=== PATIENT | male | born 1935 | race Caucasian/White ===

== ENCOUNTER 2020-06-26 22:14 | Observation (INO) | payer MEDICARE, SELFPAY ==
[2020-06-26 22:28] VITALS: BP 114/52; PULSE 60; RESP 18; TEMP 36.6; O2SAT 99
--- NOTE | 2020-06-26 22:57 | ED.GENADULT ---
HPI - General Adult General Chief complaint: GI Bleed Stated complaint: rectal bleeding,warfarin Time Seen by Provider: 06/26/20 22:41 Source: patient History of Present Illness HPI narrative: Patient is a 84 y/o male complaining of rectal bleed starting prior to arrival. He states that he was having an BM and he noticed large amount of blood. He denies any abdominal pain, nausea or vomiting. He states that he has chronic SOB. He denies any chest pain. Related Data Home Medications Medication Instructions Recorded Confirmed aspirin 81 mg PO DAILY 06/26/20 atorvastatin 10 mg PO DAILY 06/26/20 carvedilol 6.25 mg PO Q12H 06/26/20 cholecalciferol (vitamin D3) 25 mcg PO DAILY 06/26/20 [Vitamin D3] isosorbide mononitrate 30 mg PO DAILY 06/26/20 mecobalamin (vitamin B12) 1,000 mcg PO DAILY 06/26/20 warfarin 4 mg PO DAILY 06/26/20 Allergies Allergy/AdvReac Type Severity Reaction Status Date / Time Penicillins AdvReac Hives Verified 06/26/20 22:58 Review of Systems Constitutional: Constitutional: Denies chills, Denies fever(s), Denies headache(s) and Denies weakness Eyes: Eyes: Denies blurry vision ENT: Denies headache(s) and Denies neck pain Cardiovascular: Cardiovascular: Denies chest pain and Denies dyspnea Respiratory: Respiratory: Denies cough and Denies dyspnea Gastrointestinal: Gastrointestinal: Denies abdominal pain, Reports hematochezia, Denies diarrhea, Denies nausea and Denies vomiting Genitourinary: Genitourinary: Denies hematuria and Denies dysuria Musculoskeletal: Musculoskeletal: Denies back pain and Denies neck pain Neurologic: Denies headache(s) and Denies weakness Exam Const: General: no acute distress and well developed Orientation/consciousness: oriented to person, oriented to place, oriented to time and patient oriented x3 HENMT: Head: normocephalic Ears: external ears normal General nose exam: Normal external nose present Eyes: General: appearance normal, both eyes and all related structures Conjunctivae: conjunctivae normal Neck: Neck: normal visual inspection and full ROM Chest: Chest palpation & inspection: normal inspection of the chest and no tenderness Resp: Effort & Inspection: normal respiratory effort Auscultation: clear to auscultation bilaterally Cardio: Rate: regular rate Rhythm: abnormal rhythm irregularly irregular GI: GI Palp: No abdominal tenderness and Yes Soft to palpation Skin: General skin exam: normal color and turgor normal Neuro: General: oriented to person, oriented to place, oriented to time and patient oriented x3 Cognition (Neuro): normal cognition Extrem: General: normal to inspection, full ROM and no pedal edema Psych: Appearance: grossly normal Mental Status: mental status grossly normal Affect: normal affect Course Consultations Consultation #1: Discussed with Dr. Samaniego, who agrees to admit. She also recommends GI consult. Date: 06/27/20 Time: 00:15 Consultation #2: Discussed with Dr. Laura Norwood, who agrees to consult. Date: 06/27/20 Time: 00:22 Vital Signs Vital signs: Vital Signs Temperature 36.6 C 06/26/20 22:28 Pulse Rate 60 06/26/20 22:28 Respiratory Rate 18 06/26/20 22:28 Blood Pressure 114/52 L 06/26/20 22:28 Pulse Oximetry 99 06/26/20 22:28 Temperature 36.6 C 06/26/20 22:28 Pulse Rate 87 06/27/20 00:43 Respiratory Rate 19 06/27/20 00:43 Blood Pressure 117/65 06/27/20 00:43 Pulse Oximetry 98 06/27/20 00:43 Medical Decision Making Vital Signs Vital Signs: Vital Signs Temperature 36.6 C 06/26/20 22:28 Pulse Rate 60 06/26/20 22:28 Respiratory Rate 18 06/26/20 22:28 Blood Pressure 114/52 L 06/26/20 22:28 Pulse Oximetry 99 06/26/20 22:28 Temperature 36.6 C 06/26/20 22:28 Pulse Rate 87 06/27/20 00:43 Respiratory Rate 19 06/27/20 00:43 Blood Pressure 117/65 06/27/20 00:43 Pulse Oximetry 98 06/27/20 00:43 Lab Data Result diagrams
[2020-06-26 23:07] VITALS: BP 123/84; PULSE 93; RESP 13; O2SAT 98
[2020-06-26 23:17] LABS: Basophils Percent Auto 0.2 % (0.2-1.2); Eosinophils Absolute Auto 0.1 K/mm3 (0-0.3); Eosinophils Percent Auto 0.8 % (0-4.4); Hematocrit 31.1 % (42.0-52.0); Hemoglobin 9.9 g/dL (14.0-18.0); Immature Granulocyte Absolute 0.02 K/mm3 (0.00-0.031); Immature Granulocyte Percent A 0.2 % (0-0.5); Lymphocytes Absolute Auto 10.61 K/mm3 (0.9-3.2); Lymphocytes Percent Auto 80.9 % (18.3-44.2); Mean Corpuscular HGB Conc 31.8 g/dl (32-36); Mean Corpuscular Hemoglobin 30.8 pg (26-34); Mean Corpuscular Volume 96.9 fl (80-100); Mean Platelet Volume 9.7 fl (7.4-10.4); Monocytes Absolute Auto 0.6 K/mm3 (0.1-0.6); Monocytes Percent Auto 4.9 % (2.6-8.5); Neutrophils Absolute Auto 1.7 K/mm3 (1.3-6.7); Platelet Count Result 121 k/mm3 (150-375); Red Blood Count 3.21 M/mm3 (4.6-6.20); White Blood Count 13.1 K/mm3 (4.5-10.0)
[2020-06-26 23:29] LABS: Alanine Aminotransferase 15 U/L (4-50); Albumin Level 3.8 g/dL (3.5-5.1); Alkaline Phosphatase 75 U/L (38-126); Anion Gap 9 mmol/L (8-16); Anisocytosis 1+ (NORMAL); Aspartate Amino Transferase 27 U/L (17-59); Bilirubin,Total 0.4 mg/dL (0.2-1.3); Blood Urea Nitrogen 52 mg/dL (9-20); Calcium 9.4 mg/dL (8.4-10.2); Carbon Dioxide 24 mmol/L (22-30); Chloride 105 mmol/L (98-107); Estimated CRCL calculation 21 ml/min; Estimated Glomerular Filt Rate 29; Glucose 164 mg/dL (75-110); Ovalocytes 1+ (NORMAL); Platelet Estimate Adequate (Adequate); Potassium 4.9 mmol/L (3.4-5.0); Sodium 138 mmol/L (137-145)
[2020-06-26 23:29] LABS: INR 3.2; Prothrombin Time 31.8 Seconds (11.1-14.7)
[2020-06-26 23:30] LABS: Partial Thromboplastin Time 48.4 SECONDS (22.3-36.8)
[2020-06-26 23:30] LABS: Smudge Cells FEW
--- NOTE | 2020-06-26 23:31 | ECG_ITS ---
Measurements Intervals [place] Rate: 85 P: AL: 0 QRS: 31 QRSD: 91 T: 69 QT: 354 QTc: 423 Interpretive Statements SINUS RHYTHM WITH MARKED FIRST DEGREE AV BLOCK ATRIAL PREMATURE COMPLEXES LOW QRS VOLTAGE IN PRECORDIAL LEADS NONSPECIFIC ST & T-WAVE ABNORMALITY- LAT/HIGH LAT LEADS BASELINE ARTIFACT- I, II, AVR, V5 ABNORMAL ECG Electronically Signed On 06-27-2020 6:43:22 CDT by Dante Soriano D.O.
[2020-06-27] VITALS (23 sets, daily range): BP systolic 100–146; BP diastolic 53–79; PULSE 74–94; RESP 12–20; TEMP 35.9–37.2; O2SAT 97–100; BMI 25.6
--- NOTE | 2020-06-27 01:49 | ADMGEN ---
This patient, Trey Sargent, was admitted to 2 Medical Room 250-01. Patient/family oriented to hospital policies and general routines including ID bracelet, bed and alarms, visiting hours, pain management, procedures, bathroom and other care routines, personal items, smoking policy, room service/diet, and visiting hours. Valuables list has been completed. Information on how to activate the Rapid Response Team has been discussed. Patient/Family are encouraged to report perceived risks to care and to ask questions if they do not understand what they are told or what they should do.
[2020-06-27 02:32] LABS: Hematocrit 28.9 % (42.0-52.0); Hemoglobin 9.3 g/dL (14.0-18.0)
[2020-06-27 06:27] LABS: Hematocrit 28.7 % (42.0-52.0); Hemoglobin 9.2 g/dL (14.0-18.0)
[2020-06-27 07:51] LABS: Hematocrit 29.1 % (42.0-52.0); Hemoglobin 9.2 g/dL (14.0-18.0); Mean Corpuscular HGB Conc 31.6 g/dl (32-36); Mean Corpuscular Hemoglobin 30.9 pg (26-34); Mean Corpuscular Volume 97.7 fl (80-100); Mean Platelet Volume 9.6 fl (7.4-10.4); Platelet Count Result 106 k/mm3 (150-375); Red Blood Count 2.98 M/mm3 (4.6-6.20); Red Cell Distribution Width 17.3 % (11.5-14.5); White Blood Count 12.1 K/mm3 (4.5-10.0)
[2020-06-27 08:08] LABS: Anion Gap 6 mmol/L (8-16); Blood Urea Nitrogen 50 mg/dL (9-20); Calcium 8.7 mg/dL (8.4-10.2); Carbon Dioxide 23 mmol/L (22-30); Chloride 108 mmol/L (98-107); Estimated CRCL calculation 24 ml/min; Estimated Glomerular Filt Rate 34; Glucose 114 mg/dL (75-110); Magnesium 2.1 mg/dL (1.6-2.3); Potassium 4.4 mmol/L (3.4-5.0); Sodium 137 mmol/L (137-145)
[2020-06-27 08:09] LABS: INR 3.1; Prothrombin Time 31.1 Seconds (11.1-14.7)
[2020-06-27] MEDS: ISOSORBIDE MONONITRATE 30 MG TAB.ER.24H PO (08:23)
[2020-06-27] MEDS: carvediloL 6.25 MG TABLET PO ×2 (08:23→22:19)
--- NOTE | 2020-06-27 10:22 | PM.IMHP ---
H&P: HPI History of Present Illness Date/Time: 06/27/20 10:22 Chief complaint: rectal bleeding Narrative: Trey Sargent is a 84 year old male with history of CAD s/p [place] 2 years ago, a. fib (listed in medical history but patient states he has never been told this; has pacemaker and is on chcf a/c with warfarin), and diet controlled diabetes who presented to the ER on 06/27 with complaints of rectal bleeding. Patient states he has had dark stools as black as that tv screen , pointing to the tv in the room, for about 2 months time. He notes that yesterday evening when he was taking his blood pressure before he went to bed, he had a sudden urge to defecate. On the way to the bathroom, he could not hold it any longer and noted bright red blood in his stool mixed with dark stool, prompting him to proceed to the ER. He denies any associated nausea/vomiting or abdominal pain. No history of GI bleed in the past. He has had some dizziness as of recently, and also feeling generally weak. He has chronic SOB and notes that this has been going on for years and has had asbestos exposure but has never been told he has any lung disease such as COPD/asthma. Today, he had another BM that was mixed bright red blood and dark/black stool. He denies any other symptoms at this time or associated symptoms. He takes all his medications as prescribed, although does note he occasionally takes one additional aspirin a day if he is not feeling good . Denies f/c/s, current headaches, changes in v/h, cp/palpitations, cough, dysuria, hematuria, cloudy urine, calf pain/swelling, other evidence of blood loss. While in the ED, he was noted to have Hgb of 9.9 with normal MCV, and leukocytosis. VSS stable and afebrile. Case was discussed with Dr. Loco in the ED and accepted the patient as a consult. He has had 2 colonoscopies in the past, last one being 6-7 years ago. States in first scope the GI specialist removed 3 polyps and second scope removed 6 polyps. He notes that he fell back in July and had a pacemaker placed by Dr. Pierce, EP physician at [facility]. He was never told he had atrial fibrillation and notes they could not find any arrhythmia at that time. He also notes that he was taken off his oral hyperglycemics after his PCP, Dr. Rock, noted his kidney function was worsened and subsequently lost weight and now is diet controlled DM. He says he has never been told he has had chronic kidney disease. Review of Systems Review of Systems: All systems reviewed & are unremarkable except as noted in HPI and below PMFSH Past Medical History Medical History Acute [place] Asbestos exposure Atrial fibrillation CAD (coronary artery disease) Chronic shortness of breath Current use of oysterman anticoagulation Diet-controlled diabetes mellitus Renal failure Skin cancer Surgical History Surgical History History of local excision of skin lesion History of permanent cardiac pacemaker placement History of thoracentesis Family History Family History Father Pneumonia Social History Social History Social History: Patient lives at home with his , Thee, and his son. He wishes his to be his surrogate MDM. He wishes to be a full code. He sees Dr. Rock as his PCP and Dr. 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 Smoking status: Former smoker Tobacco type: pipe, cigars and smokeless tobacco Smokeless tobacco user: chewing tobacco Second hand tobacco smoke exposure: No Smoking end date: 10/06/73 Alcohol intake: never Substance use: never Substance use type: does not use Spiritual care concerns: No Meds Home Medications and Allergies Home Medications Medication Instructions Recorded Confirmed Type aspirin 81 mg PO DAILY 06/26/20 06/27/20
[2020-06-27 11:23] LABS: Hematocrit 29.9 % (42.0-52.0); Hemoglobin 9.4 g/dL (14.0-18.0)
[2020-06-27 11:32] LABS: Glucose Point of Care 137 (65-105)
[2020-06-27] MEDS: SODIUM CHLORIDE 0.9% IV 1,000 ML 75 ML IV CONT (12:19)
[2020-06-27 13:01] LABS: Hemoglobin A1C 5.7 % (<5.7)
--- NOTE | 2020-06-27 15:52 | WPDGICN ---
Assessment and Plan Assessment and plan (1) GI bleed: Code(s): K92.2 - Gastrointestinal hemorrhage, unspecified Status: Acute Assessment and Plan: in setting of coumadin with inr 3 differential could be diverticular bleed, avm's, perianal but also he mentioned dark stools patient would like to find out source of bleeding, I discussed with hospitalist who will order FFP to reverse inr and then we can proceed with both egd and colonoscopy. he has been dizzy lately and hb ~ 9 (2) Rectal bleeding: Code(s): K62.5 - Hemorrhage of anus and rectum Status: Acute Assessment and Plan: continue to monitor trend hb (3) Warfarin-induced coagulopathy: Code(s): D68.32 - Hemorrhagic disorder due to extrinsic circulating anticoagulants; T45.515A - Adverse effect of anticoagulants, initial encounter Status: Acute Assessment and Plan: FFP now and check inr (4) Renal failure: Code(s): N19 - Unspecified kidney failure Status: Acute Assessment and Plan: unknown baseline (5) Normocytic anemia: Code(s): D64.9 - Anemia, unspecified Status: Acute Assessment and Plan: monitor hb (6) CAD (coronary artery disease): Code(s): I25.10 - Atherosclerotic heart disease of [place] coronary artery without angina pectoris Status: Acute GI Consult Note Consult date/time: 06/27/20 15:52 Reason for consult: rectal bleeding HPI: Trey Sargent is a 84 year old male with history of CAD s/p [place] 2 years ago, Afib s/p pacemaker last year at [facility] using coumadin for almost 2 years, diet controlled diabetes who came to the ER with new onset of rectal bleeding. He also has been having darker stools than normal for almost 2 months, has been feeling dizzy upon standing since he got his pacemaker. Yesterday had sudden urge to defecate and he had accident as he was not able to hold it and noted bright red blood in his stool mixed with dark stool,then had another episode. INR 3, hb 9.4, creat 2. His last colonoscopy at [facility] about 6 years ago with polyps, does not remember having egd. Review of Systems Constitutional: Constitutional: Denies headache(s) and Denies weakness Eyes: Eyes: Denies blurry vision ENT: Reports Normal hearing present, Denies headache(s) and Denies neck pain Cardiovascular: Cardiovascular: Denies chest pain and Denies dyspnea Respiratory: Respiratory: Denies dyspnea Gastrointestinal: Gastrointestinal: Reports hematochezia Genitourinary: Genitourinary: Denies dysuria Musculoskeletal: Musculoskeletal: Denies neck pain Integumentary/Breasts: Skin/Breast: Denies dry skin Neurologic: Reports Normal hearing present and Reports dizziness Psychiatric: Psychiatric: Denies anxiety Endocrine: Endocrine: Denies change in body appearance Hematologic/Lymphatic: Comments: using coumadin Allergic/Immunologic: Allergic/Immunologic: Denies urticaria PMFSH Past Medical History Medical History Acute [place] Asbestos exposure Atrial fibrillation CAD (coronary artery disease) Chronic shortness of breath 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 He wishes his to be his surrogate MDM. He wishes to be a full code. He sees Dr. Rock as his PCP and Dr. Isaac as his Veterinary Laboratory Technician. Smoking status: Former smoker Tobacco type: pipe, cigars and smokeless tobacco Smokeless tobacco use
[2020-06-27] MEDS: SODIUM CHLORIDE 0.9% IV 250 ML 30 ML IV CONT ×2 (16:36→22:21)
[2020-06-27 16:42] LABS: Glucose Point of Care 161 (65-105)
[2020-06-27] MEDS: PEG (High)/E-LYTE SOLN 4,000 ML BTL 4000 ML PO (17:16)
[2020-06-27] MEDS: BISACODYL 5 MG TABLET EC 20 MG PO (17:19)
--- NOTE | 2020-06-27 17:25 | PC.NURSE ---
Fresh frozen plasma started at 1715. Vital signs taken prior. See vital signs. Unit number [id number]. Verified with Dayan Haro RN.
[2020-06-28] VITALS (20 sets, daily range): BP systolic 102–144; BP diastolic 48–82; PULSE 78–120; RESP 14–20; TEMP 36.2–37.2; O2SAT 99–100
[2020-06-28 00:38] LABS: Glucose Point of Care 94 (65-105)
[2020-06-28 01:18] LABS: Hematocrit 25.4 % (42.0-52.0)
[2020-06-28 01:23] LABS: INR 2.2
--- NOTE | 2020-06-28 03:02 | PC.NURSE ---
Pt having more difficulty drinking bowel prep, still more than half remaining. Informed pt that I could contact the doctor and place an NG tube to help pt consume bowel prep faster without the difficulty of drinking it, the pt refused and stated he wants to keep trying to drink it at this time.
--- NOTE | 2020-06-28 03:05 | PC.NURSE ---
First unit of plasma completed at 1930, vital signs recorded.
--- NOTE | 2020-06-28 03:06 | PC.NURSE ---
Second unit of frozen plasma started at 2235, vital signs recorded, Sadaf Mendoza assisted with check and co-signed. Second unit of plasma completed at 2355, vital signs recorded.
--- NOTE | 2020-06-28 03:16 | PC.NURSE ---
Second unit of frozen plasma started at 2215, vital signs recorded, Sadaf Mendoza assisted with check and co-signed. Second unit of plasma completed at 2355, vital signs recorded.
[2020-06-28] MEDS: MAGNESIUM CITRATE 300 ML BTL 150 ML PO (04:45)
[2020-06-28 04:51] LABS: Hematocrit 29.4 % (42.0-52.0); Hemoglobin 9.5 g/dL (14.0-18.0); Mean Corpuscular HGB Conc 32.3 g/dl (32-36); Mean Corpuscular Hemoglobin 30.6 pg (26-34); Mean Corpuscular Volume 94.8 fl (80-100); Mean Platelet Volume 9.2 fl (7.4-10.4); Platelet Count Result 114 k/mm3 (150-375); Red Cell Distribution Width 16.9 % (11.5-14.5); White Blood Count 14.6 K/mm3 (4.5-10.0)
[2020-06-28 05:06] LABS: Anion Gap 8 mmol/L (8-16); Blood Urea Nitrogen 40 mg/dL (9-20); Carbon Dioxide 24 mmol/L (22-30); Chloride 106 mmol/L (98-107); Estimated CRCL calculation 24 ml/min; Estimated Glomerular Filt Rate 34; Glucose 133 mg/dL (75-110); Magnesium 2.1 mg/dL (1.6-2.3); Potassium 4.6 mmol/L (3.4-5.0); Sodium 138 mmol/L (137-145)
[2020-06-28 05:10] LABS: Prothrombin Time 22.6 Seconds (11.1-14.7)
[2020-06-28 07:50] LABS: Glucose Point of Care 123 (65-105)
[2020-06-28 07:51] LABS: Glucose Point of Care 136 (65-105)
[2020-06-28] MEDS: SODIUM CHLORIDE 0.9% IV 250 ML 30 ML IV CONT (08:20)
--- NOTE | 2020-06-28 09:00 | PC.NURSE ---
To GI Lab per STEPHANI kwong intact. Report given to HAZEL Ramsey.
--- NOTE | 2020-06-28 09:16 | WPDANESEPPF ---
Anes - Initial Pre Proc Eval Procedure: Operation Date: 06/28/20 10:00 Proposed Procedures p Esophagogastroduodenoscopy & Colonoscopy - Nazario Son MD Date/Time: 06/28/20 09:16 Surgeon: Don Rabago PA-C Pre Op Diagnosis: rectal bleeding Patient Data Age: 84 Gender: M Height: 5 ft 7 in Weight: 74.2 kg Last Vital Signs Temp 97.7 F 06/28/20 08:50 Pulse 101 H 06/28/20 08:50 Resp 19 06/28/20 08:50 BP 102/70 06/28/20 08:50 Pulse Ox 100 06/28/20 08:50 Allergies Allergy/AdvReac Type Severity Reaction Status Date / Time Penicillins Allergy Hives Verified 06/27/20 10:50 Home Medications Medication Instructions Recorded Confirmed Type aspirin 81 mg PO DAILY 06/26/20 06/27/20 History atorvastatin 10 mg PO DAILY 06/26/20 06/27/20 History carvedilol 6.25 mg PO Q12H 06/26/20 06/27/20 History cholecalciferol (vitamin D3) 25 mcg PO DAILY 06/26/20 06/27/20 History [Vitamin D3] isosorbide mononitrate 30 mg PO DAILY 06/26/20 06/27/20 History mecobalamin (vitamin B12) 1,000 mcg PO DAILY 06/26/20 06/27/20 History warfarin 4 mg PO DAILY 06/26/20 06/27/20 History Laboratory Tests 06/26/20 06/26/20 06/27/20 22:28 22:28 10:50 WBC RBC Hgb 9.4 g/dL L g/dL (14.0-18.0) Hct 29.9 % L % (42.0-52.0) MCV MCH MCHC RDW Plt Count MPV PT INR Sodium Potassium Chloride Carbon Dioxide Anion Gap BUN Creatinine Estim Creat Clear Calc Estimated GFR Glucose POC Capillary Glucose Hemoglobin A1c Calcium Magnesium Blood Type B Positive B Positive 06/27/20 06/27/20 06/27/20 11:30 12:42 16:35 WBC RBC Hgb Hct MCV MCH MCHC RDW Plt Count MPV PT INR Sodium Potassium Chloride Carbon Dioxide Anion Gap BUN Creatinine Estim Creat Clear Calc Estimated GFR Glucose POC Capillary Glucose 137 mg/dl H mg/dl 161 mg/dl H mg/dl (65-105) (65-105) Hemoglobin A1c 5.7 % % (<5.7) Calcium Magnesium Blood Type 06/28/20 06/28/20 06/28/20 00:04 01:06 01:06 WBC RBC Hgb 8.0 g/dL L g/dL (14.0-18.0) Hct 25.4 % L % (42.0-52.0) MCV MCH MCHC RDW Plt Count MPV PT 24.0 Seconds H D Seconds (11.1-14.7) INR 2.2 Sodium Potassium Chloride Carbon Dioxide Anion Gap BUN Creatinine Estim Creat Clear Calc Estimated GFR Glucose POC Capillary Glucose 94 mg/dl mg/dl (65-105) Hemoglobin A1c Calcium Magnesium Blood Type 06/28/20 06/28/20 06/28/20 04:44 04:44 04:44 WBC 14.6 K/mm3 H K/mm3 (4.5-10.0) RBC 3.10 M/mm3 L M/mm3 (4.6-6.20) Hgb 9.5 g/dL L g/dL (14.0-18.0) Hct 29.4 % L % (42.0-52.0) MCV 94.8 fl fl (80-100) MCH 30.6 pg pg (26-34) MCHC 32.3 g/dl g/dl (32-36) RDW 16.9 % H % (11.5-14.5) Plt Count 114 k/mm3 L k/mm3 (150-375) MPV 9.2 fl fl (7.4-10.4) PT 22.6 Seconds H Seconds (11.1-14.7) INR 2.0 Sodium 138 mmol/L mmol/L (137-145) Potassium 4.6 mmol/L mmol/L (3.4-5.0) Chloride
[2020-06-28] MEDS: LACTATED RINGERS 1,000 ML 150 ML IV CONT (09:50)
--- NOTE | 2020-06-28 10:04 | SUR.OPER ---
EGD ENDED 999 COLONOSCOPY STARTED 1003
--- NOTE | 2020-06-28 10:05 | SUR.OPER ---
EGD ENDED 1000, COLONOSCOPY STARTED 100
--- NOTE | 2020-06-28 11:05 | PC.NURSE ---
Returned from GI lab per elenita. Report received from HAZEL Davidson.
[2020-06-28] MEDS: carvediloL 6.25 MG TABLET PO ×2 (11:23→20:12)
[2020-06-28] MEDS: ISOSORBIDE MONONITRATE 30 MG TAB.ER.24H PO (11:23)
[2020-06-28 11:35] LABS: Glucose Point of Care 106 (65-105)
--- NOTE | 2020-06-28 11:46 | P.PNIM_ITS ---
Progress Note: A&P Assessment and Plan (1) GI bleed: Code(s): K92.2 - Gastrointestinal hemorrhage, unspecified Status: Acute Assessment and Plan: Dark/black stools reported x 2 months with new BRBPR on day of arrival. Anemia noted with it relatively stable since admission. GI has been consulted from ED; appreciate recommendations. Colonoscopy revealed multiple AVMs with APC performed. EGD today revealed erosive gastritis. GI recommends daily PPI and hold warfarin for an additional 5 days given APC treatments. [place] to be possibly multifactorial with above findings. No signs of bleeding at time of scopes. Spoke with Luz at Dr. Isaac office([employer]) about above findings; they will follow up with patient about recent findings and holding warfarin. She also confirms patient takes warfarin for A. fib and has been in therapeutic range with INRs in past months in low 2's. * Hold warfarin and aspirin for now * Continue daily PPI; will discharge patient on this * diet resumed per GI * Monitor H&H tomorrow * Await further rec from GI (2) Normocytic anemia: Code(s): D64.9 - Anemia, unspecified Status: Acute Assessment and Plan: Hgb 9.5; stable. Likely acute GI blood loss on possible chronic anemia. Unclear if there is baseline chronic anemia, but notes taking a daily Vit B12. * Records requested from [place] * Monitor H&H tomorrow * transfuse PRN * Await further rec from GI (3) Atrial fibrillation: Qualifiers: Atrial fibrillation type: unspecified chronic Qualified Code(s): I48.20 - Chronic atrial fibrillation, unspecified Code(s): I48.91 - Unspecified atrial fibrillation Status: Acute Assessment and Plan: As above, patient denies this diagnosis, although confirmed by Dr. Isaac office. Has a pacemaker. Mildly supratherapeutic on arrival; given 3 u FFP per GI rec for procedures today. * Continue carvedilol * Warfarin held for now; will resume on 9/29 after holding for 5 days per GI rec * Monitor (4) CAD (coronary artery disease): Code(s): I25.10 - Atherosclerotic heart disease of [place] coronary artery without angina pectoris Status: Acute Assessment and Plan: [place] 2 years ago. No acute issues * Continue home medications, but will continue to hold aspirin for now * Monitor (5) Diet-controlled diabetes mellitus: Code(s): E11.9 - Type 2 diabetes mellitus without complications Status: Acute Assessment and Plan: States he take oral medication at one time but was told to stop as his kidney function worsened, but denies chronic kidney disease. A1c 5.7. * hypoglycemia protocol, and HH diet per GI (6) Chronic shortness of breath: Code(s): R06.02 - Shortness of breath Status: Acute Assessment and Plan: States this has been going on for years. Patient denies any lung disease but mentions asbestos exposure in the past. 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 fib. Mildly supratherapeutic on arrival as stated above. INR has been low 2s the past couple of
--- NOTE | 2020-06-28 11:46 | PM.IMPN ---
Progress Note: A&P Assessment and Plan (1) GI bleed: Code(s): K92.2 - Gastrointestinal hemorrhage, unspecified Status: Acute Assessment and Plan: Dark/black stools reported x 2 months with new BRBPR on day of arrival. Anemia noted with it relatively stable since admission. GI has been consulted from ED; appreciate recommendations. Colonoscopy revealed multiple AVMs with APC performed. EGD today revealed erosive gastritis. GI recommends daily PPI and hold warfarin for an additional 5 days given APC treatments. [place] to be possibly multifactorial with above findings. No signs of bleeding at time of scopes. Spoke with Luz at Dr. Isaac office([employer]) about above findings; they will follow up with patient about recent findings and holding warfarin. She also confirms patient takes warfarin for A. fib and has been in therapeutic range with INRs in past months in low 2's. Hold warfarin and aspirin for now Continue daily PPI; will discharge patient on this diet resumed per GI Monitor H&H tomorrow Await further rec from GI (2) Normocytic anemia: Code(s): D64.9 - Anemia, unspecified Status: Acute Assessment and Plan: Hgb 9.5; stable. Likely acute GI blood loss on possible chronic anemia. Unclear if there is baseline chronic anemia, but notes taking a daily Vit B12. Records requested from [facility] Monitor H&H tomorrow transfuse PRN Await further rec from GI (3) Atrial fibrillation: Qualifiers: Atrial fibrillation type: unspecified chronic Qualified Code(s): I48.20 - Chronic atrial fibrillation, unspecified Code(s): I48.91 - Unspecified atrial fibrillation Status: Acute Assessment and Plan: As above, patient denies this diagnosis, although confirmed by Dr. Isaac office. Has a pacemaker. Mildly supratherapeutic on arrival; given 3 u FFP per GI rec for procedures today. Continue carvedilol Warfarin held for now; will resume on 07/04 after holding for 5 days per GI rec Monitor (4) CAD (coronary artery disease): Code(s): I25.10 - Atherosclerotic heart disease of [place] coronary artery without angina pectoris Status: Acute Assessment and Plan: [place] 2 years ago. No acute issues Continue home medications, but will continue to hold aspirin for now Monitor (5) Diet-controlled diabetes mellitus: Code(s): E11.9 - Type 2 diabetes mellitus without complications Status: Acute Assessment and Plan: States he take oral medication at one time but was told to stop as his kidney function worsened, but denies chronic kidney disease. A1c 5.7. hypoglycemia protocol, and HH diet per GI (6) Chronic shortness of breath: Code(s): R06.02 - Shortness of breath Status: Acute Assessment and Plan: States this has been going on for years. Patient denies any lung disease but mentions asbestos exposure in the past. He is not on any inhalers and does not appear to have bronchospasm Monitor for now Consider PRN albuterol if symptoms worsen Consider Echo with CAD history Records requested from [facility] (7) Current use of senior care anticoagulation: Code(s): Z79.01 - nursing home (current) use of anticoagulants Status: Acute Assessment and Plan: Takes for a. fib. Mildly supratherapeutic on arrival as stated above. 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 Stable. Unclear baseline but notes that he w
[2020-06-28] MEDS: PANTOPRAZOLE SODIUM IV 40 MG VIAL IV PUSH (14:31)
[2020-06-28] MEDS: ATORVASTATIN 10 MG TABLET PO (15:49)
[2020-06-29 02:00] VITALS: BP 109/66; PULSE 90; RESP 12; TEMP 37.2; O2SAT 99
[2020-06-29 05:44] LABS: Hematocrit 25.1 % (42.0-52.0); Mean Corpuscular HGB Conc 31.9 g/dl (32-36); Mean Corpuscular Volume 97.3 fl (80-100); Platelet Count Result 94 k/mm3 (150-375); Red Blood Count 2.58 M/mm3 (4.6-6.20); Red Cell Distribution Width 17.1 % (11.5-14.5); White Blood Count 9.8 K/mm3 (4.5-10.0)
[2020-06-29 05:52] LABS: INR 1.8; Prothrombin Time 20.6 Seconds (11.1-14.7)
[2020-06-29 05:58] LABS: Anion Gap 5 mmol/L (8-16); Blood Urea Nitrogen 36 mg/dL (9-20); Calcium 8.6 mg/dL (8.4-10.2); Carbon Dioxide 24 mmol/L (22-30); Chloride 107 mmol/L (98-107); Estimated CRCL calculation 25 ml/min; Estimated Glomerular Filt Rate 36; Glucose 121 mg/dL (75-110); Magnesium 2.1 mg/dL (1.6-2.3); Potassium 4.1 mmol/L (3.4-5.0); Sodium 136 mmol/L (137-145)
[2020-06-29 06:00] VITALS: BP 131/71; PULSE 94; RESP 16; TEMP 36.9; O2SAT 100
--- NOTE | 2020-06-29 07:29 | WPDANESPN ---
Anes - Prog Note Post-Op Date/Time: 06/29/20 07:29 Cardiovascular status: normal Respiratory status: normal Airway patency: baseline Mental status: baseline Post-Op hydration status: normal Vital Signs: Last Vital Signs Temp 36.9 C 06/29/20 06:00 Pulse 94 06/29/20 06:00 Resp 16 06/29/20 06:00 BP 131/71 06/29/20 06:00 Pulse Ox 100 06/29/20 06:00 Pain Score (VAS): 2 I/O: Intake & Output 06/28/20 06/28/20 06/29/20 15:59 23:59 07:59 Intake Total 1401 690 150 Balance 1401 690 150 Laboratory Tests 06/29/20 05:27 06/29/20 05:27 06/26/20 06/28/20 06/28/20 22:28 06:25 07:47 WBC RBC Hgb Hct MCV MCH MCHC RDW Plt Count MPV PT INR Sodium Potassium Chloride Carbon Dioxide Anion Gap BUN Creatinine Estim Creat Clear Calc Estimated GFR Glucose POC Capillary Glucose 136 H 123 H Calcium Magnesium Blood Type B Positive 06/28/20 06/29/20 06/29/20 11:30 05:27 05:27 WBC 9.8 RBC 2.58 L Hgb 8.0 L Hct 25.1 L MCV 97.3 MCH 31.0 MCHC 31.9 L RDW 17.1 H Plt Count 94 L MPV 10.0 PT 20.6 H INR 1.8 Sodium Potassium Chloride Carbon Dioxide Anion Gap BUN Creatinine Estim Creat Clear Calc Estimated GFR Glucose POC Capillary Glucose 106 Calcium Magnesium Blood Type 06/29/20 05:27 WBC RBC Hgb Hct MCV MCH MCHC RDW Plt Count MPV PT INR Sodium 136 L Potassium 4.1 Chloride 107 Carbon Dioxide 24 Anion Gap 5 L BUN 36 H Creatinine 1.80 H Estim Creat Clear Calc 25 Estimated GFR 36 L Glucose 121 H POC Capillary Glucose Calcium 8.6 Magnesium 2.1 Blood Type Patient Feedback: Patient satisfied with anesthetic care.
--- NOTE | 2020-06-29 08:20 | WPDGIPROGNO ---
Progress Note: A&P Assessment and Plan (1) AVM (arteriovenous malformation) of colon: Code(s): K55.20 - Angiodysplasia of colon without hemorrhage Status: Acute (2) Rectal bleeding: Code(s): K62.5 - Hemorrhage of anus and rectum Status: Acute Assessment and Plan: resolved. Probably multifactorial (non-bleeding avm colon but treated with APC, also had erosive gastritis, had diverticulosis but no bleeding). ok to resume coumadin in about 5 days ok to go home and follow up with his doctor (3) Erosive gastritis: Code(s): K29.60 - Other gastritis without bleeding Status: Acute Assessment and Plan: continue with ppi (4) Current use of intermediate designer anticoagulation: Code(s): Z79.01 - assisted (current) use of anticoagulants Status: Acute Assessment and Plan: resume in about 5 days (5) Atrial fibrillation: Qualifiers: Atrial fibrillation type: unspecified chronic Qualified Code(s): I48.20 - Chronic atrial fibrillation, unspecified Code(s): I48.91 - Unspecified atrial fibrillation Status: Acute Subjective Date/time seen: 06/29/20 08:20 Interval history: egd showed erosive gastritis, also 2 AMV's in colon treated with APC (no bleeding) he is having breakfast, no report of bleeding and would like to go home. Review of Systems Review of Systems: All systems reviewed & are unremarkable except as noted in HPI and below Exam Const: General: comfortable and no acute distress HENMT: General nose exam: Normal nares present Eyes: General: appearance normal, both eyes and all related structures Neck: Neck: no JVD Resp: Auscultation: clear to auscultation bilaterally Cardio: Rate: regular rate Rhythm: regular rhythm GI: Inspection: non-distended GI Palp: Yes Soft to palpation Auscultation: normal bowel sounds Skin: General skin exam: normal color Neuro: General: gait normal Speech: normal speech Extrem: General: normal to inspection Psych: Mental Status: mental status grossly normal Objective Data Vital Signs Vital Signs: Vital Signs - 24 hr 06/28/20 08:25 06/28/20 08:35 06/28/20 08:50 Temperature 97.1 F L 97.1 F L 97.7 F Pulse Rate 87 86 101 H Respiratory Rate 20 20 19 Blood Pressure 120/70 120/70 102/70 Pulse Oximetry 100 99 100 06/28/20 09:32 06/28/20 09:50 06/28/20 10:26 Temperature 97.2 F L Pulse Rate 117 H 95 79 Respiratory Rate 20 18 15 Blood Pressure 126/81 144/82 H 109/61 Pulse Oximetry 100 100 100 06/28/20 10:36 06/28/20 10:46 06/28/20 10:50 Temperature 97.6 F Pulse Rate 84 86 110 H Respiratory Rate 20 20 14 Blood Pressure 106/48 L 119/60 118/75 Pulse Oximetry 99 99 100 06/28/20 11:15 06/28/20 11:23 06/28/20 14:00 Temperature 97.1 F L 97.5 F L Pulse Rate 110 H 110 H 92 Respiratory Rate 14 16 Blood Pressure 108/72 114/60 Pulse Oximetry 100 100 06/28/20 18:00 06/28/20 20:12 06/28/20 22:00 Temperature 98.6 F 98.9 F Pulse Rate 92 86 98 Respiratory Rate 18 16 Blood Pressure 116/76 116/72 Pulse Oximetry 100 99 06/29/20 02:00 06/29/20 06:00 Temperature 99.0 F 98.4 F Pulse Rate 90 94 Respiratory Rate 12 16 Blood Pressure 109/66 131/71 Pulse Oximetry 99 100 Intake/Output Intake/Output: Intake & Output 06/26/20 06/27/20 06/28/20 06/29/20 23:59 23:59 23:59 23:59 Intake Total 690 4121 150 Output Total 300 Balance 390 4121 150 Meds/Results Medications: Active Medications Generic Name Dose Route Start Last Admin Trade Name Freq PRN Reason Stop Dose Admin Atorvastatin Calcium 10 mg 06/28/20 11:20 06/28/20 15:49 Lipitor PO 10 mg DAILY PRATIK Administration Carvedilol 6.25 mg 06/27/20 09:00 06/28/20 20:12 Coreg PO 6.25 mg Q12HR PRATIK Administration Cyanocobalamin 1,000 mcg 06/29/20 09:00 Vitamin B-12 Tab PO DAILY PRATIK Dextrose 12.5 gm 06/27/20 10:49 Dextrose 50% Syringe IV PUSH PRN PRN Hypoglyce
[2020-06-29 08:24] VITALS: PULSE 97
[2020-06-29] MEDS: carvediloL 6.25 MG TABLET PO (08:24)
[2020-06-29] MEDS: PANTOPRAZOLE 40 MG TABLET PO (08:27)
[2020-06-29] MEDS: ATORVASTATIN 10 MG TABLET PO (08:27)
[2020-06-29] MEDS: ISOSORBIDE MONONITRATE 30 MG TAB.ER.24H PO (08:27)
[2020-06-29] MEDS: CYANOCOBALAMIN 1,000 MCG TABLET 1000 MCG PO (08:27)
[2020-06-29] MEDS: CHOLECALCIFEROL 1,000 UNITS TABLET 1000 UNITS PO (08:28)
--- NOTE | 2020-06-29 08:52 | PM.DS ---
DS: Admitting Diagnosis Admitting Diagnosis Admitting Diagnosis: rectal bleeding DS: Discharge Diagnosis Discharge Diagnosis (1) GI bleed: Code(s): K92.2 - Gastrointestinal hemorrhage, unspecified Status: Acute Assessment and Plan: Dark/black stools reported x 2 months with new BRBPR on day of arrival. Anemia noted with it relatively stable since admission. GI has been consulted from ED; appreciate recommendations. Colonoscopy revealed multiple AVMs with APC performed. EGD today revealed erosive gastritis. GI recommends daily PPI and hold warfarin for an additional 5 days given APC treatments. [place] to be possibly multifactorial with above findings. No signs of bleeding at time of scopes. Spoke with Luz at Dr. Isaac office ([employer] [employer] [facility]) about above findings; they will follow up with patient about recent findings and holding warfarin. She also confirms patient takes warfarin for A. fib and has been in therapeutic range with INRs in past months in low 2's. Hold warfarin and aspirin; resume on 07/04 and in two days, respectively Continue daily PPI; will discharge patient on this Repeat lab work next week F/u with PCP and GI, as well as, Cardiology as outpatient. Okay for discharge from GI standpoint (2) Normocytic anemia: Code(s): D64.9 - Anemia, unspecified Status: Acute Assessment and Plan: Hgb 8.0 today; decreased although no reports of recurrent bleeding; otherwise has been stable during stay. Likely acute GI blood loss on possible chronic anemia. Unclear if there is baseline chronic anemia, but notes taking a daily Vit B12. Records requested from [facility] Repeat H&H stable this morning; repeat in 1 week d/c today (3) Atrial fibrillation: Qualifiers: Atrial fibrillation type: unspecified chronic Qualified Code(s): I48.20 - Chronic atrial fibrillation, unspecified Code(s): I48.91 - Unspecified atrial fibrillation Status: Acute Assessment and Plan: As above, patient denies this diagnosis, although confirmed by Dr. Isaac' office. Has a pacemaker. Mildly supratherapeutic on arrival; given 3 u FFP per GI rec for procedures today. INR 1.8 today Continue carvedilol Warfarin held for now; will resume on 07/04 after holding for 5 days per GI rec. Dr. Isaac office made aware of plan Further management per [facility] (4) CAD (coronary artery disease): Code(s): I25.10 - Atherosclerotic heart disease of [place] coronary artery without angina pectoris Status: Acute Assessment and Plan: [place] 2 years ago. No acute issues Continue home medications, but will continue to hold aspirin for now Monitor (5) Diet-controlled diabetes mellitus: Code(s): E11.9 - Type 2 diabetes mellitus without complications Status: Acute Assessment and Plan: States he take oral medication at one time but was told to stop as his kidney function worsened, but denies chronic kidney disease. A1c 5.7. hypoglycemia protocol, and HH diet per GI (6) Chronic shortness of breath: Code(s): R06.02 - Shortness of breath Status: Acute Assessment and Plan: States this has been going on for years. Patient denies any lung disease but mentions asbestos exposure in the past. 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 fib. Mildly supratherapeutic on arrival as stated above. INR has been low 2s the past couple of months Resume warfarin on
[2020-06-29 10:00] VITALS: BP 113/69; PULSE 93; RESP 16; TEMP 36.8; O2SAT 98
[2020-06-29 10:50] LABS: Hematocrit 24.8 % (42.0-52.0)
== END 2020-06-29 12:58 | disposition home or self-care (01) ==
LOC: ANHED 06-27 00:46 → ANH2MED 06-27 01:48
PROVIDERS: Emergency Medicine; Internal Medicine Gastroenterology; Physician Assistant; Admitting Provider Internal Medicine; Emergency Provider Emergency Medicine; Visit Provider Family Medicine
PROC: 0DJ08ZZ Inspection of Upper Intestinal Tract, Via Natural or Artificial Opening Endoscopic (ICD-10-PCS; CPT 43235; principal; 2020-06-28 10:00)
DX: K92.2 Gastrointestinal hemorrhage, unspecified (principal); D64.9 Anemia, unspecified; D68.32 Hemorrhagic disorder due to extrinsic circulating anticoagulants; T45.515A Adverse effect of anticoagulants, initial encounter; N19 Unspecified kidney failure; B96.81 Helicobacter pylori [H. pylori] as the cause of diseases classified elsewhere; D12.2 Benign neoplasm of ascending colon; K55.20 Angiodysplasia of colon without hemorrhage; Q27.33 Arteriovenous malformation of digestive system vessel; K64.8 Other hemorrhoids; I48.20 Chronic atrial fibrillation, unspecified; I25.10 Atherosclerotic heart disease of native coronary artery without angina pectoris; I25.2 Old myocardial infarction; Z95.0 Presence of cardiac pacemaker; R06.02 Shortness of breath; D72.829 Elevated white blood cell count, unspecified; E11.9 Type 2 diabetes mellitus without complications; Z23 Encounter for immunization; Z79.82 Long term (current) use of aspirin; Z79.01 Long term (current) use of anticoagulants; Z87.891 Personal history of nicotine dependence
CPT/HCPCS: 43239; 45381; 45388; 45380; 36415; 36430; 80048; 80053; 83036; 83735; 85014; 85018; 85025; 85027; 85610; 85730; 86850; 86900; 86901; 88305; 88342; 90471; 90686; 93005; 96361; 96374; 99285; A9270; C9113; G0008; G0378; J2704; J7030; J7050; J7120; P9017

== ENCOUNTER 2020-07-06 10:56 | Outpatient (CLI) | payer MEDICARE, SELFPAY ==
[2020-07-06 11:37] LABS: Hematocrit 29.4 % (42.0-52.0); Hemoglobin 9.4 g/dL (14.0-18.0)
== END 2020-07-06 10:57 | disposition home or self-care (01) ==
LOC: ANHLAB 11:03
PROVIDERS: Visit Provider Physician Assistant
DX: D64.9 Anemia, unspecified (principal); K92.2 Gastrointestinal hemorrhage, unspecified
CPT/HCPCS: 36415; 85014; 85018

== ENCOUNTER 2020-11-21 13:57 | Outpatient (CLI) | payer MEDICARE, SELFPAY ==
--- NOTE | ~2020-11-21 | CT_ITS ---
EXAMINATION: CT chest abdomen pelvis w con DATE: 11/21/2020 18:48 INDICATION: Chronic lymphocytic leukemia TECHNIQUE: Transaxial computed tomographic images of the chest, abdomen, and pelvis were obtained aft er the administration of 100 cc of Omnipaque 350 intravenous contrast. The dose-length product (DLP) was 753.02 mGy-cm. Automated exposure control and iterative reconstruction technique were employed. COMPARISON: None FINDINGS: CHEST CT: The IV infiltrated during contrast administration resulting in no visible contrast. There is a small right pleural effusion. Dependent atelectasis is noted in the lower lobes. There is no pneumothorax. The heart size is normal. Calcified coronary artery atherosclerosis is noted. Calcified pulmonary nod ules and calcified mediastinal lymph nodes are consistent with old granulomatous disease. Mildly enla rged, noncalcified aorticopulmonary window lymph nodes measure up to 11 mm in short axis. A single le ad pacemaker of the left chest wall ends with its lead in the right ventricle. Cardiomegaly is noted. There are bridging osteophytes at multiple levels in the spine, consistent with diffuse idiopathic s keletal hyperostosis (DISH). ABDOMEN/PELVIS CT: Punctate calcifications in otherwise normal appearing liver and spleen likely represent healed granul omatous disease. The pancreas, gallbladder, and adrenal glands are normal. There is a 9 mm nonobstruc ting stone of the left kidney upper pole. The right kidney is unremarkable. There is calcified athero sclerosis of the aorta and many of the other arteries. Retroperitoneal lymph nodes measure up to 1.7 cm. There is also bilateral external iliac chain lymphadenopathy. A small volume of pelvic ascites is noted. Colonic diverticulosis is present without evidence of diverticulitis. There is no free intrap eritoneal gas or evidence of bowel obstruction. The appendix is normal. There is severe lumbar spondy losis. IMPRESSION: 1. Mediastinal, retroperitoneal, and pelvic lymphadenopathy, consistent with history of chronic lymph ocytic leukemia. 2. Small right pleural effusion. 3. Nonobstructing left nephrolithiasis. Reviewed, dictated and finalized at location [facility]. LTY I ON CALL MEDICAL ASSISTANT IMPRESSION: 1. Mediastinal, retroperitoneal, and pelvic lymphadenopathy, consistent with hi story of chronic lymphocytic leukemia. 2. Small right pleural effusion. 3. Nonobstructing left nephrolithiasis.
[2020-11-21 16:12] LABS: Estimated Glomerular Filt Rate 38
== END 2020-11-21 14:40 ==
PROVIDERS: PCP Internal Medicine; Visit Provider Internal Medicine Hematology & Oncology
DX: C91.10 Chronic lymphocytic leukemia of B-cell type not having achieved remission (principal); J90 Pleural effusion, not elsewhere classified; N20.0 Calculus of kidney
CPT/HCPCS: 71260; 74177; Q9967

== ENCOUNTER 2020-11-23 08:06 | Outpatient (CLI) | payer MEDICARE, SELFPAY ==
--- NOTE | ~2020-11-23 | CT_ITS ---
EXAMINATION: CT chest abdomen pelvis w con DATE: 11/23/2020 08:49 INDICATION: Chronic lymphocytic leukemia TECHNIQUE: Computed tomography (CT) of the chest, abdomen, and pelvis was performed with 100 cc Omnip aque 350 intravenous contrast. Automated exposure control and iterative reconstruction technique were employed. Exam dose: 536.30 mGy-cm total exam DLP. COMPARISON: November 21, 2020 CT chest abdomen pelvis (IV infiltrated) FINDINGS: CHEST CT: Left-sided pacemaker device with lead and right ventricular apex. There is small right pleural effusi on. There is dependent right lower lobe atelectasis and mild focal peripheral lateral segment middle lobe atelectasis. There is mild bilateral apical scarring. There is a prominent bulla in the posterior mid mid left lung with adjacent scarring. Mild emphysemat ous changes of the lungs are suggested. There is old pulmonary granulomatous disease as well as calci fied hepatic and splenic granulomas. Normal size and homogeneous enhancement of the thyroid gland. There are calcified aortopulmonary window, precarinal, subcarinal and bilateral hilar lymph nodes con sistent with old pulmonary granulomatous disease. There are some nonspecific shotty nonenlarged super ior mediastinal, prevascular and right paratracheal lymph nodes. Up to 10.2 x 11 mm noncalcified aort opulmonary window nodes. Thoracic aortic and great vessel and coronary artery calcifications. No thoracic aortic aneurysm or d issection. Normal heart size. No pericardial effusion. ABDOMEN/PELVIS CT: There is surface nodularity of the liver suggesting cirrhosis. No hepatic space occupying mass lesion is evident. Splenic size is within normal range. The gallbladder is present and appears unremarkable . No bile duct or pancreatic duct dilatation. No pancreatic mass lesion or calcification. Normal morphology of the adrenal glands. There is bilateral renal atrophy. 7 x 8.6 x 9.7 mm upper pole left renal nonobstructing calculus with attenuation of approximately 1370 Hounsfield units. 6.4 mm mid left renal cyst. 6 mm lower pole left renal cyst. There is atherosclerotic calcification of the abdominal aorta and origins of the celiac and renal art eries. No abdominal aortic calcification. 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 There is lymphadenopathy in the region of the tc hepatis. There are multiple shotty lymph nodes at the splenic hilus. There is aortocaval and periaortic lymphadenopathy, periaortic lymph nodes measuring up to 17.3 x 17. 3 mm. There is mild bilateral common and to a greater extent external iliac lymphadenopathy. Prostate enlargement and mild calcification. The urinary bladder is unremarkable. Normal appendix. There is diverticulosis of left and right colon; no CT evidence of diverticulitis. No bowel obstructi on, bowel wall thickening, pneumatosis or intraperitoneal free air. Degenerative changes of the cervical, thoracic and lumbar spine. No suspicious osteolytic or osteobl astic lesions. 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 Reviewed, dictated and finalized at location [facility]. Electronically signed by Blair Morelos
== END 2020-11-23 08:07 | disposition home or self-care (01) ==
PROVIDERS: PCP Internal Medicine; Visit Provider Internal Medicine Hematology & Oncology
DX: C91.10 Chronic lymphocytic leukemia of B-cell type not having achieved remission (principal); J90 Pleural effusion, not elsewhere classified; N28.1 Cyst of kidney, acquired; K57.30 Diverticulosis of large intestine without perforation or abscess without bleeding; N40.1 Benign prostatic hyperplasia with lower urinary tract symptoms; N20.0 Calculus of kidney
CPT/HCPCS: 71260; 74177; Q9967

== ENCOUNTER → 2020-12-01 00:25 | Outpatient (CLI) | payer MEDICARE, SELFPAY ==
[2020-12-01 17:47] LABS: SARS-CoV-2 RNA PCR Negative
== END ==
PROVIDERS: Visit Provider Surgery
DX: Z01.812 Encounter for preprocedural laboratory examination (principal); Z20.822 Contact with and (suspected) exposure to COVID-19
CPT/HCPCS: C9803; U0003; U0005

== ENCOUNTER → 2020-12-05 00:38 | Outpatient (CLI) | payer MEDICARE, SELFPAY ==
[2020-12-05 19:08] LABS: SARS-CoV-2 RNA PCR Negative
== END ==
PROVIDERS: Visit Provider Surgery
DX: Z01.812 Encounter for preprocedural laboratory examination (principal); Z20.822 Contact with and (suspected) exposure to COVID-19
CPT/HCPCS: C9803; U0003; U0005

== ENCOUNTER 2020-12-08 01:09 | Day surgery (SDC) | payer MEDICARE, SELFPAY ==
[2020-11-30 15:10] VITALS: BMI 23.8
--- NOTE | 2020-12-04 09:34 | PC.NURSE ---
SPOKE WITH PT'S SILVIO. NO CHANGE IN HEALTH HX SINCE LAST INTERVIEW ON 11/30/20 . STATES LAST TOOK WARFARIN ON 12/02/[address] DIETZ
--- NOTE | 2020-12-07 13:35 | WPDANESEPPF ---
Anes - Initial Pre Proc Eval Procedure: Operation Date: 12/08/20 11:00 Proposed Procedures p Insertion Anival Cath - Omar Pierce MD Date/Time: 12/07/20 13:35 Surgeon: Omar Pierce MD Pre Op Diagnosis: Chronic Lymphocytic Leukemia Patient Data Age: 85 Gender: M Height: 1.7 m Weight: 69 kg Allergies Allergy/AdvReac Type Severity Reaction Status Date / Time Penicillins Allergy Hives Verified 12/04/20 09:44 Home Medications Medication Instructions Recorded Confirmed Type aspirin 81 mg PO DAILY 06/26/20 12/04/20 History atorvastatin 10 mg PO DAILY 06/26/20 12/04/20 History carvedilol 6.25 mg PO Q12H 06/26/20 12/04/20 History cholecalciferol (vitamin D3) 25 mcg PO DAILY 06/26/20 12/04/20 History [Vitamin D3] isosorbide mononitrate 30 mg PO QAM 06/26/20 12/04/20 History mecobalamin (vitamin B12) 1,000 mcg PO DAILY 06/26/20 12/04/20 History warfarin 4 mg PO QTUTHSA 06/26/20 12/04/20 History warfarin 2 mg PO QMWFSU 06/28/20 12/04/20 History Patient hx anesthesia problems: none Family hx anesthesia problems: none PMFSH Past Medical History Medical History Acute [place] Asbestos exposure Atrial fibrillation AVM (arteriovenous malformation) of colon CAD (coronary artery disease) Chronic shortness of breath CLL (chronic lymphocytic leukemia) Current use of long term care administrator anticoagulation Diet-controlled diabetes mellitus Erosive gastritis HTN (hypertension) Hypercholesterolemia Rectal bleeding Renal failure Skin cancer Surgical History Surgical History AICD (automatic cardioverter/defibrillator) present History of local excision of skin lesion History of permanent cardiac pacemaker placement History of thoracentesis Family History Family History Father Pneumonia Social History Social History Social History: Patient lives at home with his , Thee, and his son. He wishes his to be his surrogate MDM. He wishes to be a full code. He sees Dr. Rock as his PCP and Dr. 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 Smoking status: Former smoker Tobacco type: pipe, cigars and smokeless tobacco Smokeless tobacco user: chewing tobacco Second hand tobacco smoke exposure: No Smoking end date: 10/06/73 Additional smoking assessment comments: SMOKED PIPE AND CIGARS PRIOR 1974 Alcohol intake: never Alcohol use details: NONE IN 50 YEARS Substance use: never Substance use type: does not use Living arrangements: with family Additional living arrangements comments: Spiritual care concerns: No Anes - Eval Final PreProcedure Day of Procedure 12/07/20 13:35 Patient weight: obese Heart: regular rate and rhythm Lungs: clear to auscultation and normal air movement Airway: Mallampati scale class II Neurological: alert and oriented Last oral intake: >/= 8 hours ASA classification: IV Emergent: no Anesthetic plan: proceed Anesthesia type and monitoring: general GIVS Informed Consent: The patient's anesthetic plan and its attendant risks and benefits were discussed with the patient/family/POA. Questions were solicited and answers provided to the satisfaction of the patient/family/POA.
[2020-12-08] VITALS (7 sets, daily range): BP systolic 105–128; BP diastolic 65–76; PULSE 52–88; RESP 20; TEMP 36.3; O2SAT 99
--- NOTE | ~2020-12-08 | XR_ITS ---
EXAMINATION: XR chest port-a-cath/central DATE: 12/08/2020 12:30 INDICATION: Port catheter insertion TECHNIQUE: frontal view of the chest was obtained. COMPARISON: Chest radiograph dated chest CT dated 11/23/2020 FINDINGS: Right internal jugular central venous port catheter with distal tip at the caudal superior vena cava. Opacities at the right mid and lower lung zone with blunting at the costophrenic angle consistent wi th small right pleural effusion with associated atelectasis and/or pneumonia in the right lower lung zone. Calcified nodule at the left costophrenic angle and calcified bilateral hilar and mediastinal l ymph nodes consistent with old granulomatous disease. No pneumothorax. The cardiomediastinal silhouet te is normal. Single lead pacemaker/AICD seen with the tip projecting near the apex of the right vent ricle. IMPRESSION: 1. Right internal jugular central venous port catheter tip at the caudal superior vena cava. 2. No significant change in small right pleural effusion with atelectasis and/or pneumonia in the rig ht lower lung zone. Reviewed, dictated and finalized at location B. WARE QUALITY ASSURANCE ANALYST IMPRESSION: 1. Right internal jugular central venous port catheter tip at the caudal superi or vena cava. 2. No significant change in small right pleural effusion with atelectasis and/o r pneumonia in the right lower lung zone.
--- NOTE | ~2020-12-08 | XR_ITS ---
EXAMINATION: XR fl guide central line place DATE: 12/08/2020 11:52 INDICATION: Port catheter insertion TECHNIQUE: Single fluoroscopic frontal image of the antral chest was obtained during procedure perfor med by Dr. Pierce. Radiologist was not present for the imaging or procedure. The amount of fluorosco py time used during this procedure was 1.1 minutes. COMPARISON: CT dated 11/23/2020 FINDINGS: Interval placement of a right internal jugular central venous port catheter with distal tip at the ca udal superior vena cava. Single lead cardiac pacemaker/AICD extends into the right ventricle with dis shreyas tip beyond the margin of the [id number]. Visualized portions of the lungs are clear. No pneumo thorax. Heart and mediastinal silhouette is unremarkable. IMPRESSION: 1. Right internal jugular central venous port catheter tip at the caudal superior vena cava. See proc edure note for further detail. Reviewed, dictated and finalized at location B. ENT LIAISON OFFICER IMPRESSION: 1. Right internal jugular central venous port catheter tip at the caudal superi or vena cava. See procedure note for further detail.
--- NOTE | 2020-12-08 07:44 | PM.HPGS ---
History of Present Illness History of Present Illness Consent: Risks, benefits, and alternatives of placement of a Port-A-Cath to using chemotherapy have been discussed and questions answered. Patient agrees to proceed with procedure. Chief complaint: Chronic Lymphocytic Leukemia Narrative: Trey Sargent is a 85 year old male his a pleasant gentleman who was recently diagnosed with CLL. Dr. Mary adkins is planning to proceed with chemotherapy. patient has been having night sweats fevers and extreme fatigue. After consulting with Dr. Mary adkins they are planning to proceed with further treatment. Patient has had a CT scan showing lymphadenopathy in both the mediastinum and the retroperitoneum. There is no splenomegaly. Signs of possible liver cirrhosis or present. Patient wished to proceed with placement of a port for treatment of his problem. On recent labs patient was also noted to be anemic. Dr. Mary adkins feels this is either on the basis of the CLL or possibly chronic kidney disease. Patient has been placed on Procrit biweekly. Review of Systems Constitutional: Constitutional: Reports difficulty sleeping, Reports fatigue, Reports malaise and Reports night sweats Eyes: Eyes: Denies change in vision and Denies loss of vision ENT: Reports Normal hearing present, Denies change in voice, Denies dizziness, Denies hoarseness and Denies sore throat Cardiovascular: Cardiovascular: Denies chest pain, Denies leg edema and Denies dyspnea Respiratory: Respiratory: Denies cough, Denies dyspnea and Denies wheezing Gastrointestinal: Gastrointestinal: Denies hematochezia, Denies change in bowel habits and Denies heartburn Genitourinary: Genitourinary: Denies urinary frequency and Denies urinary incontinence Neurologic: Reports Normal hearing present, Denies confusion, Denies dizziness, Denies loss of vision, Denies memory loss and Denies seizure-like activity Psychiatric: Psychiatric: Denies confusion, Denies depression and Denies memory loss Endocrine: Endocrine: Denies cold intolerance and Reports fatigue Hematologic/Lymphatic: Hematologic/Lymphatic: Denies easy bleeding and Denies easy bruising Allergic/Immunologic: Allergic/Immunologic: Denies wheezing PMFSH Past Medical History Medical History Acute [place] Asbestos exposure Atrial fibrillation AVM (arteriovenous malformation) of colon CAD (coronary artery disease) Chronic shortness of breath CLL (chronic lymphocytic leukemia) 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 He wishes his to be his surrogate MDM. He wishes to be a full code. He sees Dr. Rock as his PCP and Dr. 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 Smoking status: Former smoker Tobacco type: pipe, cigars and smokeless tobacco Smokeless tobacco user: chewing tobacco Second hand tobacco smoke exposure: No Smoking end date: 10/06/73 Additional smoking assessment comments: SMOKED PIPE AND CIGARS PRIOR 1974 Alcohol intake: never Alcohol use details: NONE IN 50 YEARS Substance use: never Substance use type: does not use Living arrangements: with family Additional living arrangements comments: Spiritual care concerns: No Meds Home Medications and Allergies Home Medications Medication Instructio
[2020-12-08] MEDS: KETOROLAC 15 MG/ML VIAL (*BKC) IV PUSH (09:45)
[2020-12-08] MEDS: LACTATED RINGERS 1,000 ML 30 ML IV CONT (10:00)
[2020-12-08 10:08] LABS: Hematocrit 31.6 % (42.0-52.0); Hemoglobin 9.6 g/dL (14.0-18.0); Mean Corpuscular HGB Conc 30.4 g/dl (32-36); Mean Corpuscular Hemoglobin 31.5 pg (26-34); Mean Corpuscular Volume 103.6 fl (80-100); Mean Platelet Volume 9.3 fl (7.4-10.4); Platelet Count Result 146 k/mm3 (150-375); Red Blood Count 3.05 M/mm3 (4.6-6.20); White Blood Count 20.2 K/mm3 (4.5-10.0)
[2020-12-08 10:20] LABS: INR 1.1; Prothrombin Time 14.7 Seconds (11.1-14.7)
--- NOTE | 2020-12-08 11:01 | WPDHPUPDATE1 ---
History and Physical Update Update Date/Time: 12/08/20 11:01 History and Physical has been reviewed, including an updated exam of the patient. There are NO changes in the patient's condition. Risks, benefits, and alternatives of US guided placement of a Anival-cath have been discussed and questions answered. Patient agrees to proceed with procedure.
[2020-12-08] MEDS: CLINDAMYCIN 900 MG/D5W 50 ML 900 MG/50 ML PIGGYBACK 50 MG IVPB (11:07)
[2020-12-08] MEDS: BUPIVACAINE/EPINEPHRINE 0.5% 30 ML VIAL INFILTRATE (11:49)
[2020-12-08] MEDS: HEPARIN SODIUM 5,000 UNITS/ML VIAL 5000 UNITS IRRIGATION (11:52)
--- NOTE | 2020-12-08 12:09 | PM.PROC ---
Procedure Note - Detailed Date of procedure: 12/08/20 Pre-op diagnosis: Chronic Lymphocytic Leukemia Procedure performed: US guided placement of Port-A-Cath Description of procedure: Patient was seen and marked in the pre-op area prior to coming to the OR. Patient was brought to the operating room. He was placed supine on the operating table and general IV sedation was induced. The nurse is/it project manager provided oxygen and IV sedation. Patient's head was carefully turned to the left side while in the supine position and the patient's entire neck and anterior chest on both sides was prepped and draped in the usual sterile fashion. Following this the appropriate time-out was completed confirming procedure and patient. We confirmed that all the needed equipment was present in the room. Following this the ultrasound probe was draped into the field and using the probe we carefully identified the carotid artery and jugular vein on the right neck. I marked the skin directly over the Rt. internal jugular vein. Following this, using the continuous ultrasound guidance, a Cook needle was placed through the skin into this vein. I then was able to draw back good dark blood. Once this was completed a guidewire using a J-tip was advanced through the needle and then the needle and the guidewire cover were withdrawn. C-arm fluoroscopy was used to confirm that the guidewire was nicely in the venous system. Once this was confirmed with the C - arm I preceded on by making the pocket for the port on the patient's anterior right chest approximately 3 centimeters below the clavicle overlying the chest wall. Local anesthetic was infiltrated into the skin where there was a transverse incision marked out. Incision was made and we made a pocket inferior to the incision with just a little dissection superior. The low-profile port was tried in the pocket and seemed to fit well. Following this the catheter which had been placed on a tunneling device was tunneled from the port site on the anterior right chest up to the right neck where a small incision had been made with an #11 blade knife. Then the catheter was pulled through so that we would have 15 centimeters to put into the central venous system once the dilation took place. Following this we placed the dilator and sheath over the guidewire in the jugular vein and carefully dilated the tract into the central venous system. The guidewire and dilator were then removed, carefully covering the end of the sheath to prevent air embolus. The end of the catheter which had been cut off straight across and the tip checked was then inserted into the sheath and into the neck. I then carefully pulled the 2 arms of the tear-away sheath away as the senior office support assistant sosa held the catheter in position with a DeBakey forceps. Following this we checked the position of the catheter with C-arm fluoroscopy confirming that the tip seemed to be in the distal superior vena cava near the junction with the right atrium. I felt that it was in good position and so the rest of the catheter was pulled down toward the feet into the port site. We then measured to the appropriate position to cut the catheter to attach it to the port stem. Then the connector sealing device for the catheter port was placed onto the catheter and then the catheter cut to the appropriate length and inserted onto the stem of the port. Then the connector was advanced onto the stem over the catheter sealing it to the port. A single 3- 0 Prolene suture was also used during this to suture the connector to the port and to the underlying musculature. Following this at one other site the port was sutured to the underlying musculature with the 3-0 Proline. Both prior to connecting the catheter to the port and then using a straight Burnett needle following this connection, the port was aspirated of good dark blood and flushed with heparinized saline to keep the catheter from having any air in it and to confirm that
== END 2020-12-08 15:25 | disposition home or self-care (01) ==
PROVIDERS: PCP Internal Medicine; Visit Provider Surgery
PROC: (CPT 36561; principal; 2020-12-08 11:00)
DX: C91.10 Chronic lymphocytic leukemia of B-cell type not having achieved remission (principal); I48.91 Unspecified atrial fibrillation; I25.10 Atherosclerotic heart disease of native coronary artery without angina pectoris; I10 Essential (primary) hypertension; I25.2 Old myocardial infarction; E11.9 Type 2 diabetes mellitus without complications; E78.00 Pure hypercholesterolemia, unspecified; Z79.01 Long term (current) use of anticoagulants; Z79.82 Long term (current) use of aspirin; Z95.810 Presence of automatic (implantable) cardiac defibrillator; Z87.891 Personal history of nicotine dependence
CPT/HCPCS: 36561; 36415; 76937; 77001; 85027; 85610; C1788; J1644; J1885; J2704; J3010; J7030; J7120

== ENCOUNTER 2021-01-19 23:28 | Inpatient (IN) | payer MEDICARE, SELFPAY ==
--- NOTE | ~2021-01-19 | CT_ITS ---
EXAMINATION: CTA chest PE abdomen pel DATE: 01/20/2021 00:55 INDICATION: Shortness of breath TECHNIQUE: Computed tomography (CT) pulmonary angiogram of the chest was performed with 100 mL Omnipa que-350 intravenous contrast. Additional 3D reconstructions utilizing coronal maximum intensity proje ction (MIP) were performed. CT of the abdomen and pelvis was performed with intravenous contrast util izing the same contrast bolus following a short delay. Automated exposure control and iterative recon struction technique were employed. The dose-length product was 876.01 mGy-cm. COMPARISON: 11/23/2020 FINDINGS: Chest: Excellent contrast opacification of the pulmonary arteries. There is mild streak artifact from dense contrast in the superior vena cava and right atrium. Mild to moderate basilar predominant respiratory motion artifact mildly decreases sensitivity in some of the smaller subsegmental pulmonary arteries. No pulmonary embolism. Small right pleural effusion with compressive atelectasis in the posterior ri ght lower lobe. Scattered lower lung subsegmental groundglass opacities with intervening smooth septa l line thickening in the lingula, right middle and bilateral lower lobes consistent with mild pulmona ry edema versus less likely pneumonia. There are few scattered calcified pulmonary nodules along with calcified bilateral hilar and mediastinal lymph nodes consistent with old granulomatous disease. Car diomegaly. Cardiac pacemaker/defibrillator lead tip near the apex of the right ventricle. Atheroscler otic coronary artery calcifications. Thoracic aorta is normal in caliber with small ductus diverticul um. No interval change in a few mildly prominent mediastinal lymph nodes. No new or enlarging thoraci c lymphadenopathy. There are bridging osteophytes at multiple levels in the spine, consistent with di ffuse idiopathic skeletal hyperostosis (DISH). Abdomen/pelvis: Scattered hepatic and splenic calcifications consistent with old granulomatous disease. Subtle surfac e nodularity liver raising concern for cirrhosis. Decompressed gallbladder is normal. Pancreas, bilat eral adrenal glands are normal. Mild bilateral renal cortical atrophy with several bilateral subcenti meter hypodense renal cysts. Approximately 8 mm nonobstructing stone in an upper pole calyx of the le ft kidney. No hydronephrosis. Mild prostatomegaly which impresses upon the base of the normal-appeari ng bladder. There is mild scattered colonic diverticulosis without adjacent inflammatory change to coreas ggest diverticulitis. Small bowel and appendix are normal. No free intraperitoneal gas or fluid. No p athologically enlarged abdominal or pelvic lymphadenopathy. Small fat-containing left inguinal hernia . No free intraperitoneal gas or fluid. Interval decrease in size of several previously mildly enlarg ed para-aortic lymph nodes. No other pathologically enlarged or enlarging abdominal or pelvic lymphad enopathy. There is calcified atherosclerosis of the aorta and many of the other arteries. 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 Moderate thoracic spondylosis. IMPRESSION: 1. No pulmonary embolus. 2. Likely congestive heart failure with cardiomegaly, mild pulmonary edema at the lung bases and smal l right pleural effusion with secondary dependent atelectasis in the right lower lobe. 3. Nonobstructing 8 mm left renal stone. 4. Liver surface nodularity suspicious for cirrhosis. 5. Mild diverticulosis. 6. Small fat-containing left inguinal hernia. 7. Mild prostatomegaly. 8. Unchanged mild mediastinal and improving mild retroperitoneal lymphadenopathy may be either reacti ve or related to known history of chronic lymphocytic leukemia. 9. Unchanged mild aneurysmal d
--- NOTE | ~2021-01-19 | CT_ITS ---
EXAMINATION: CT chest abdomen pelvis wo con DATE: 01/20/2021 02:18 INDICATION: Shortness of breath and vomiting TECHNIQUE: Computed tomography (CT) of the chest, abdomen, and pelvis was performed without intraveno us contrast. Automated exposure control and iterative reconstruction technique were employed. The dos e-length product was 571.59 mGy-cm. COMPARISON: Contrast-enhanced CT dated 01/20/2021 FINDINGS: CHEST CT: Right internal jugular central venous port catheter with distal tip at the superior cavoatrial juncti on. There is also a left pectoral single lead cardiac pacemaker/AICD with lead tip at the apex of the right ventricle. Cardiomegaly. Atherosclerotic coronary artery calcification is. No pericardial effu kelby. No interval change in groundglass opacities with smooth septal line thickening in the bilateral lower lung zones consistent with mild pulmonary edema. Small right pleural effusion with peripheral round atelectasis with volume loss and architectural distortion in the posterior right lower lobe and posterolateral right middle lobe. There are few scattered small calcified pulmonary nodules along wi th calcified mediastinal and bilateral hilar lymph nodes consistent with old granulomatous disease. N o interval change in a few mildly prominent mediastinal lymph nodes. Thoracic aorta is normal in khadra russell with small ductus diverticulum. There are bridging osteophytes at multiple levels in the spine, c onsistent with diffuse idiopathic skeletal hyperostosis (DISH). ABDOMEN/PELVIS CT: Scattered hepatic and splenic calcific lesion consistent with old granulomatous disease. Several hepa tic surface nodularity suspicious for cirrhosis. Pancreas and bilateral adrenal glands are normal. Th ere is excreted contrast in the bilateral renal collecting systems and in the latter from the earlier contrast-enhanced CT. This partially obscures an 8 mm nonobstructing stone in the upper pole the lef t kidney. No enhancing a few scattered colonic diverticula without adjacent inflammatory change to coreas ggest diverticulitis. Small bowel and appendix are normal. Mild prostatomegaly. Small fat-containing left inguinal hernia. Persistent mild retroperitoneal lymphadenopathy improved from earlier CT dated 11/23/20. No free intraperitoneal gas or fluid. Moderate lumbar spondylosis. IMPRESSION: 1. Congestive heart failure with cardiomegaly, mild bibasilar pulmonary edema and small right pleural effusion. 2. Peripheral consolidation with volume loss and architectural distortion consistent with round atele ctasis in the right lower and middle lobes. 3. Unchanged mild mediastinal and improvement since 11/23/2020 and mild retroperitoneal lymphadenopath y which could be either reactive or related to improvement in known chronic lymphocytic leukemia. 4. Possible cirrhosis. 5. Mild diverticulosis. 6. Mild prostatomegaly. 7. Small fat-containing left inguinal hernia. Reviewed, dictated and finalized at location A. IMPRESSION: 1. Congestive heart failure with cardiomegaly, mild bibasilar pulmonary edema a nd small right pleural effusion. 2. Peripheral consolidation with volume loss and architectural distortion consi stent with round atelectasis in the right lower and middle lobes. 3. Unchanged mild mediastinal and improvement since 11/23/2020 and mild retroper itoneal lymphadenopathy which could be either reactive or related to improvemen t in known chronic lymphocytic leukemia. 4. Possible cirrhosis. 5. Mild diverticulosis. 6. Mild prostatomegaly. 7. Small fat-containing left inguinal hernia.
--- NOTE | ~2021-01-19 | XR_ITS ---
EXAMINATION: XR chest 1V DATE: 01/20/2021 00:45 INDICATION: Shortness of breath TECHNIQUE: frontal view of the chest was obtained. COMPARISON: Chest radiograph dated 12/08/[address] dated 01/20/2021 FINDINGS: Gradient of hazy airspace opacity in the right mid to lower lung zone with blunting at the costophren ic angle consistent with small right pleural effusion. Tiny left pleural effusion with blunting at th e cardiophrenic and costophrenic angles. Scattered mild patchy and linear opacities in the bilateral mid and lower lung zones consistent with atelectasis and likely mild pulmonary edema. No pneumothorax . A few bilateral small calcified pulmonary nodules and calcified mediastinal lymph nodes consistent with old granulomatous disease. Mild cardiomegaly. Single lead pacemaker/AICD seen with lead tip proj ecting over the region of the apex of the right ventricle. Right internal jugular central venous port catheter with distal tip in the midsuperior vena cava.. IMPRESSION: 1. Opacities in the bilateral mid and lower lung zones likely combination of congestive heart failure related mild pulmonary edema, atelectasis and small bilateral pleural effusions, right greater than left. Pneumonia not excludable. 2. Cardiomegaly. Reviewed, dictated and finalized at location A. IMPRESSION: 1. Opacities in the bilateral mid and lower lung zones likely combination of co ngestive heart failure related mild pulmonary edema, atelectasis and small bila teral pleural effusions, right greater than left. Pneumonia not excludable. 2. Cardiomegaly.
[2021-01-19 23:33] VITALS: BP 156/100; PULSE 135; RESP 26; TEMP 36.7; O2SAT 94
[2021-01-19 23:38] VITALS: O2SAT 97
--- NOTE | 2021-01-19 23:42 | ECG_ITS ---
Measurements Intervals [place] Rate: 123 P: FL: 0 QRS: 43 QRSD: 101 T: 11 QT: 292 QTc: 418 Interpretive Statements ECTOPIC ATRIAL TACHYCARDIA BORDERLINE R WAVE PROGRESSION, ANTERIOR LEADS BORDERLINE ST-T WAVE ABNORMALITY- INF/LAT LEADS BASELINE ARTIFACT- I, II, III, AVR, AVF, V4-V6 ABNORMAL ECG Electronically Signed On 01-20-2021 8:41:26 CDT by Dante Soriano D.O.
[2021-01-19 23:43] VITALS: PULSE 114; RESP 25
[2021-01-20] VITALS (50 sets, daily range): BP systolic 99–146; BP diastolic 55–92; PULSE 60–124; RESP 13–25; TEMP 35.7–36.7; O2SAT 92–100; BMI 24.6
[2021-01-20] MEDS: ALBUTEROL SULFATE NEB 2.5 MG/0.5 ML INH 5 MG INHALATION (00:02)
[2021-01-20] MEDS: IPRATROPIUM BR 0.02% INH SOLN 0.5 MG/2.5 ML VIAL INHALATION (00:02)
--- NOTE | 2021-01-20 00:05 | PC.NURSE ---
Attempting IV access. This nurse attempted twice, and another RN attempting IV.
[2021-01-20 00:12] LABS: Alveolar/Arterial O2 Gradient 87.7 mmHg; Base Excess ABG -6.3 mEq/l (+/-2.0); Fractional Inspired Oxygen 28 %; HCO3 ABG 17.9 mEq/l (22.0-26.0); Oxygen Content ABG 13.6 %vol (16.0-22.0); Oxyhemoglobin 92.6 % THb (90.0-100.0); PCO2 ABG 31.2 mmHg (35.0-45.0); PO2 ABG 75.1 mmHg (80.0-100.0); PO2 FiO2 Ratio Arterial Blood 2.68 %; Total Hemoglobin 10.4 g/dL (12.0-18.0); pH ABG 7.377 (7.350-7.450)
[2021-01-20 00:13] LABS: Device NASAL CANNULA; Modified Allen's Test Pass; Site Drawn LEFT RADIAL
[2021-01-20] MEDS: PROCHLORPERAZINE EDISYLATE 10 MG/2 ML VIAL IV PUSH (00:13)
[2021-01-20 00:26] LABS: Basophils Percent Auto 0.4 % (0.2-1.2); Hematocrit 30.4 % (42.0-52.0); Hemoglobin 10.1 g/dL (14.0-18.0); Immature Granulocyte Absolute 0.09 K/mm3 (0.00-0.031); Immature Granulocyte Percent A 1.7 % (0-0.5); Lymphocytes Absolute Auto 1.34 K/mm3 (0.9-3.2); Lymphocytes Percent Auto 25.2 % (18.3-44.2); Mean Corpuscular HGB Conc 33.2 g/dl (32-36); Mean Corpuscular Volume 102.4 fl (80-100); Mean Platelet Volume 9.5 fl (7.4-10.4); Monocytes Absolute Auto 0.3 K/mm3 (0.1-0.6); Monocytes Percent Auto 6.2 % (2.6-8.5); Neutrophils Absolute Auto 3.5 K/mm3 (1.3-6.7); Neutrophils Percent Auto 66.5 % (45.5-73.1); Platelet Count Result 146 k/mm3 (150-375); Red Blood Count 2.97 M/mm3 (4.6-6.20); Red Cell Distribution Width 18.2 % (11.5-14.5); White Blood Count 5.3 K/mm3 (4.5-10.0)
[2021-01-20 00:38] LABS: INR 3.3; Prothrombin Time 34.2 Seconds (11.1-14.7)
[2021-01-20 00:49] LABS: Alanine Aminotransferase 36 U/L (4-50); Albumin Level 3.7 g/dL (3.5-5.1); Alkaline Phosphatase 153 U/L (38-126); Anion Gap 9 mmol/L (8-16); Aspartate Amino Transferase 60 U/L (17-59); Bilirubin,Total 0.6 mg/dL (0.2-1.3); Blood Urea Nitrogen 41 mg/dL (9-20); Calcium 8.3 mg/dL (8.4-10.2); Carbon Dioxide 19 mmol/L (22-30); Chloride 106 mmol/L (98-107); Estimated Glomerular Filt Rate 32; Glucose 315 mg/dL (75-110); Magnesium 2.1 mg/dL (1.6-2.3); Sodium 134 mmol/L (137-145)
[2021-01-20 00:52] LABS: Atypical Lymphocytes Present; Platelet Estimate Adequate (Adequate)
[2021-01-20 00:53] LABS: Large Platelets Present; Ovalocytes 1+ (NORMAL)
[2021-01-20 01:03] LABS: NT Pro B Type Natriuretic Pept 9530 PG/ML (5-100); Troponin I 0.407 ng/mL (0.000-0.034)
[2021-01-20] MEDS: ONDANSETRON INJ 4 MG/2 ML VIAL 8 MG IV PUSH (01:16)
[2021-01-20] MEDS: MORPHINE SULFATE (*CRX) 4 MG/ML INJ 2 MG IV PUSH (01:30)
[2021-01-20] MEDS: NITROGLYCERIN SL 0.4 MG TABLET SUBLINGUAL (01:31)
[2021-01-20] MEDS: ASPIRIN 81 MG CHEWABLE TABLET 324 MG PO (02:20)
[2021-01-20 02:54] LABS: Lactic Acid Reflex 2.7 mmol/L (0.7-2.1)
--- NOTE | 2021-01-20 02:55 | ED.GENADULT ---
HPI - General Adult General Chief complaint: Shortness of Breath/Dyspnea Stated complaint: SOB Time Seen by Provider: 01/19/21 23:37 History of Present Illness HPI narrative: Patient 85-year-old gentleman who presents the emergency room with chief complaint of shortness of breath. Patient has history of CLL has been undergoing chemotherapy with his last dose today. Patient states he was at home started coughing and then became extremely short of breath patient also reports he had some tightness in the left side of his chest. Patient states that not improved by anything nor is it worsened by anything. The patient denies fever denies recent Covid infection reports that he has not had a productive cough with this is been dry feels like he wants to cough something up. Related Data Home Medications Medication Instructions Recorded Confirmed aspirin 81 mg PO DAILY 06/26/20 01/19/21 atorvastatin 10 mg PO DAILY 06/26/20 01/19/21 cholecalciferol (vitamin D3) 25 mcg PO DAILY 06/26/20 01/19/21 [Vitamin D3] isosorbide mononitrate 30 mg PO QAM 06/26/20 01/19/21 mecobalamin (vitamin B12) 1,000 mcg PO DAILY 06/26/20 01/19/21 warfarin 2 mg PO DAILY 06/28/20 01/19/21 carvedilol 12.5 mg PO BID 12/20/20 01/19/21 allopurinol 100 mg PO DAILY 12/21/20 01/19/21 acyclovir 400 mg PO TID 01/19/21 01/19/21 sulfamethoxazole-trimethoprim 1 tablet PO Q12H 01/19/21 01/19/21 [Bactrim DS] Allergies Allergy/AdvReac Type Severity Reaction Status Date / Time Penicillins Allergy Hives Verified 01/19/21 23:41 Review of Systems Review of Systems: Narrative: A 10 system review of systems was completed on the patient and is negative except for what is stated in the HPI. Nursing and ancillary documentation was reviewed. [facility] Past Medical History Medical History Acute [place] Asbestos exposure Atrial fibrillation AVM (arteriovenous malformation) of colon CAD (coronary artery disease) Chronic shortness of breath CLL (chronic lymphocytic leukemia) (Unknown) Current use of intermission coordinator anticoagulation Diet-controlled diabetes mellitus Erosive gastritis HTN (hypertension) Hypercholesterolemia Rectal bleeding Renal failure Skin cancer Surgical History Surgical History AICD (automatic cardioverter/defibrillator) present History of local excision of skin lesion History of permanent cardiac pacemaker placement History of thoracentesis Family History Family History Father Pneumonia Social History Social History Social History: Patient lives at home with his , Thee, and his son. He wishes his to be his surrogate MDM. He wishes to be a full code. He sees Dr. Rock as his PCP and Dr. Isaac as his Export Agent. Smoking status: Former smoker Tobacco type: pipe and cigars Smokeless tobacco user: chewing tobacco Second hand tobacco smoke exposure: No Smoking end date: 10/06/73 Additional smoking assessment comments: SMOKED PIPE AND CIGARS PRIOR 1974 Alcohol intake: never Substance use: never Substance use type: does not use Additional living arrangements comments: Gender identity (if verbalized by the patient): Male Spiritual care concerns: No Exam Narrative: Exam Narrative: GENERAL: Well-appearing, well-nourished, and in no acute distress. HEAD: Normocephalic, atraumatic. EYES: PERRLA and EOMI. ENT: Nares clear, no rhinorrhea or epistaxis. Mucous membranes moist. NECK: Supple. CHEST: Clear to auscultation. No respiratory distress. HEART: Regular rate and rhythm. No murmur heard. Normal peripheral pulses. ABDOMEN: Soft, nontender, nondistended, normal active bowel sounds. EXTREMITIES: Normal range of motion. No edema. SKIN: Warm, dry, no rash. NEURO: No focal d
[2021-01-20] MEDS: SODIUM CHLORIDE 0.9% IV 1,000 ML 500 ML IV CONT (04:15)
--- NOTE | 2021-01-20 04:52 | ADMGEN ---
This patient, Trey Sargent, was admitted to IMU Room 204-01 at 0420. Patient/family oriented to hospital policies and general routines including ID bracelet, bed and alarms, visiting hours, pain management, procedures, bathroom and other care routines, personal items, smoking policy, room service/diet, and visiting hours. Information on how to activate the Rapid Response Team has been discussed. Patient/Family are encouraged to report perceived risks to care and to ask questions if they do not understand what they are told or what they should do.
[2021-01-20 05:42] LABS: Reflex Lactic Acid Yes or No Add Lactic
[2021-01-20] MEDS: SODIUM CHLORIDE 0.9% IV 1,000 ML 100 ML IV CONT (06:46)
[2021-01-20 07:04] LABS: Lactic Acid 1.7 mmol/L (0.7-2.1)
[2021-01-20 07:15] LABS: Add Urine Microscopic? YES; Appearance Urine Clear (Clear); Bilirubin Urine Negative (Negative); Blood Urine Negative (Negative); Color Urine Yellow (Yellow); Glucose Urine UA 3+ mg/dL (Negative); Ketones Urine Negative (Negative); Leukocyte Esterase Ur Negative LEU/UL (Negative); Mucus Urine Rare /lpf; Nitrate Urine Negative (Negative); Protein Urine 1+ mg/dL (Negative); RBC Urine 0-2 /hpf (0-2); Squamous Epithelial Cell Urine Rare /hpf (Few); Urobilinogen Urine Negative mg/dL (<2.0); WBC Urine 0-3 /hpf
[2021-01-20 07:31] LABS: Specific Grav Ur 1.041 (1.001-1.035)
--- NOTE | 2021-01-20 07:37 | ECG_ITS ---
Measurements Intervals [place] Rate: 100 P: 38 CO: 216 QRS: 39 QRSD: 94 T: 78 QT: 339 QTc: 439 Interpretive Statements SINUS OR ECTOPIC ATRIAL TACHYCARDIA WITH FIRST DEGREE AV BLOCK ATRIAL PREMATURE COMPLEX BORDERLINE ST-T WAVE ABNORMALITY- DIFFUSE LEADS BASELINE ARTIFACT- V1, V4 ABNORMAL ECG Electronically Signed On 01-20-2021 8:51:02 CDT by Dante Soriano D.O.
--- NOTE | 2021-01-20 08:54 | PM.CNCAR ---
Assessment and Plan Assessment and plan (1) Non-STEMI (non-ST elevated myocardial infarction): Code(s): I21.4 - Non-ST elevation (NSTEMI) myocardial infarction Status: Acute Assessment and Plan: Patient admitted with shortness of breath and chest discomfort, unremarkable EKG but significant rise in troponin up to 6.4 suggesting he suffered a non-STEMI last night. Cardiac catheterization 2018 did not show anything easily amenable to percutaneous intervention and he was not thought to be a good candidate for CABG so he has been treated medically. Has multiple comorbidities which complicate aggressive therapy including his CLL, chronic kidney disease, and apparently small caliber coronary arteries. Over the weekend we will continue with medical therapy (aspirin, anticoagulation, nitrates, beta-blockers, statin therapy). Would like to find out from Dr. Ovalle if his chemotherapy is likely to cause any thrombocytopenia and his overall prognosis prior to entertaining thoughts of cardiac catheterization/PCI. Of course, the patient continues to have ongoing chest pain we may be forced to pursue cardiac catheterization/PCI. Hold warfarin, probably change to heparin when INR less than 2.0 depending on pt's course. (2) Acute on chronic combined systolic and diastolic ACC/AHA stage C congestive heart failure: Code(s): I50.43 - Acute on chronic combined systolic (congestive) and diastolic (congestive) heart failure Status: Acute Assessment and Plan: Patient has acute on chronic CHF. Small right pleural effusion presumably due to CHF although pneumonia cannot be excluded. Was given some IV fluids in the ER because of lactic acidosis and acute kidney injury. EF was 40% by echo last week. IV fluids have been discontinued. Will give 20 mg of Lasix IV push today. (3) CLL (chronic lymphocytic leukemia): Onset Date: Unknown Code(s): C91.10 - Chronic lymphocytic leukemia of B-cell type not having achieved remission Status: Acute Assessment and Plan: Diagnosed with chronic lymphocytic leukemia earlier in 2020, on chemotherapy, followed by Dr. Rodolfo. (4) Chronic shortness of breath: Code(s): R06.02 - Shortness of breath Status: Acute Assessment and Plan: Chronic SOB and congestion, has some underlying lung disease. May have a superimposed pneumonia and/or COPD exacerbation as well. May benefit from bronchodilators; will order albuterol nebs. COVID screen pending. (5) Acute kidney injury: Code(s): N17.9 - Acute kidney failure, unspecified Status: Acute Assessment and Plan: 1.6-1.7, up to 2.0 today. Daily INRs. (6) Paroxysmal atrial fibrillation: Code(s): I48.0 - Paroxysmal atrial fibrillation Status: Acute Assessment and Plan: History of PAF, currently in NSR with APCs. 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 INR today was 3.3. Warfarin on hold, may switch to heparin when INR less than 2.0, depending on patient's course. Daily INRs. (8) HTN (hypertension): Code(s): I10 - Essential (primary) hypertension Status: Acute Assessment and Plan: History of hypertension, BP reasonable. (9) Hypercholesterolemia: Code(s): E78.00 - Pure hypercholesterolemia, unspecified Status: Acute Assessment and Plan: On statin therapy. (10) Counseling regarding advance care planning and goals of care: Code(s): Z71.89 - Other specifi
--- NOTE | 2021-01-20 09:24 | PC.NURSE ---
Patient converted to Atrial Fibrillation, patient has a history of afib and takes Coumadin. Spoke with Dr. Carter, she did not want ekg at this time. will continue to monitor closely.
--- NOTE | 2021-01-20 11:11 | PM.IMHP ---
H&P: HPI History of Present Illness Date/Time: 01/20/21 11:11 This is an 85-year-old male with past medical history significant for systolic and diastolic heart failure or arteriovenous malformation coronary artery disease chronic lymphocytic leukemia diabetes mellitus hypertension on paroxysmal atrial fibrillation renal failure patient has an AICD in situ. Patient presented to the emergency room due to shortness of breath patient states that he has been in his usual state of health prior to this he denies any chest pain at this time, no cough, no sputum production, no fevers no rigors no chills, no nausea no vomiting no diarrhea no constipation, no PND no orthopnea no leg swelling. Patient states that he wants to live till he is 89 years old. Preliminary workup is significant for elevated troponins, an ECG did not show any ST segment or T-wave abnormalities, BNP is elevated, a chest x-ray significant for infiltrates. Chief Complaint: Shortness of breath Review of Systems Review of Systems: Narrative: Patient presented to the emergency room due to shortness of breath however he cannot give me much history he can't tell me if it started all of a sudden over was progressive over the course of days or weeks or months apparently he had been in his usual state of health prior to these he does not have any other complaints. [facility] Past Medical History Medical History (Updated 01/20/21 @ 10:22 by Sherrie Carter MD) Acute [place] 2018 Acute on chronic combined systolic and diastolic ACC/AHA stage C congestive heart failure Asbestos exposure Atrial fibrillation AVM (arteriovenous malformation) of colon CAD (coronary artery disease) Cardiac catheterization 2018 showed multivessel CAD, treated medically. Chronic shortness of breath CLL (chronic lymphocytic leukemia) (Unknown) Current use of retirement anticoagulation Diet-controlled diabetes mellitus Erosive gastritis HTN (hypertension) Hypercholesterolemia Non-STEMI (non-ST elevated myocardial infarction) Paroxysmal atrial fibrillation Rectal bleeding Renal failure Skin cancer Surgical History Surgical History (Updated 01/20/21 @ 10:04 by Sherrie Carter MD) AICD (automatic cardioverter/defibrillator) present [employer] single lead ICD, implanted 2018? History of local excision of skin lesion History of thoracentesis Family History Family History (Updated 01/20/21 @ 10:05 by Sherrie Carter MD) Father Pneumonia Mother Acute myocardial infarction Son No problems noted. Social History Social History (Updated 01/20/21 @ 10:06 by Sherrie Carter MD) Social History: Patient lives at home with his , Thee, and his son. He also has a daughter. He wishes his to be his surrogate MDM. He wishes to be a full code. He sees Dr. Rock as his PCP and Dr. Isaac as his Renewals Specialist. Used to work at a [employer]. Smoking status: Former smoker Tobacco type: pipe and cigars Smokeless tobacco user: chewing tobacco Second hand tobacco smoke exposure: No Smoking end date: 10/06/73 Additional smoking assessment comments: SMOKED PIPE AND CIGARS PRIOR 1974 Alcohol intake: former Substance use: never Substance use type: does not use Additional living arrangements comments: Gender identity (if verbalized by the patient): Male Spiritual care concerns: No Meds Home Medications and Allergies Home Medications Medication Instructions Recorded Confirmed Type aspirin 81 mg PO DAILY 06/26/20 01/20/21 History atorvastatin 10 mg PO DAILY 06/26/20 01/20/21 History isosorbide mononitrate 60 mg PO QAM 06/26/20 01/20/21 History hydrocodone-acetaminophen 1 tablet PO Q6H PRN #10 tablet 12/08/20 01/20/21 Rx allopurinol 300 mg PO DAILY 12/21/20 01/20/21 History acyclovir 400 mg PO BID 01/19/21 01/20/21 History carvedilol 6.25 mg PO BID 01/20/21 01/20/21 History lidocaine-prilocaine 1 applic TOPICAL DAILY PRN 01/20/21 01/20/21 History
[2021-01-20 11:18] LABS: Anion Gap 6 mmol/L (8-16); Blood Urea Nitrogen 40 mg/dL (9-20); Calcium 7.6 mg/dL (8.4-10.2); Carbon Dioxide 18 mmol/L (22-30); Chloride 111 mmol/L (98-107); Estimated CRCL calculation 24 ml/min; Estimated Glomerular Filt Rate 34; Glucose 177 mg/dL (75-110); Potassium 4.4 mmol/L (3.4-5.0); Sodium 135 mmol/L (137-145)
[2021-01-20] MEDS: FUROSEMIDE INJ 40 MG/4 ML VIAL 20 MG IV PUSH (11:29)
[2021-01-20] MEDS: carvediloL 6.25 MG TABLET PO ×2 (11:30→20:10)
[2021-01-20] MEDS: ASPIRIN 81 MG CHEWABLE TABLET PO (11:30)
[2021-01-20] MEDS: ATORVASTATIN 10 MG TABLET PO (11:30)
[2021-01-20] MEDS: allopurinoL 300 MG TABLET PO (11:31)
[2021-01-20] MEDS: ISOSORBIDE MONONITRATE 60 MG TAB.ER.24H PO (11:52)
[2021-01-20] MEDS: ACYCLOVIR 400 MG TABLET PO ×2 (11:52→17:46)
[2021-01-20 12:01] LABS: Glucose Point of Care 149 (65-105)
[2021-01-20] MEDS: ALBUTEROL SULFATE NEB 2.5 MG/3 ML INH 1.25 MG INHALATION ×2 (13:36→20:26)
[2021-01-20] MEDS: CENTRAL LINE FLUSH 10 ML IV PUSH ×2 (14:16→22:06)
[2021-01-20 16:13] LABS: Glucose Point of Care 135 (65-105)
[2021-01-20 19:44] LABS: SARS-CoV-2 RNA PCR Negative
[2021-01-20 20:57] LABS: Glucose Point of Care 151 (65-105)
[2021-01-21] VITALS (26 sets, daily range): BP systolic 99–148; BP diastolic 50–81; PULSE 68–117; RESP 12–22; TEMP 36.4–36.6; O2SAT 93–100
[2021-01-21] MEDS: ALBUTEROL SULFATE NEB 2.5 MG/3 ML INH 1.25 MG INHALATION ×4 (01:47→20:53)
[2021-01-21 04:28] LABS: Eosinophils Percent Auto 0.9 % (0-4.4); Hematocrit 23.9 % (42.0-52.0); Immature Granulocyte Absolute 0.03 K/mm3 (0.00-0.031); Immature Granulocyte Percent A 1.4 % (0-0.5); Lymphocytes Absolute Auto 0.75 K/mm3 (0.9-3.2); Lymphocytes Percent Auto 33.8 % (18.3-44.2); Mean Corpuscular HGB Conc 33.5 g/dl (32-36); Mean Corpuscular Hemoglobin 33.6 pg (26-34); Mean Corpuscular Volume 100.4 fl (80-100); Mean Platelet Volume 9.3 fl (7.4-10.4); Monocytes Absolute Auto 0.1 K/mm3 (0.1-0.6); Monocytes Percent Auto 2.3 % (2.6-8.5); Neutrophils Absolute Auto 1.4 K/mm3 (1.3-6.7); Neutrophils Percent Auto 61.6 % (45.5-73.1); Platelet Count Result 104 k/mm3 (150-375); Red Blood Count 2.38 M/mm3 (4.6-6.20); Red Cell Distribution Width 18.6 % (11.5-14.5); White Blood Count 2.2 K/mm3 (4.5-10.0)
[2021-01-21 04:38] LABS: INR 4.5; Prothrombin Time 43.3 Seconds (11.1-14.7)
[2021-01-21 04:51] LABS: Anion Gap 3 mmol/L (8-16); Blood Urea Nitrogen 40 mg/dL (9-20); Calcium 7.5 mg/dL (8.4-10.2); Carbon Dioxide 25 mmol/L (22-30); Chloride 107 mmol/L (98-107); Estimated CRCL calculation 23 ml/min; Estimated Glomerular Filt Rate 32; Glucose 115 mg/dL (75-110); Sodium 135 mmol/L (137-145)
[2021-01-21] MEDS: CENTRAL LINE FLUSH 10 ML IV PUSH ×3 (05:05→21:30)
[2021-01-21 07:41] LABS: Glucose Point of Care 99 (65-105)
[2021-01-21] MEDS: carvediloL 6.25 MG TABLET PO (08:26)
[2021-01-21] MEDS: ASPIRIN 81 MG CHEWABLE TABLET PO (08:26)
[2021-01-21] MEDS: allopurinoL 300 MG TABLET PO (08:27)
[2021-01-21] MEDS: ISOSORBIDE MONONITRATE 60 MG TAB.ER.24H PO (08:27)
[2021-01-21] MEDS: ACYCLOVIR 400 MG TABLET PO ×2 (08:28→17:22)
[2021-01-21] MEDS: ATORVASTATIN 10 MG TABLET PO (08:28)
--- NOTE | 2021-01-21 13:19 | PC.NURSE ---
Dr. Carter notified of patient tachycardia today, will await additional instructions. Will continue to monitor closely.
[2021-01-21] MEDS: AMIODARONE 150 MG/D5W 100 ML 150 MG/100 ML BAG 600 MG IV CONT (13:55)
--- NOTE | 2021-01-21 15:06 | PM.IMPN ---
Progress Note: A&P Assessment and Plan (1) Rash and other nonspecific skin eruption: Code(s): R21 - Rash and other nonspecific skin eruption Status: Acute Assessment and Plan: DISCONTINUED VANCOMYCIN AND CEFEPIME BLOOD CULTURES NO GROWTH CTA NO PNEUMONIA CONTINUE TO MONITOR NONPRURITIC (2) Acute on chronic combined systolic and diastolic ACC/AHA stage C congestive heart failure: Code(s): I50.43 - Acute on chronic combined systolic (congestive) and diastolic (congestive) heart failure Status: Acute Assessment and Plan: GENTLE DIURESIS CONTINUE TO MONITOR (3) Acute dyspnea: Code(s): R06.00 - Dyspnea, unspecified Status: Acute Assessment and Plan: RESOLVED (4) Elevated troponin: Code(s): R77.8 - Other specified abnormalities of plasma proteins Status: Acute Assessment and Plan: PATIENT WITH SIGNIFICANT ELEVATION OF TROPONIN MEDICAL MANAGEMENT APPRECIATE CARDIOLOGY NOTE (5) Acute kidney injury: Code(s): N17.9 - Acute kidney failure, unspecified Status: Acute Assessment and Plan: PATIENT'S CREATININE IS AT PATIENT'S BASELINE WILL CONTINUE TO MONITOR BMP IN AM (6) Anemia due to chemotherapy: Code(s): D64.81 - Anemia due to antineoplastic chemotherapy; T45.1X5A - Adverse effect of antineoplastic and immunosuppressive drugs, initial encounter Status: Acute Assessment and Plan: PATIENT HAD CHEMOTHERAPY JUST RECENTLY WILL CONTINUE TO MONITOR (7) Port-A-Cath in place: Code(s): Z95.828 - Presence of other vascular implants and grafts Status: Acute Assessment and Plan: LOCAL CARE (8) CLL (chronic lymphocytic leukemia): Onset Date: Unknown Code(s): C91.10 - Chronic lymphocytic leukemia of B-cell type not having achieved remission Status: Acute Assessment and Plan: PATIENT UNDERGOING CHEMOTHERAPY (9) AVM (arteriovenous malformation) of colon: Code(s): K55.20 - Angiodysplasia of colon without hemorrhage Status: Acute Assessment and Plan: CONTINUE TO MONITOR (10) CAD (coronary artery disease): Code(s): I25.10 - Atherosclerotic heart disease of red devil coronary artery without angina pectoris Status: Acute Assessment and Plan: PATIENT WITH NSTEMI MEDICALLY MANAGING CARDIOLOGY ON BOARD (11) Atrial fibrillation: Qualifiers: Atrial fibrillation type: unspecified chronic Qualified Code(s): I48.20 - Chronic atrial fibrillation, unspecified Code(s): I48.91 - Unspecified atrial fibrillation Status: Acute Assessment and Plan: CONTINUE TO MONITOR PATIENT IS ANTICOAGULATED ON COUMADIN INR IS 4.5 TODAY WE HAVE BEEN HOLDING COUMADIN RECEIVED AMIODARONE BOLUS AFTER HAVING AN INCREASE HEART RATE INTO THE 130'S Subjective Date/time seen: 01/21/21 15:06 I FEEL FINE Review of Systems Review of Systems: Narrative: PATIENT DENIES ANY ISSUES CURRENTLY Constitutional: Comments: NO FEVERS NO RIGORS NO CHILLS Cardiovascular: Comments: NO CHEST PAIN Respiratory: Comments: NO SHORTNESS OF BREATH NO COUGH NO SPUTUM PRODUCTION Gastrointestinal: Comments: NO NAUSEA NO VOMITING NO DIARRHEA NO CONSTIPATION Musculoskeletal: Comments: NO JOINT PAIN OR MUSCLE PAIN Integumentary/Breasts: Comments: NO RASHES Neurologic: Comments: NO SENSORIMOTOR DEFICIT Exam Narrative: Exam Narrative: PATIENT IS LAYING IN BED Const: General: comfortable, no acute distress, well developed, alert and awake Nutritional Appearance: average body habitus Orientation/consciousness: patient oriented x3 HENMT: Head: normal to inspection, normocephalic and atraumatic Ears: hearing grossly normal bilaterally Face and sinus: normal facial exam Eyes: General: appearance normal, both eyes and all related structures Pupils: Equal, round and reactive pupils present EOM: EOMs intact bilaterally Neck:
--- NOTE | 2021-01-21 16:52 | PM.PNCARD ---
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 Cardiac catheterization 2018 did not show anything easily amenable to percutaneous intervention and he was not thought to be a good candidate for CABG so he has been treated medically. Has multiple comorbidities which complicate aggressive therapy including his CLL, chronic kidney disease, and apparently small caliber coronary arteries. We will continue with medical therapy (aspirin, anticoagulation, nitrates, beta-blockers, statin therapy). Would like to find out from Dr. Ovalle if his chemotherapy is likely to cause any thrombocytopenia and his overall prognosis prior to entertaining thoughts of cardiac catheterization/PCI. Of course, the patient continues to have ongoing chest pain we may be forced to pursue cardiac catheterization/PCI. Holding warfarin as INR high. (2) Acute on chronic combined systolic and diastolic ACC/AHA stage C congestive heart failure: Code(s): I50.43 - Acute on chronic combined systolic (congestive) and diastolic (congestive) heart failure Status: Acute Assessment and Plan: Patient has acute on chronic CHF. Small right pleural effusion presumably due to CHF although pneumonia cannot be excluded. Was given some IV fluids in the ER because of lactic acidosis and acute kidney injury. EF was 40% by echo last week. Significantly improved after one dose Lasix IV Friday. (3) Paroxysmal atrial fibrillation: Code(s): I48.0 - Paroxysmal atrial fibrillation Status: Acute Assessment and Plan: History of PAF,went into a fib RVR today. Improved after one dose IV amio. Will increase carvedilol to 12.5 mg BID. Low BP is limiting choice of treatment. Trying to avoid amiodarone because INR is so high and amio will likely aggravate that. 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 INR today was 4.5; mild epistaxis. Warfarin on hold. NOACs too expensive. Daily INRs. (5) Chronic shortness of breath: Code(s): R06.02 - Shortness of breath Status: Acute Assessment and Plan: Chronic SOB and congestion, has some underlying lung disease. May have a superimposed pneumonia and/or COPD exacerbation as well. Albuterol nebs help. COVID screen negative. (6) Acute kidney injury: Code(s): N17.9 - Acute kidney failure, unspecified Status: Acute Assessment and Plan: Baseline creat 1.6-1.7, up to 2.0 . Daily BMPs. (7) Constipation: Code(s): K59.00 - Constipation, unspecified Status: Acute Assessment and Plan: Laxatives. (8) CLL (chronic lymphocytic leukemia): Onset Date: Unknown Code(s): C91.10 - Chronic lymphocytic leukemia of B-cell type not having achieved remission Status: Acute Assessment and Plan: Diagnosed with chronic lymphocytic leukemia earlier in 2020, on chemotherapy, followed by Dr. Reynolds. Subjective Date/time seen: 01/21/21 16:52 Interval history: FU NSTEMI. Also: CAD, Paroxysmal ATrial fib, [employer] ICD and decreased LV function followed by Dr. Matty Isaac at [facility]. He also has a history of CLL earlier this year followed by Dr. Reynolds. He has a history of chronic kid
[2021-01-21] MEDS: BISACODYL 10 MG SUPPOSITORY RECTAL (17:17)
[2021-01-21] MEDS: DOCUSATE SODIUM 100 MG CAPSULE PO ×2 (17:21→21:30)
[2021-01-21] MEDS: carvediloL 12.5 MG TABLET PO (21:30)
[2021-01-22] VITALS (25 sets, daily range): BP systolic 105–134; BP diastolic 48–63; PULSE 73–103; RESP 18–20; TEMP 35.8–36.9; O2SAT 95–100
--- NOTE | 2021-01-22 | ECHO_ITS ---
Patient Info Name: Trey Sargent Age: 85 years : 1935 Gender: Male Ht: 67 in Wt: 154 lbs BSA: 1.82 m2 HR: 94 bpm BP: 118 / 63 mmHg Heart Rhythm: Atrial Fibrillation Technical Quality: Good Exam Date: 01/22/2021 10:22 AM Exam Location: [facility] Pulmonary Exam Room: 204 Patient Status: Inpatient Admit Date: 01/20/2021 Staff Ordering Physician: Nancy Salas MD Machine Room Operator: Marybeth Espinoza RDCS Attending Provider: Cherry Samaniego DO Referring Physician: Maritza JAMA; Exam Type: CA echo doppler color flow Study Info Indications - chf Complete two-dimensional, color flow and Doppler transthoracic echocardiogram is performed. Summary 1. Complete two-dimensional, color flow and Doppler transthoracic echocardiogram is performed. 2. Left ventricular chamber dimension is mildly enlarged. 3. Left ventricular systolic function is mildly reduced, estimated at 40-45%. 4. Linear artifact in right ventricle suggestive of catheter(s), pacemaker lead(s), or ICD lead(s). 5. Left atrial chamber dimension is moderately enlarged. 6. There is mild aortic valve regurgitation. 7. There is mild mitral valve regurgitation. 8. Aortic valve leaflets are thickened but exhibited good systolic excursion. Left Ventricle Left ventricular chamber dimension is mildly enlarged. Left ventricular systolic function is mildly reduced, estimated at 40-45%. The left ventricular diastolic function is indeterminate. Right Ventricle Right ventricular chamber dimension is normal. Linear artifact in right ventricle suggestive of catheter(s), pacemaker lead(s), or ICD lead(s). Left Atria Left atrial chamber dimension is moderately enlarged. Right Atria Right atrial chamber dimension is normal. Aortic Valve The aortic valve is trileaflet. There is mild aortic valve sclerosis. There is no aortic valve stenosis. There is mild aortic valve regurgitation. Aortic valve leaflets are thickened but exhibited good systolic excursion. Pulmonic Valve The pulmonic valve is not well visualized. Mitral Valve The mitral valve has normal leaflets. There is mild mitral valve regurgitation. Tricuspid Valve The tricuspid valve leaflets are normal. Pericardium/Pleural The pericardium appears normal. Aorta The aortic root size at the sinus of Valsalva is normal. Left Ventricular Outflow Tract Name Value Normal LVOT 2D LVOT Diameter 2.1 cm LVOT Doppler LVOT Peak Gradient 6 mmHg LVOT Mean Gradient 3 mmHg LVOT VTI 23 cm LVOT VTI/AV VTI Ratio 0.7 LVOT Stroke Volume 77 ml LVOT CO 17.7 l/min LVOT CI 9.7 l/min/m2 Pulmonic Valve Name Value Normal PV Doppler
[2021-01-22] MEDS: ALBUTEROL SULFATE NEB 2.5 MG/3 ML INH 1.25 MG INHALATION ×4 (02:15→20:53)
[2021-01-22] MEDS: CENTRAL LINE FLUSH 10 ML IV PUSH ×3 (05:46→20:49)
[2021-01-22] MEDS: carvediloL 12.5 MG TABLET PO ×2 (08:36→20:49)
[2021-01-22] MEDS: ACYCLOVIR 400 MG TABLET PO ×2 (08:36→16:30)
[2021-01-22] MEDS: ATORVASTATIN 10 MG TABLET PO (08:36)
[2021-01-22] MEDS: allopurinoL 300 MG TABLET PO (08:36)
[2021-01-22] MEDS: ASPIRIN 81 MG CHEWABLE TABLET PO (08:36)
[2021-01-22] MEDS: ISOSORBIDE MONONITRATE 30 MG TAB.ER.24H PO (08:37)
--- NOTE | 2021-01-22 08:45 | PM.PNCARD ---
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 Cardiac catheterization 2018 did not show anything easily amenable to percutaneous intervention and he was not thought to be a good candidate for CABG so he has been treated medically. Has multiple comorbidities which complicate aggressive therapy including his CLL, chronic kidney disease, and apparently small caliber coronary arteries. We will continue with medical therapy (aspirin, anticoagulation, nitrates, beta-blockers, statin therapy). Would like to find out from Dr. Ovalel if his chemotherapy is likely to cause any thrombocytopenia and his overall prognosis prior to entertaining thoughts of cardiac catheterization/PCI. Of course, the patient continues to have ongoing chest pain we may be forced to pursue cardiac catheterization/PCI. Holding warfarin as INR high. Med management to be continued. Obviously can up titrate his isosorbide or add Ranexa if need be. He is currently pain-free. Once stable, follow-up with Dr. Isaac at [place] (2) Acute on chronic combined systolic and diastolic ACC/AHA stage C congestive heart failure: Code(s): I50.43 - Acute on chronic combined systolic (congestive) and diastolic (congestive) heart failure Status: Acute Assessment and Plan: Patient has acute on chronic CHF. Small right pleural effusion presumably due to CHF although pneumonia cannot be excluded. Was given some IV fluids in the ER because of lactic acidosis and acute kidney injury. EF was 40% by echo last week. Significantly improved after one dose Lasix IV Friday. Will give him some maintenance furosemide 20 mg daily. Follow creatinine. (3) Paroxysmal atrial fibrillation: Code(s): I48.0 - Paroxysmal atrial fibrillation Status: Acute Assessment and Plan: History of PAF,went into a fib RVR today. Improved after one dose IV amio. Continue carvedilol. Low BP is limiting choice of treatment. Trying to avoid amiodarone because INR is so high and amio will likely aggravate that. 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 INR now. Warfarin was still active and so I will hold at this point (5) Chronic shortness of breath: Code(s): R06.02 - Shortness of breath Status: Acute Assessment and Plan: Chronic SOB and congestion, has some underlying lung disease. May have a superimposed pneumonia and/or COPD exacerbation as well. Albuterol nebs help. COVID screen negative. (6) Acute kidney injury: Code(s): N17.9 - Acute kidney failure, unspecified Status: Acute Assessment and Plan: Baseline creat 1.6-1.7, up to 2.0 . Daily BMPs. (7) Constipation: Code(s): K59.00 - Constipation, unspecified Status: Acute Assessment and Plan: Laxatives. (8) CLL (chronic lymphocytic leukemia): Onset Date: Unknown Code(s): C91.10 - Chronic lymphocytic leukemia of B-cell type not having achieved remission Status: Acute Assessment and Plan: Diagnosed with chronic lymphocytic leukemia earlier in 2020, on chemotherapy, followed by Dr. Reynolds. Subjective Date/time seen: 01/22/21 08:45 Interval history: FELICITAS GARSIA. Also: ALEC,
[2021-01-22] MEDS: FUROSEMIDE 20 MG TABLET PO (09:23)
[2021-01-22 10:02] LABS: Hematocrit 22.8 % (42.0-52.0); Hemoglobin 7.6 g/dL (14.0-18.0); Mean Corpuscular HGB Conc 33.3 g/dl (32-36); Mean Corpuscular Hemoglobin 33.5 pg (26-34); Mean Corpuscular Volume 100.4 fl (80-100); Mean Platelet Volume 9.4 fl (7.4-10.4); Platelet Count Result 109 k/mm3 (150-375); Red Blood Count 2.27 M/mm3 (4.6-6.20); Red Cell Distribution Width 18.6 % (11.5-14.5)
[2021-01-22 10:04] LABS: White Blood Count 1.5 K/mm3 (4.5-10.0)
[2021-01-22 10:10] LABS: INR 2.6; Prothrombin Time 28.2 Seconds (11.1-14.7)
[2021-01-22 10:15] LABS: Anion Gap 0 mmol/L (8-16); Blood Urea Nitrogen 39 mg/dL (9-20); Calcium 7.3 mg/dL (8.4-10.2); Carbon Dioxide 28 mmol/L (22-30); Chloride 104 mmol/L (98-107); Estimated CRCL calculation 22 ml/min; Estimated Glomerular Filt Rate 30; Glucose 155 mg/dL (75-110); Potassium 3.8 mmol/L (3.4-5.0); Sodium 132 mmol/L (137-145)
--- NOTE | 2021-01-22 13:41 | PM.IMPN ---
Progress Note: A&P Assessment and Plan (1) Rash and other nonspecific skin eruption: Code(s): R21 - Rash and other nonspecific skin eruption Status: Acute Assessment and Plan: Discontinued vancomycin and cefepime However the rash is slightly worse today Patient does not complain of pruritus Localized to the abdomen (2) Non-STEMI (non-ST elevated myocardial infarction): Code(s): I21.4 - Non-ST elevation (NSTEMI) myocardial infarction Status: Acute Assessment and Plan: Medically managed Chest pain Hemodynamically stable Appreciate cardiology note (3) Acute on chronic combined systolic and diastolic ACC/AHA stage C congestive heart failure: Code(s): I50.43 - Acute on chronic combined systolic (congestive) and diastolic (congestive) heart failure Status: Acute Assessment and Plan: Diuresing Fluid restriction Daily intakes and outputs (4) Acute dyspnea: Code(s): R06.00 - Dyspnea, unspecified Status: Acute Assessment and Plan: improved (5) Elevated troponin: Code(s): R77.8 - Other specified abnormalities of plasma proteins Status: Acute Assessment and Plan: NSTEMI Patient had a catheterization back in 2018 Apparently patient not a candidate for percutaneous coronary angioplasty (6) HTN (hypertension): Code(s): I10 - Essential (primary) hypertension Status: Acute Assessment and Plan: Well controlled (7) AICD (automatic cardioverter/defibrillator) present: Code(s): Z95.810 - Presence of automatic (implantable) cardiac defibrillator Status: Acute Assessment and Plan: Continue to monitor (8) AVM (arteriovenous malformation) of colon: Code(s): K55.20 - Angiodysplasia of colon without hemorrhage Status: Acute Assessment and Plan: Continue to monitor (9) Warfarin-induced coagulopathy: Code(s): D68.32 - Hemorrhagic disorder due to extrinsic circulating anticoagulants; T45.515A - Adverse effect of anticoagulants, initial encounter Status: Acute Assessment and Plan: Holding Coumadin due to elevated INR Restart once INR normalizes Subjective Date/time seen: 01/22/21 13:41 I feel fine Review of Systems Review of Systems: Narrative: At the time of my visit patient denied any complaints or any issues states that he slept really well Exam Narrative: Exam Narrative: Patient is laying in bed in no acute distress Const: General: comfortable, no acute distress, well developed, alert and awake Nutritional Appearance: average body habitus Orientation/consciousness: patient oriented x3 HENMT: Head: normal to inspection, normocephalic and atraumatic Ears: hearing grossly normal bilaterally Face and sinus: normal facial exam Eyes: General: appearance normal, both eyes and all related structures Pupils: Equal, round and reactive pupils present EOM: EOMs intact bilaterally Neck: Neck: full ROM, no lymphadenopathy and no JVD Thyroid: thyroid normal Lymphatic: no lymphadenopathy noted Resp: Effort & Inspection: normal respiratory effort and able to speak in complete sentences Auscultation: clear to auscultation bilaterally Cardio: Jugular venous distension: no JVD Rate: regular rate Rhythm: regular rhythm Heart sounds: S1 normal heart sound present and S2 normal heart sound present GI: GI Palp: Yes Soft to palpation and Yes No hepatosplenomegaly present : General: Yes deferred Skin: Rashes: rashes noted maculopapular rash anterior abdomen Wounds: no wounds Neuro: General: patient oriented x3 and CN's II-XI intact bilaterally Cranial nerves: Yes CN's II-XII intact bilaterally and Yes Equal, round and reactive pupils present Cognition (Neuro): normal cognition Speech: normal speech Gait exam (Neuro): Normal gait present Motor exam (neuro): 5/5 motor strength present throughout Extrem: General: normal to inspection, full ROM, no joint enlargemen
--- NOTE | 2021-01-22 17:22 | PDONCCN ---
HPI - Date of Consult Date/Time: 01/22/21 17:22 Requesting Physician: Cherry Samaniego DO Primary Care Provider: Julio Rock, - Consult Narrative Reason for consult: Chronic lymphocytic leukemia/small lymphocytic lymphoma Narrative: Trey Sargent is a 85 year old male with recent diagnosis of CLL/SLL started on chemotherapy with bendamustine Rituxan on December 20, 2020. CT scan at that time showed diffuse lymphadenopathy. Chemotherapy was started due to constitutional symptoms and prominent lymphadenopathy. Patient received cycle 2 on January 18, 2021. He also has a history of anemia of chronic kidney disease along with liver cirrhosis. Patient now came into the hospital with shortness of breath. He denies any chest pain. Denies any cough and fevers and chills. Patient also has a history of congestive heart failure and coronary artery disease. Labs showed elevated BNP and chest x-ray showed significant infiltrate. Troponin was found to be elevated suggesting non STEMI. Cardiology service was consulted. Other labs showed WBC count of 2.2 with hemoglobin of 8.0 and platelet of [id number]. He denies any bleeding. Review of Systems - Review of Systems All systems reviewed & are unremarkable except as noted in HPI and bel - Neurologic Denies abnormal speech, Denies behavioral changes, Denies confusion [facility] Medical History: Medical History (Last Updated 01/20/21 @ 10:04 by Sherrie Carter MD) Acute MS 2018 Acute on chronic combined systolic and diastolic ACC/AHA stage C congestive heart failure Asbestos exposure Atrial fibrillation AVM (arteriovenous malformation) of colon CAD (coronary artery disease) Cardiac catheterization 2018 showed multivessel CAD, treated medically. Chronic shortness of breath CLL (chronic lymphocytic leukemia) Onset Date: Unknown Current use of prison anticoagulation Diet-controlled diabetes mellitus Erosive gastritis HTN (hypertension) Hypercholesterolemia Non-STEMI (non-ST elevated myocardial infarction) Paroxysmal atrial fibrillation Rectal bleeding Renal failure Skin cancer Surgical History: Surgical History (Last Updated 01/20/21 @ 10:04 by Sherrie Carter MD) AICD (automatic cardioverter/defibrillator) present [employer] single lead ICD, implanted 2018? History of local excision of skin lesion History of thoracentesis Family History: Family History (Last Updated 01/20/21 @ 10:05 by Sherrie Carter MD) Father Pneumonia Mother Acute myocardial infarction Son No problems noted. - Social History Social History: Social History (Last Updated 01/20/21 @ 10:06 by Sherrie Carter MD) Gender Identity: Gender identity (if verbalized by the patient): Male Alcohol Use: Alcohol intake: former Substance Use: Substance use: never Substance use type: does not use Others: Spiritual care concerns: No Smoking Status: Smoking status: Former smoker Tobacco type: pipe Tobacco type: cigars Smokeless tobacco user: chewing tobacco Second hand tobacco smoke exposure: No Smoking end date: 10/06/73 Comments: Additional smoking assessment comments: SMOKED PIPE AND CIGARS PRIOR 1974 [facility] Medications Medication Instructions Recorded Confirmed Type aspirin 81 mg PO DAILY 06/26/20 01/20/21 History atorvastatin 10 mg PO DAILY 06/26/20 01/20/21 History isosorbide mononitrate 30 mg PO QAM 06/26/20 01/21/21 History hydrocodone-acetaminophen 1 tablet PO Q6H PRN #10 tablet 12/08/20 01/20/21 Rx allopurinol 300 mg PO DAILY 12/21/20 01/20/21 History acyclovir 400 mg PO BID 01/19/21 01/20/21 History carvedilol 6.25 mg PO BID 01/20/21 01/20/21 History lidocaine-prilocaine 1 applic TOPICAL DAILY PRN 01/20/21 01/20/21 History ondansetron HCl 8 mg PO Q8H PRN 01/20/21 01/20/21 History sulfamethoxazole-trimethoprim 1 tablet PO 3XW 01/20/21 01/20/21 History warfarin 3 mg PO DAILY
[2021-01-22] MEDS: EPOETIN ALFA-EPBX 20,000 UNITS/ML VIAL 20000 UNITS SUB-Q (18:39)
[2021-01-22] MEDS: DOCUSATE SODIUM 100 MG CAPSULE PO (20:49)
[2021-01-23] VITALS (22 sets, daily range): BP systolic 101–141; BP diastolic 41–62; PULSE 82–105; RESP 17–20; TEMP 36.6–36.9; O2SAT 96–100
[2021-01-23] MEDS: ALBUTEROL SULFATE NEB 2.5 MG/3 ML INH 1.25 MG INHALATION ×4 (02:42→20:55)
[2021-01-23] MEDS: CENTRAL LINE FLUSH 10 ML IV PUSH ×3 (05:33→21:10)
[2021-01-23] MEDS: ASPIRIN 81 MG CHEWABLE TABLET PO (08:26)
[2021-01-23] MEDS: ISOSORBIDE MONONITRATE 30 MG TAB.ER.24H PO (08:26)
[2021-01-23] MEDS: carvediloL 12.5 MG TABLET PO ×2 (08:27→21:10)
[2021-01-23] MEDS: ACYCLOVIR 400 MG TABLET PO ×2 (08:27→16:31)
[2021-01-23] MEDS: FUROSEMIDE 20 MG TABLET PO (08:27)
[2021-01-23] MEDS: allopurinoL 300 MG TABLET PO (08:27)
[2021-01-23] MEDS: ATORVASTATIN 10 MG TABLET PO (08:27)
[2021-01-23 08:46] LABS: Hematocrit 26.7 % (42.0-52.0); Hemoglobin 8.9 g/dL (14.0-18.0); Mean Corpuscular HGB Conc 33.3 g/dl (32-36); Mean Corpuscular Hemoglobin 33.7 pg (26-34); Mean Corpuscular Volume 101.1 fl (80-100); Mean Platelet Volume 8.9 fl (7.4-10.4); Platelet Count Result 113 k/mm3 (150-375); Red Blood Count 2.64 M/mm3 (4.6-6.20); Red Cell Distribution Width 18.4 % (11.5-14.5)
[2021-01-23 08:49] LABS: White Blood Count 1.9 K/mm3 (4.5-10.0)
[2021-01-23 08:59] LABS: Anion Gap 5 mmol/L (8-16); Blood Urea Nitrogen 43 mg/dL (9-20); Carbon Dioxide 27 mmol/L (22-30); Chloride 103 mmol/L (98-107); Estimated CRCL calculation 24 ml/min; Estimated Glomerular Filt Rate 34; Glucose 147 mg/dL (75-110); Potassium 3.9 mmol/L (3.4-5.0); Sodium 135 mmol/L (137-145)
[2021-01-23 09:05] LABS: INR 1.5; Prothrombin Time 18.9 Seconds (11.1-14.7)
--- NOTE | 2021-01-23 10:41 | PM.PNCARD ---
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 Cardiac catheterization 2018 did not show anything easily amenable to percutaneous intervention and he was not thought to be a good candidate for CABG so he has been treated medically. Has multiple comorbidities which complicate aggressive therapy including his CLL, chronic kidney disease, and apparently small caliber coronary arteries. We will continue with medical therapy (aspirin, anticoagulation, nitrates, beta-blockers, statin therapy). Would like to find out from Dr. Ovalle if his chemotherapy is likely to cause any thrombocytopenia and his overall prognosis prior to entertaining thoughts of cardiac catheterization/PCI. Of course, the patient continues to have ongoing chest pain we may be forced to pursue cardiac catheterization/PCI. Resuming warfarin 3 mg daily today Med management to be continued. Obviously can up titrate his isosorbide or add Ranexa if need be. He is currently pain-free. Once stable, follow-up with Dr. Isaac [facility] (2) Acute on chronic combined systolic and diastolic ACC/AHA stage C congestive heart failure: Code(s): I50.43 - Acute on chronic combined systolic (congestive) and diastolic (congestive) heart failure Status: Acute Assessment and Plan: Patient has acute on chronic CHF. Small right pleural effusion presumably due to CHF although pneumonia cannot be excluded. Was given some IV fluids in the ER because of lactic acidosis and acute kidney injury. EF was 40% by echo last week. Significantly improved after one dose Lasix IV Friday. Continue furosemide 20 mg daily. Follow creatinine. (3) Paroxysmal atrial fibrillation: Code(s): I48.0 - Paroxysmal atrial fibrillation Status: Acute Assessment and Plan: History of PAF,went into a fib RVR today. Improved after one dose IV amio. Continue carvedilol. Low BP is limiting choice of treatment. Trying to avoid amiodarone because INR is so high and amio will likely aggravate that. (4) Current use of watermaster anticoagulation: Code(s): Z79.01 - watermaster (current) use of anticoagulants Status: Acute Assessment and Plan: On warfarin for PAF. Resuming warfarin (5) Chronic shortness of breath: Code(s): R06.02 - Shortness of breath Status: Acute Assessment and Plan: Chronic SOB and congestion, has some underlying lung disease. May have a superimposed pneumonia and/or COPD exacerbation as well. Albuterol nebs help. COVID screen negative. (6) Acute kidney injury: Code(s): N17.9 - Acute kidney failure, unspecified Status: Acute Assessment and Plan: Baseline creat 1.6-1.7, up to 2.0 . Daily BMPs. (7) Constipation: Code(s): K59.00 - Constipation, unspecified Status: Acute Assessment and Plan: Laxatives. (8) CLL (chronic lymphocytic leukemia): Onset Date: Unknown Code(s): C91.10 - Chronic lymphocytic leukemia of B-cell type not having achieved remission Status: Acute Assessment and Plan: Diagnosed with chronic lymphocytic leukemia earlier in 2020, on chemotherapy, followed by Dr. Reynolds. Subjective Date/time seen: 01/23/21 10:41 Interval history: FU NSTEMI. Also: CAD, Paroxysmal ATrial fib, [employer] ICD and decreased LV func
--- NOTE | 2021-01-23 13:10 | WPDONCPN ---
Progress Note: A/P - Additional Plan CLL/SLL. Status post chemotherapy. Patient will resume chemotherapy cycle 3 as an outpatient. Pancytopenia. WBC count has improved. Hemoglobin also has improved. Patient received Procrit for anemia of chronic kidney disease. Antimicrobial prophylaxis. Continue acyclovir. Non STEMI. Cardiology input is noted. Patient will have a good prognosis from CLL/SLL. Patient is feeling better today. Atrial fibrillation. Patient is back on warfarin. Platelet count is stable. Patient can continue warfarin as long as platelet count is more than 75,000. - Time Spent With Patient Total time spent is greater than 50% in coordination of care (as documented) at patient's floor/unit and/or counseling patient: 15 - 25 minutes Subjective Interval history: Small lymphocytic lymphoma/CLL Non STEMI Review of Systems - Review of Systems Patient is feeling much better and more stronger today. He denies any bleeding and bruising. He is eating his lunch comfortably. Denies any further chest discomfort. - Neurologic Denies abnormal speech, Denies behavioral changes, Denies confusion Exam Vital signs: Temp Pulse Resp BP Pulse Ox 36.6 C 96 19 101/41 L 98 01/23/21 12:00 01/23/21 12:00 01/23/21 12:00 01/23/21 12:00 01/23/21 12:00 Narrative: Lungs are clear to auscultation bilaterally Cardiovascular regular rate rhythm no murmurs Abdomen soft nontender nondistended bowel sounds are positive Extremities no edema PN: Objective Data - Labs CBC & Chem 7: 01/23/21 08:26 01/23/21 08:26 Labs: Laboratory Results - last 24 hr 01/23/21 01/23/21 01/23/21 08:26 08:26 08:26 WBC 1.9 L RBC 2.64 L Hgb 8.9 L Hct 26.7 L MCV 101.1 H MCH 33.7 MCHC 33.3 RDW 18.4 H Plt Count 113 L MPV 8.9 PT 18.9 H D INR 1.5 Sodium 135 L Potassium 3.9 Chloride 103 Carbon Dioxide 27 Anion Gap 5 L BUN 43 H Creatinine 1.90 H Estim Creat Clear Calc 24 Estimated GFR 34 L Glucose 147 H Calcium 8.0 L
--- NOTE | 2021-01-23 14:12 | PM.IMPN ---
Progress Note: A&P Assessment and Plan (1) Rash and other nonspecific skin eruption: Code(s): R21 - Rash and other nonspecific skin eruption Status: Acute Assessment and Plan: Discontinued vancomycin and cefepime However the rash is slightly worse today maculopapular rash (2) Non-STEMI (non-ST elevated myocardial infarction): Code(s): I21.4 - Non-ST elevation (NSTEMI) myocardial infarction Status: Acute Assessment and Plan: Chest pain Continue current cardiac medications (3) Acute on chronic combined systolic and diastolic ACC/AHA stage C congestive heart failure: Code(s): I50.43 - Acute on chronic combined systolic (congestive) and diastolic (congestive) heart failure Status: Acute Assessment and Plan: Diuresing (4) Acute dyspnea: Code(s): R06.00 - Dyspnea, unspecified Status: Acute Assessment and Plan: improved (5) Elevated troponin: Code(s): R77.8 - Other specified abnormalities of plasma proteins Status: Acute Assessment and Plan: NSTEMI Patient had a catheterization back in 2018 Apparently patient not a candidate for percutaneous coronary angioplasty (6) HTN (hypertension): Code(s): I10 - Essential (primary) hypertension Status: Acute Assessment and Plan: Well controlled (7) AICD (automatic cardioverter/defibrillator) present: Code(s): Z95.810 - Presence of automatic (implantable) cardiac defibrillator Status: Acute Assessment and Plan: Continue to monitor, discussed with cardiology (8) AVM (arteriovenous malformation) of colon: Code(s): K55.20 - Angiodysplasia of colon without hemorrhage Status: Acute Assessment and Plan: Continue to monitor (9) Warfarin-induced coagulopathy: Code(s): D68.32 - Hemorrhagic disorder due to extrinsic circulating anticoagulants; T45.515A - Adverse effect of anticoagulants, initial encounter Status: Acute Assessment and Plan: Restart Coumadin Subjective Date/time seen: 01/23/21 14:12 Interval history: Documentation of this patient encounter should include: Reason for the encounter Relevant history Pt admitted NSTEMI, no CP, pt has a bad rash on his chest. Review of Systems Review of Systems: All systems reviewed & are unremarkable except as noted in HPI and below Exam Narrative: Exam Narrative: Patient is laying in bed in no acute distress Eyes: General: appearance normal, both eyes and all related structures Pupils: Equal, round and reactive pupils present Cardio: Rhythm: regular rhythm Heart sounds: S1 normal heart sound present and S2 normal heart sound present Neuro: General: patient oriented x3 and CN's II-XI intact bilaterally Cranial nerves: Yes CN's II-XII intact bilaterally and Yes Equal, round and reactive pupils present Cognition (Neuro): normal cognition Speech: normal speech Gait exam (Neuro): Normal gait present Motor exam (neuro): 5/5 motor strength present throughout Extrem: General: normal to inspection, full ROM, no joint enlargement and no pedal edema Objective Data Vital Signs Vital Signs: Vital Signs - 24 hr 01/22/21 14:20 01/22/21 14:30 01/22/21 16:00 Temperature 36.6 C Pulse Rate 94 96 73 Respiratory Rate 18 18 19 Blood Pressure 130/50 L Pulse Oximetry 100 01/22/21 18:00 01/22/21 20:00 01/22/21 20:49 Temperature 36.6 C Pulse Rate 102 H 94 102 H Respiratory Rate 18 Blood Pressure 134/59 L Pulse Oximetry 99 01/22/21 20:53 01/22/21 21:02 01/22/21 21:58 Temperature Pulse Rate 103 H 99 87 Respiratory Rate 18 18 Blood Pressure Pulse Oximetry 99 01/22/21 23:28 01/22/21 23:41 01/23/21 02:00 Temperature 36.6 C Pulse Rate 99 90 92 Respiratory Rate 20 20 Blood Pressure 118/63 Pulse Oximetry 97 97 01/23/21 02:42 01/23/21 02:50 01/23/21 04:00 Temperature 36.6 C Pulse Rate 98 98 94 Respiratory
[2021-01-23] MEDS: WARFARIN (*PBKC) 3 MG TABLET PO (17:02)
--- NOTE | 2021-01-23 17:11 | PC.NURSE ---
Transfer patient received from IMU. Report received from HAZEL Elils.
--- NOTE | 2021-01-23 17:32 | PC.NURSE ---
This patient, Trey Sargent, was transferred to [ [id number] ] on 01/23/21 at 1705. Personal belongings sent with patient. Report given to [ HAZEL Rod. ]. Appropriate documentation sent with patient.
[2021-01-23] MEDS: DOCUSATE SODIUM 100 MG CAPSULE PO (21:10)
[2021-01-23] MEDS: HYDROCORTISONE 1% 30 GM OINTMENT 1 APPLIC TOPICAL (21:10)
[2021-01-24] VITALS (10 sets, daily range): BP systolic 131; BP diastolic 61; PULSE 87–102; RESP 16–18; TEMP 36.6; O2SAT 98
[2021-01-24] MEDS: ALBUTEROL SULFATE NEB 2.5 MG/3 ML INH 1.25 MG INHALATION (02:10)
[2021-01-24] MEDS: CENTRAL LINE FLUSH 10 ML IV PUSH (05:15)
[2021-01-24 05:28] LABS: Hematocrit 22.9 % (42.0-52.0); Hemoglobin 7.7 g/dL (14.0-18.0); Mean Corpuscular HGB Conc 33.6 g/dl (32-36); Mean Corpuscular Hemoglobin 33.5 pg (26-34); Mean Corpuscular Volume 99.6 fl (80-100); Mean Platelet Volume 10.1 fl (7.4-10.4); Platelet Count Result 105 k/mm3 (150-375); Red Cell Distribution Width 18.4 % (11.5-14.5)
[2021-01-24 05:35] LABS: White Blood Count 1.4 K/mm3 (4.5-10.0)
[2021-01-24 05:48] LABS: Anion Gap 3 mmol/L (8-16); Blood Urea Nitrogen 43 mg/dL (9-20); Calcium 7.5 mg/dL (8.4-10.2); Carbon Dioxide 27 mmol/L (22-30); Chloride 103 mmol/L (98-107); Estimated CRCL calculation 25 ml/min; Estimated Glomerular Filt Rate 36; Glucose 120 mg/dL (75-110); Potassium 3.7 mmol/L (3.4-5.0); Sodium 133 mmol/L (137-145)
[2021-01-24] MEDS: ALBUTEROL SULFATE NEB 2.5 MG/0.5 ML INH 5 MG INHALATION (08:29)
[2021-01-24] MEDS: FUROSEMIDE 20 MG TABLET PO (09:19)
[2021-01-24] MEDS: carvediloL 12.5 MG TABLET PO (09:19)
[2021-01-24] MEDS: allopurinoL 300 MG TABLET PO (09:19)
[2021-01-24] MEDS: ACYCLOVIR 400 MG TABLET PO (09:19)
[2021-01-24] MEDS: ASPIRIN 81 MG CHEWABLE TABLET PO (09:19)
[2021-01-24] MEDS: ATORVASTATIN 10 MG TABLET PO (09:19)
[2021-01-24] MEDS: ISOSORBIDE MONONITRATE 30 MG TAB.ER.24H PO (09:19)
[2021-01-24] MEDS: HYDROCORTISONE 1% 30 GM OINTMENT 1 APPLIC TOPICAL (09:20)
--- NOTE | 2021-01-24 10:10 | PM.PNCARD ---
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 Cardiac catheterization 2018 did not show anything easily amenable to percutaneous intervention and he was not thought to be a good candidate for CABG so he has been treated medically. Has multiple comorbidities which complicate aggressive therapy including his CLL, chronic kidney disease, and apparently small caliber coronary arteries. We will continue with medical therapy (aspirin, anticoagulation, nitrates, beta-blockers, statin therapy). Would like to find out from Dr. Ovalle if his chemotherapy is likely to cause any thrombocytopenia and his overall prognosis prior to entertaining thoughts of cardiac catheterization/PCI. Of course, the patient continues to have ongoing chest pain we may be forced to pursue cardiac catheterization/PCI. Continue warfarin 3 mg daily. INR now Med management to be continued. Obviously can up titrate his isosorbide or add Ranexa if need be. He is currently pain-free. Once stable, follow-up with Dr. Isaac at [facility] planning (2) Acute on chronic combined systolic and diastolic ACC/AHA stage C congestive heart failure: Code(s): I50.43 - Acute on chronic combined systolic (congestive) and diastolic (congestive) heart failure Status: Acute Assessment and Plan: Patient has acute on chronic CHF. Small right pleural effusion presumably due to CHF although pneumonia cannot be excluded. Was given some IV fluids in the ER because of lactic acidosis and acute kidney injury. EF was 40% by echo last week. Significantly improved after one dose Lasix IV Friday. Continue furosemide 20 mg daily. Creatinine is approaching baseline. KCL 40 mg p.o. x1 (3) Paroxysmal atrial fibrillation: Code(s): I48.0 - Paroxysmal atrial fibrillation Status: Acute Assessment and Plan: History of PAF,went into a fib RVR today. Improved after one dose IV amio. Continue carvedilol. Low BP is limiting choice of treatment. Trying to avoid amiodarone because INR is so high and amio will likely aggravate that. (4) Current use of skilled nursing anticoagulation: Code(s): Z79.01 - [facility] (current) use of anticoagulants Status: Acute Assessment and Plan: On warfarin for PAF. Resuming warfarin (5) Chronic shortness of breath: Code(s): R06.02 - Shortness of breath Status: Acute Assessment and Plan: Chronic SOB and congestion, has some underlying lung disease. May have a superimposed pneumonia and/or COPD exacerbation as well. Albuterol nebs help. COVID screen negative. (6) Acute kidney injury: Code(s): N17.9 - Acute kidney failure, unspecified Status: Acute Assessment and Plan: Baseline creat 1.6-1.7, up to 2.0 . Daily BMPs. (7) Constipation: Code(s): K59.00 - Constipation, unspecified Status: Acute Assessment and Plan: Laxatives. (8) CLL (chronic lymphocytic leukemia): Onset Date: Unknown Code(s): C91.10 - Chronic lymphocytic leukemia of B-cell type not having achieved remission Status: Acute Assessment and Plan: Diagnosed with chronic lymphocytic leukemia earlier in 2020, on chemotherapy, followed by Dr. Reynolds. Subjective Date/time seen: 01/24/21 10:10 Interval history: FELICITAS CAMPUZANOTEMI. Also: CAD, Paroxysmal A
--- NOTE | 2021-01-24 10:47 | PM.DS ---
DS: Admitting Diagnosis Admitting Diagnosis Admitting Diagnosis: Shortness of breath DS: Discharge Diagnosis Discharge Diagnosis (1) Rash and other nonspecific skin eruption: Code(s): R21 - Rash and other nonspecific skin eruption Status: Acute Assessment and Plan: Discontinued vancomycin and cefepime Rash is better cleared up. (2) Non-STEMI (non-ST elevated myocardial infarction): Code(s): I21.4 - Non-ST elevation (NSTEMI) myocardial infarction Status: Acute Assessment and Plan: Chest pain better, see cardiology recommendations Continue current cardiac medications, Pt has comorbidity for PCI, CLL, chronic kidney disease, and apparently small caliber coronary arteries. (3) Acute on chronic combined systolic and diastolic ACC/AHA stage C congestive heart failure: Code(s): I50.43 - Acute on chronic combined systolic (congestive) and diastolic (congestive) heart failure Status: Acute Assessment and Plan: Diuresing well pt to transition to oral lasix (4) Acute dyspnea: Code(s): R06.00 - Dyspnea, unspecified Status: Acute Assessment and Plan: Improved now. (5) Elevated troponin: Code(s): R77.8 - Other specified abnormalities of plasma proteins Status: Acute Assessment and Plan: NSTEMI Patient had a catheterization back in 2018 Apparently patient not a candidate for percutaneous coronary angioplasty (6) HTN (hypertension): Code(s): I10 - Essential (primary) hypertension Status: Acute Assessment and Plan: Well controlled (7) AICD (automatic cardioverter/defibrillator) present: Code(s): Z95.810 - Presence of automatic (implantable) cardiac defibrillator Status: Acute Assessment and Plan: Continue to monitor, discussed with cardiology (8) AVM (arteriovenous malformation) of colon: Code(s): K55.20 - Angiodysplasia of colon without hemorrhage Status: Acute Assessment and Plan: Continue to monitor. (9) Warfarin-induced coagulopathy: Code(s): D68.32 - Hemorrhagic disorder due to extrinsic circulating anticoagulants; T45.515A - Adverse effect of anticoagulants, initial encounter Status: Acute Assessment and Plan: Restart Coumadin DS: Summary Hospital Course Hospital Course: Pt admitted NSTEMI, no CP, pt had a bad rash on his chest. Pt has history of CLL/SLL. Sp chemotherapy. Pancytopenia, and AF. Pt is not a good candidate for PCI. Pt more stable now no chest pain no rash. Pt is able to be discharged home with follow up with DR Reynolds and cardiology. Time Spent with Patient Time attestation: Total time spent providing and/or coordinating discharge services:40 minutes on day of discharge Exam Narrative: Exam Narrative: Patient is laying in bed in no acute distress Const: Orientation/consciousness: patient oriented x3 Eyes: General: appearance normal, both eyes and all related structures Pupils: Equal, round and reactive pupils present Cardio: Rhythm: regular rhythm Heart sounds: S1 normal heart sound present and S2 normal heart sound present Neuro: General: patient oriented x3 and CN's II-XI intact bilaterally Cranial nerves: Yes CN's II-XII intact bilaterally and Yes Equal, round and reactive pupils present Cognition (Neuro): normal cognition Speech: normal speech Gait exam (Neuro): Normal gait present Motor exam (neuro): 5/5 motor strength present throughout Extrem: General: normal to inspection, full ROM, no joint enlargement and no pedal edema DS: Data Data Completed and Pending Labs on day of discharge: Labs from last 24 hours 01/24/21 01/24/21 05:12 05:12 WBC 1.4 L* RBC 2.30 L Hgb 7.7 L Hct 22.9 L MCV 99.6 MCH 33.5 MCHC 33.6 RDW 18.4 H Plt Count 105 L MPV 10.1 Sodium 133 L Potassium 3.7 Chloride 103 Carbon Dioxide 27 Anion Gap 3 L BUN 43 H Creatinine 1.80 H Estim Creat Clear
[2021-01-24] MEDS: POTASSIUM CHLORIDE 20 MEQ TABLET 40 MEQ PO (11:24)
[2021-01-24 12:08] LABS: INR 1.3; Prothrombin Time 17.2 Seconds (11.1-14.7)
[2021-01-24] MEDS: HEPARIN SOD FLUSH 500 UNITS/5 ML SYRINGE IV PUSH (13:13)
== END 2021-01-24 13:59 | disposition home or self-care (01) | DRG 280 ==
LOC: ANHED 01-20 03:00 → ANHIMU 01-20 04:47 → ANH3MED 01-24 10:40 → ANHIMU 01-26 13:59
PROVIDERS: Internal Medicine; Internal Medicine Cardiovascular Disease; Admitting Provider Internal Medicine; Emergency Provider Emergency Medicine; PCP Internal Medicine; Visit Provider Family Medicine
DX: I21.4 Non-ST elevation (NSTEMI) myocardial infarction (principal); I50.43 Acute on chronic combined systolic (congestive) and diastolic (congestive) heart failure; D61.810 Antineoplastic chemotherapy induced pancytopenia; N17.9 Acute kidney failure, unspecified; C91.10 Chronic lymphocytic leukemia of B-cell type not having achieved remission; I13.0 Hypertensive heart and chronic kidney disease with heart failure and stage 1 through stage 4 chronic kidney disease, or unspecified chronic kidney disease; D68.32 Hemorrhagic disorder due to extrinsic circulating anticoagulants; T45.515A Adverse effect of anticoagulants, initial encounter; D63.1 Anemia in chronic kidney disease; E11.22 Type 2 diabetes mellitus with diabetic chronic kidney disease; N18.9 Chronic kidney disease, unspecified; Z20.822 Contact with and (suspected) exposure to COVID-19; I48.0 Paroxysmal atrial fibrillation; D64.81 Anemia due to antineoplastic chemotherapy; T45.1X5A Adverse effect of antineoplastic and immunosuppressive drugs, initial encounter; K55.20 Angiodysplasia of colon without hemorrhage; R06.02 Shortness of breath; E78.00 Pure hypercholesterolemia, unspecified; K59.00 Constipation, unspecified; K74.60 Unspecified cirrhosis of liver; R21 Rash and other nonspecific skin eruption; Z95.828 Presence of other vascular implants and grafts; I25.2 Old myocardial infarction; Z71.89 Other specified counseling; Z77.090 Contact with and (suspected) exposure to asbestos; Z79.01 Long term (current) use of anticoagulants; Z79.82 Long term (current) use of aspirin; Z79.899 Other long term (current) drug therapy; Z85.828 Personal history of other malignant neoplasm of skin; Z87.891 Personal history of nicotine dependence; Z88.0 Allergy status to penicillin; Z95.810 Presence of automatic (implantable) cardiac defibrillator
CPT/HCPCS: 36415; 36600; 71045; 71250; 71275; 74176; 74177; 80048; 80053; 81001; 82805; 82948; 83605; 83735; 83880; 84484; 85025; 85027; 85610; 85730; 87040; 93005; 93306; 94640; 96365; 96375; 97110; 97116; 97161; 97165; 97535; 99285; A9270; C9803; J0282; J0692; J0780; J1642; J1940; J2270; J2405; J3370; J7030; Q5106; Q9967; U0003; U0005

== ENCOUNTER 2021-05-02 13:27 | Outpatient (RCR) | payer MEDICARE, SELFPAY ==
[2021-05-02 14:29] LABS: Prothrombin Time 22.3 Seconds (11.1-14.7)
== END 2021-07-17 12:27 | disposition home or self-care (01) ==
LOC: ANHLAB 13:27
PROVIDERS: PCP Internal Medicine; Visit Provider Internal Medicine Cardiovascular Disease
DX: I48.0 Paroxysmal atrial fibrillation (principal)
CPT/HCPCS: 36415; 85610

== ENCOUNTER 2022-06-05 08:02 | Inpatient (IN) | payer MEDICARE, SELFPAY ==
[2022-06-05] VITALS (8 sets, daily range): BP systolic 147–161; BP diastolic 42–100; PULSE 95–104; RESP 16–24; TEMP 35.5–36.6; O2SAT 89–97; BMI 23.3
--- NOTE | ~2022-06-05 | XR_ITS ---
EXAMINATION: XR chest 2V DATE: 06/05/2022 09:33 INDICATION: Dyspnea. TECHNIQUE: Frontal and lateral views of the chest were obtained. COMPARISON: Chest single view 01/20/2021, chest CT 01/20/2021 FINDINGS: There are chronic airspace opacities in right mid and lower lung zones. There is a stable s mall right pleural effusion. There are worsened airspace opacities in left mid and lower lung zones. A calcified left lung nodule is consistent with old granulomatous disease. No pneumothorax. Cardiomeg milla is noted. There is a left chest pacer/defibrillator with lead in right ventricle. There is a righ t internal jugular port with tip in superior vena cava. IMPRESSION: 1. Worsened airspace opacities in left mid and lower lung zones, likely pneumonia. 2. Stable small right pleural effusion. 3. Stable airspace opacities in right mid and lower lung zones, likely atelectasis without or with coreas perimposed pneumonia. 4. Cardiomegaly. Reviewed, dictated and finalized at location A. IMPRESSION: 1. Worsened airspace opacities in left mid and lower lung zones, likely pneumon ia. 2. Stable small right pleural effusion. 3. Stable airspace opacities in right mid and lower lung zones, likely atelecta sis without or with superimposed pneumonia. 4. Cardiomegaly.
--- NOTE | ~2022-06-05 | XR_ITS ---
EXAMINATION: XR chest 1V portable Exam Date/Time: 06/08/2022 14:20 CDT HISTORY: HYPOXIA Comparison: 06/07/2022. RESULT: Lines, tubes, and devices: Right implanted port, terminating in the SVC. Left chest AICD, intact nena d. Lungs and pleura: Slightly increased diffuse reticular pattern overlying otherwise unchanged opaciti es. Right costophrenic angle blunting. Cardiomediastinal silhouette: Stable. Other: No acute osseous or upper abdominal finding. IMPRESSION: Likely increasing interstitial edema overlying otherwise stable pulmonary opacities. Stable small rig ht pleural effusion. Reviewed, dictated and finalized at location K. IMPRESSION: Likely increasing interstitial edema overlying otherwise stable pulmonary opaci ties. Stable small right pleural effusion.
--- NOTE | ~2022-06-05 | US_ITS ---
EXAMINATION: US right upper quadrant DATE: 06/11/2022 11:30 INDICATION: Elevated liver function tests TECHNIQUE: Multiple grayscale and Doppler ultrasound images of the abdomen were obtained. COMPARISON: 01/20/2021 FINDINGS: The pancreatic head and body are normal in appearance. The pancreatic tail is not visualized. Liver has normal as coarsened echotexture with mild liver surface nodularity which is better appreciated on the prior CT consistent with provided history of cirrhosis. No liver lesion identified. No intrahepa tic biliary duct dilation suspected. Portal venous flow was seen in the hepatopetal, normal direction and has normal Doppler waveform. The gallbladder is normal in appearance. There is no cholelithiasi s. The common bile duct measures 3 mm, which is normal.. Sonographic Johnson sign was reported as nega tive by the commodity analyst. The visualized portion of the proximal aorta and inferior vena cava are norm al. Incidentally noted small right pleural effusion. IMPRESSION: 1. Coarsened hepatic echotexture with liver surface nodularity better appreciated on prior CT consist ent with cirrhosis. 2. Small right pleural effusion. Reviewed, dictated and finalized at location A. IMPRESSION: 1. Coarsened hepatic echotexture with liver surface nodularity better appreciat ed on prior CT consistent with cirrhosis. 2. Small right pleural effusion.
--- NOTE | ~2022-06-05 | XR_ITS ---
EXAMINATION: XR chest 1V portable DATE: 06/07/2022 06:00 INDICATION: Pneumonia. TECHNIQUE: A single frontal view of the chest was obtained. COMPARISON: Chest 2 views 06/05/2022 FINDINGS: There are airspace opacities in right mid and lower lung zones and all left lung zones. A c alcified left lung nodule and calcified mediastinal lymph nodes are consistent with old granulomatous disease. There is a small right pleural effusion. No pneumothorax. Cardiomegaly is noted. There is a left chest pacer/defibrillator with lead in right ventricle. There is a right internal jugular port with tip in superior vena cava. IMPRESSION: 1. Stable airspace opacities in left lung, consistent with pneumonia. 2. Stable airspace opacities in right mid and lower lung zones, consistent with atelectasis versus pn eumonia. 3. Stable small right pleural effusion. 4. Cardiomegaly. Reviewed, dictated and finalized at location A. IMPRESSION: 1. Stable airspace opacities in left lung, consistent with pneumonia. 2. Stable airspace opacities in right mid and lower lung zones, consistent with atelectasis versus pneumonia. 3. Stable small right pleural effusion. 4. Cardiomegaly.
--- NOTE | 2022-06-05 08:15 | ED.URI ---
HPI - URI/Sore Throat General Chief Complaint: Upper Respiratory Infection Stated Complaint: fever congestion chills Time Seen by Provider: 06/05/22 08:15 Source: patient and family Mode of arrival: ambulatory Limitations: no limitations History of Present Illness HPI Narrative: Patient is an 86-year-old male with a history of hypertension, hyperlipidemia, coronary artery disease, chronic anticoagulation with warfarin, AICD placement, CLL on active chemotherapy, presenting to the emergency department for evaluation of cough, fever, chills. Pt states he otherwise feels well. at bedside states that patient has had productive cough, subjective fevers as well as generalized weakness. She states that he is seeming to have significant difficulty with activities of daily living and has not been able to walk or eat much. She states his appetite was good yesterday. Patient is currently receiving weekly rituximab infusions. He is scheduled to have 1 tomorrow. Patient's oncologist is Dr. Reynolds. Patient denies history of COVID. He has received 2 [employer] vaccines for COVID. He denies recent sick contact. Related Data Home Medications Medication Instructions Recorded Confirmed aspirin 81 mg chewable tablet 81 mg PO DAILY 06/26/20 05/30/22 atorvastatin 10 mg tablet 10 mg PO DAILY 06/26/20 05/30/22 isosorbide mononitrate 30 mg 30 mg PO QAM 06/26/20 05/30/22 tablet,extended release 24 hr allopurinol 100 mg tablet 300 mg PO DAILY 12/21/20 05/30/22 carvedilol 6.25 mg tablet 6.25 mg PO BID 01/20/21 05/30/22 lidocaine-prilocaine 2.5 %-2.5 % 1 applic topical DAILY PRN pain 01/20/21 05/30/22 topical cream ondansetron HCl 8 mg tablet 8 mg PO Q8H PRN Nausea 01/20/21 05/30/22 warfarin 3 mg tablet 4 mg PO DAILY 01/20/21 06/05/22 ferrous sulfate 324 mg (65 mg 324 mg PO DAILY 12/12/21 05/30/22 iron) tablet,delayed release Allergies Allergy/AdvReac Type Severity Reaction Status Date / Time Penicillins Allergy Hives Verified 06/05/22 08:23 Review of Systems Review of Systems: CONSTITUTIONAL: Reports fever and chills EYES: Denies visual changes, redness, or discharge. ENT: Reports congestion CARDIOVASCULAR: Denies chest pain, palpitations, or edema. RESPIRATORY: Reports cough, dyspnea GASTROINTESTINAL: Denies abdominal pain, nausea, vomiting, or diarrhea. GENITOURINARY: Denies dysuria or hematuria. SKIN: Denies rash or itching. MUSCULOSKELETAL: Denies back pain, joint pain, or myalgia. NEUROLOGIC: Denies headache, numbness, reports generalized weakness PMFSH Past Medical History Medical History Acute [place] 2018 Acute on chronic combined systolic and diastolic ACC/AHA stage C congestive heart failure Asbestos exposure Atrial fibrillation AVM (arteriovenous malformation) of colon CAD (coronary artery disease) Cardiac catheterization 2018 showed multivessel CAD, treated medically. Chronic shortness of breath CLL (chronic lymphocytic leukemia) (Unknown) Current use of senior care anticoagulation Diet-controlled diabetes mellitus Erosive gastritis HTN (hypertension) Hypercholesterolemia Non-STEMI (non-ST elevated myocardial infarction) Paroxysmal atrial fibrillation Rectal bleeding Renal failure Skin cancer Surgical History Surgical History AICD (automatic cardioverter/defibrillator) present [employer] single lead ICD, implanted 2018? History of local excision of skin lesion History of thoracentesis Family History Family History (Updated 01/20/21 @ 10:05 by Sherrie Carter MD) Father Pneumonia Mother Acute myocardial infarction Son No problems noted. Social History Social History Social History: Patient lives at home with his , Thee, and his son. He also has a daughter. He wishes his to be his surrogate MDM. He wishes to
[2022-06-05 08:49] LABS: INR 3.4; Prothrombin Time 33.3 Seconds (11.1-14.7)
[2022-06-05 08:50] LABS: Partial Thromboplastin Time 63.1 SECONDS (22.3-36.8)
[2022-06-05 08:54] LABS: Estimated CRCL calculation 34 ml/min; Estimated Glomerular Filt Rate 52
[2022-06-05 09:14] LABS: SARS-CoV-2 RNA PCR Negative
[2022-06-05 09:23] LABS: Basophils Percent Auto 0.3 % (0.2-1.2); Eosinophils Percent Auto 0.1 % (0-4.4); Hematocrit 30.8 % (42.0-52.0); Hemoglobin 9.7 g/dL (14.0-18.0); Immature Granulocyte Absolute 0.41 K/mm3 (0.00-0.031); Lymphocytes Absolute Auto 4.44 K/mm3 (0.9-3.2); Mean Corpuscular HGB Conc 31.5 g/dl (32-36); Mean Corpuscular Hemoglobin 30.3 pg (26-34); Mean Corpuscular Volume 96.3 fl (80-100); Mean Platelet Volume 10.7 fl (7.4-10.4); Monocytes Absolute Auto 0.6 K/mm3 (0.1-0.6); Monocytes Percent Auto 8.5 % (2.6-8.5); Neutrophils Absolute Auto 1.4 K/mm3 (1.3-6.7); Neutrophils Percent Auto 20.1 % (45.5-73.1); Platelet Count Result 159 k/mm3 (150-375); Red Cell Distribution Width 17.8 % (11.5-14.5); White Blood Count 6.8 K/mm3 (4.5-10.0)
[2022-06-05 09:32] LABS: Lactic Acid Reflex 1.1 mmol/L (0.7-2.0)
[2022-06-05 09:48] LABS: Alanine Aminotransferase 36 U/L (6-50); Alkaline Phosphatase 241 U/L (38-126); Anion Gap 11 mmol/L (8-16); Aspartate Amino Transferase 52 U/L (17-59); Bilirubin,Total 1.3 mg/dL (0.2-1.3); Blood Urea Nitrogen 32 mg/dL (9-20); Calcium 8.2 mg/dL (8.4-10.2); Carbon Dioxide 24 mmol/L (22-30); Chloride 91 mmol/L (98-107); Estimated CRCL calculation 34 ml/min; Estimated Glomerular Filt Rate 52; Glucose 157 mg/dL (65-110); Potassium 4.1 mmol/L (3.4-5.0); Sodium 126 mmol/L (137-145)
[2022-06-05 09:52] LABS: Troponin I 0.017 ng/mL (0.000-0.034)
[2022-06-05 11:15] LABS: NT Pro B Type Natriuretic Pept 11500 pg/mL (5-100)
[2022-06-05 11:25] LABS: Appearance Urine Clear (Clear); Bilirubin Urine Negative (Negative); Blood Urine 1+ (Negative); Color Urine Yellow (Yellow); Glucose Urine UA Negative (Negative); Ketones Urine Negative (Negative); Leukocyte Esterase Ur Negative LEU/UL (Negative); Nitrate Urine Positive (Negative); Protein Urine 1+ mg/dL (Negative); Urobilinogen Urine 0.2 mg/dL (<2.0); pH Urine 5.5 (5.0-9.0)
[2022-06-05 11:31] LABS: Bacteria Urine Trace /hpf; Mucus Urine Rare /lpf; RBC Urine 0-2 /hpf (0-2); WBC Urine 0-3 /hpf
[2022-06-05 11:33] LABS: Add Urine Microscopic? YES
--- NOTE | 2022-06-05 11:51 | PC.NURSE ---
Pt tranferred to 327, RN at bedside and pt transferred to bed with assistance of RNS.
--- NOTE | 2022-06-05 14:05 | PM.IMHP ---
H&P: HPI History of Present Illness Date/Time: 06/05/22 14:05 Chief Complaint: Fever, congestion, cough, weakness Narrative: This is a very pleasant 86-year-old male with chronic lymphocytic leukemia, coronary artery disease, paroxysmal atrial fibrillation on chronic anticoagulation heart failure with reduced ejection fraction status post [employer] ICD implantation, hypertension, and hyperlipidemia who presented to the emergency department for evaluation of congestion, cough, fever, and weakness. About a month ago he was started on rituximab for his CLL and he is due tomorrow for his weekly infusion. Since starting treatment he has not had a great appetite and he reports a 20 lb weight loss in the last several months. He does try to stay hydrated and his has him drinking between 65 and 70 oz of water a day. The last 3 for 4 days he has not felt well with chills, weakness, chest congestion, and cough productive of yellowish and occasionally pink phlegm. His made him come in today. On arrival he was afebrile and his vital signs have been stable. Pertinent labs today include white blood cell count of 9.8, a stable hemoglobin of 9.7, INR 3.4, sodium 126, chloride 91, BUN 32, creatinine 1.30, proBNP 87342, and a CRP of 23. Chest x-ray showed a stable right pleural effusion and findings of pneumonia and he is being admitted in this setting. While in the ER he was given 2 L normal saline and he was started on antibiotics. At the time my evaluation he reports feeling ?a ton better? with the IV fluids. He is nauseated this time however and is not really hungry. He denies concerns for aspiration but does report occasional coughing and need to clear his throat with liquids. Review of Systems Review of Systems: Twelve systems were reviewed. No fever but he has had chills. No headache or neck ache. No sinus congestion or sore throat. He denies chest and pleuritic pain. No vomiting or diarrhea. He tends to suffer from constipation. Stools are always a bit dark secondary to iron. Except as documented, all other systems were reviewed and are negative. FORMERLY [facility], [facility] Past Medical History Medical History (Updated 06/05/22 @ 14:18 by Sulma Tolbert PA-C) Arteriovenous malformation of colon Asbestos exposure Atrial fibrillation Cardiac arrest (2018) Chronic anemia Chronic lymphocytic leukemia Patient of Dr. Aashish Reynolds. Receives weekly rituximab infusions. Combined systolic and diastolic congestive heart failure Echocardiogram in January 2021 showed an EF of 40% with mild LV enlargement, mildly dilated aortic root, mild AR/MR, and grade 1 diastolic dysfunction. Coronary artery disease Cardiac catheterization 2017 showed multivessel CAD, treated medically. Current use of long-term anticoagulation Diet-controlled diabetes mellitus Erosive gastritis Hypercholesterolemia Hypertension Myocardial infarction (2018) Nonsustained ventricular tachycardia Single-chamber [employer] ICD. Paroxysmal atrial fibrillation Skin cancer Surgical History Surgical History (Updated 06/05/22 @ 14:09 by Sulma Tolbert PA-C) History of implantable cardioverter-defibrillator (ICD) insertion [employer] single-chamber. History of local excision of skin lesion History of thoracentesis Family History Family History Father Pneumonia Mother Acute myocardial infarction Son No problems noted. Social History Social History (Updated 06/05/22 @ 14:13 by Sulma Tolbert PA-C) Social History: The patient lives in [place] with his . They have 2 children, a daughter and a son. He is retired from working at a [employer]. Occasional pipe, cigar, or chewing tobacco prior to 1973. He has not had alcohol in greater than 50 years. No illicit substance use. Surrogate medical decision maker: Thee Sargent () or Sharri Cruz (daughter). Code status: Full code. Spiritual care
[2022-06-05 15:33] LABS: Magnesium 1.8 mg/dL (1.6-2.3); Phosphorus 3.4 mg/dL (2.5-4.5); Sodium 120 mmol/L (137-145)
--- NOTE | 2022-06-05 15:42 | PC.NURSE ---
Provider notified of sodium lab results.
[2022-06-05 16:14] LABS: Procalcitonin 0.7 ng/mL
[2022-06-05 16:33] LABS: Thyroid Stimulating Hormone Reflex 0.486 uIU/mL (0.465-4.68)
[2022-06-05 17:36] LABS: Creatinine Urine 85.8 mg/dL
[2022-06-05 17:37] LABS: Sodium Urine Random 9 meq/L
[2022-06-05 18:55] LABS: Sodium 125 mmol/L (137-145)
[2022-06-05] MEDS: CENTRAL LINE FLUSH 10 ML IV PUSH (20:31)
[2022-06-05] MEDS: guaiFENesin 12 HR 600 MG TABCR PO (20:32)
[2022-06-05 22:16] LABS: Sodium 124 mmol/L (137-145)
[2022-06-05] MEDS: carvediloL 6.25 MG TABLET PO (22:40)
[2022-06-06 02:02] LABS: Sodium 122 mmol/L (137-145)
[2022-06-06 04:04] LABS: Sodium 121 mmol/L (137-145)
--- NOTE | 2022-06-06 04:42 | PM.EVENT ---
Event Note Event Note Event Note: Patient's sodium continues to drop, FeNa calculated at .11%, prerenal suspected, will give 1L bolus and reassess.
[2022-06-06 05:39] VITALS: BP 153/90; PULSE 104; RESP 20; TEMP 35.7; O2SAT 100
[2022-06-06] MEDS: SODIUM CHLORIDE 0.9% IV 1,000 ML 999 ML IV CONT (06:25)
[2022-06-06] MEDS: CENTRAL LINE FLUSH 10 ML IV PUSH ×2 (06:36→20:56)
[2022-06-06 06:49] LABS: Basophils Percent Auto 0.1 % (0.2-1.2); Eosinophils Percent Auto 0.1 % (0-4.4); Hemoglobin 9.5 g/dL (14.0-18.0); Immature Granulocyte Absolute 0.47 K/mm3 (0.00-0.031); Immature Granulocyte Percent A 6.8 % (0-0.5); Lymphocytes Absolute Auto 4.52 K/mm3 (0.9-3.2); Lymphocytes Percent Auto 65.2 % (18.3-44.2); Mean Corpuscular HGB Conc 32.8 g/dl (32-36); Mean Corpuscular Hemoglobin 31.1 pg (26-34); Mean Corpuscular Volume 95.1 fl (80-100); Mean Platelet Volume 10.6 fl (7.4-10.4); Monocytes Absolute Auto 0.3 K/mm3 (0.1-0.6); Monocytes Percent Auto 3.8 % (2.6-8.5); Neutrophils Absolute Auto 1.7 K/mm3 (1.3-6.7); Platelet Count Result 155 k/mm3 (150-375); Red Blood Count 3.05 M/mm3 (4.6-6.20); Red Cell Distribution Width 17.8 % (11.5-14.5); White Blood Count 6.9 K/mm3 (4.5-10.0)
[2022-06-06 06:56] LABS: Anion Gap 10 mmol/L (8-16); Blood Urea Nitrogen 32 mg/dL (9-20); Calcium 7.6 mg/dL (8.4-10.2); Carbon Dioxide 22 mmol/L (22-30); Chloride 94 mmol/L (98-107); Estimated CRCL calculation 37 ml/min; Estimated Glomerular Filt Rate 57; Glucose 128 mg/dL (65-110); Sodium 126 mmol/L (137-145)
[2022-06-06 07:25] LABS: Platelet Estimate Adequate (Adequate); Poikilocytosis 1+ (NORMAL); Smudge Cells PRESENT
[2022-06-06 07:26] LABS: INR 4.7
[2022-06-06 08:00] VITALS: PULSE 104; RESP 20; O2SAT 100
[2022-06-06] MEDS: ISOSORBIDE MONONITRATE 30 MG TAB.ER.24H PO (08:14)
[2022-06-06] MEDS: FERROUS SULFATE 324 MG TABLET PO (08:14)
[2022-06-06] MEDS: ATORVASTATIN 10 MG TABLET PO (08:14)
[2022-06-06] MEDS: ASPIRIN 81 MG CHEWABLE TABLET PO (08:14)
[2022-06-06] MEDS: guaiFENesin 12 HR 600 MG TABCR PO ×2 (08:15→20:53)
[2022-06-06] MEDS: carvediloL 6.25 MG TABLET PO ×2 (08:15→20:53)
[2022-06-06 09:49] LABS: Sodium 122 mmol/L (137-145)
--- NOTE | 2022-06-06 09:56 | PCSTNOTE ---
Attempted to see patient for bedside swallow evaluation (BSE). Upon entering room found patient upright in bed holding emesis bag filled with bloody (appearing) vomitus. Nursing notified. BSE not completed at this time. Will attempt later when patient is able to participate. Thank you for the referral of this patient.
[2022-06-06 12:30] LABS: Sodium 126 mmol/L (137-145)
--- NOTE | 2022-06-06 13:08 | PM.IMPN ---
Progress Note: A&P Assessment and Plan (1) Pneumonia: Code(s): J18.9 - Pneumonia, unspecified organism Status: Acute Assessment and Plan: He has been started on ceftriaxone and azithromycin for presumed community-acquired pneumonia. Brayan added. Speech therapist to see for a bedside swallow evaluation. BCx NGTD. Sputum culture ordered. Urinary antigens pending. Continue Mucinex. Encourage Cornet use. Wean O2 as toelrated. Start PT/OT. (2) Hyponatremia: Code(s): E87.1 - Hypo-osmolality and hyponatremia Status: Acute Assessment and Plan: Sodium last week was low mid 130s and was 126 on presentation. He received 2 L of normal saline and sodium dropped to 120 on repeat. Labs were drawn through his Port-A-Cath so possibly lab error. IV fluids stopped. Na back up to 126. Continue to monitor. (3) Combined systolic and diastolic congestive heart failure: Code(s): I50.40 - Unspecified combined systolic (congestive) and diastolic (congestive) heart failure Status: Acute Assessment and Plan: He has some edema of the extremities which he states to me that this is [place] [address]. IV fluids stopped. We are holding on diureses at this time but consider if he condition does not improve as expected. Repeat CXR in the morning. (4) Chronic lymphocytic leukemia: Code(s): C91.10 - Chronic lymphocytic leukemia of B-cell type not having achieved remission Status: Acute Assessment and Plan: Patient is on rituximab infusion for CLL. This is on hold due to ongoing infection. 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 Daily INR (6) Paroxysmal atrial fibrillation: Code(s): I48.0 - Paroxysmal atrial fibrillation Status: Acute Assessment and Plan: Clinically appears to be in normal sinus rhythm. Continue Coreg. INR supratherapeutic so Coumadin remains on hold. (7) Chronic anemia: Code(s): D64.9 - Anemia, unspecified Status: Acute Assessment and Plan: Hemoglobin/hematocrit stable in the 9-10 range on review of previous labs. Related to above. (8) Hypertension: Code(s): I10 - Essential (primary) hypertension Status: Acute Assessment and Plan: Blood pressures were reviewed and they are reasonable. Continue antihypertensives and monitor. Plan DVT prophylaxis: INR therapeutic Code status: Full Diet: Regular Subjective Date/time seen: 06/06/22 13:08 Interval history: 86yo male with HTN, CHF, pAFib on anticoagualtion and CLL on Rituxan here for congestion, cough and fever. Patient complains productive cough yellowish sputum occasional hemoptysis. He does have trace pedal edema and states this is been going to so the past day or so. Did have fever and chills prior to admission nothing since admission. He states he feels a lot better since admission. Exam Narrative: AF 96.3 153/90 104 20 100% 2L Gen - NARD lying semi-recumbent in bed Chest - inspiratory crackles bibasilar R>L. nml RR CV - RRR S1/S2 Abd - Soft, NT/ND, Positive BS Ext - trace pedal edema Psych - Nml mood and affect Skin - Warm and dry Objective Data Vital Signs Vital Signs: Vital Signs - 24 hr 06/05/22 14:00 06/05/22 22:00 06/05/22 20:00 Temperature 96.9 F L 95.9 F L Pulse Rate 95 100 100 Respiratory Rate 16 18 18 Blood Pressure 147/42 H 154/79 H Pulse Oximetry 97 96 96 Oxygen Delivery Nasal Cannula Oxygen Flow Rate 2 06/06/22 05:39 Temperature 96.3 F L Pulse Rate 104 H Respiratory Rate 20 Blood Pressure 153/90 H Pulse Oximetry 100 Oxygen Delivery Oxygen Flow Rate Intake/Output Intake/Output: Intake & Output 06/03/22 06/04/22 06/05/22 06/06/22 23:59
[2022-06-06 14:00] VITALS: BP 119/77; PULSE 95; RESP 18; TEMP 36; O2SAT 100
[2022-06-06 16:06] LABS: Sodium 125 mmol/L (137-145)
[2022-06-06 20:53] VITALS: PULSE 106
[2022-06-06 21:55] VITALS: BP 130/77; PULSE 103; RESP 20; TEMP 35.9; O2SAT 96
[2022-06-06 23:39] LABS: Anion Gap 7 mmol/L (8-16); Blood Urea Nitrogen 32 mg/dL (9-20); Calcium 7.1 mg/dL (8.4-10.2); Carbon Dioxide 21 mmol/L (22-30); Chloride 95 mmol/L (98-107); Estimated CRCL calculation 37 ml/min; Estimated Glomerular Filt Rate 57; Glucose 200 mg/dL (65-110); Potassium 3.8 mmol/L (3.4-5.0); Sodium 123 mmol/L (137-145)
[2022-06-07] VITALS (9 sets, daily range): BP systolic 115–130; BP diastolic 66–82; PULSE 72–94; RESP 17–22; TEMP 35.9–37.2; O2SAT 93–100
[2022-06-07] MEDS: CENTRAL LINE FLUSH 10 ML IV PUSH ×3 (05:05→21:30)
[2022-06-07 05:15] LABS: Hematocrit 27.6 % (42.0-52.0); Hemoglobin 8.9 g/dL (14.0-18.0); Mean Corpuscular HGB Conc 32.2 g/dl (32-36); Mean Corpuscular Hemoglobin 30.4 pg (26-34); Mean Corpuscular Volume 94.2 fl (80-100); Mean Platelet Volume 9.7 fl (7.4-10.4); Platelet Count Result 144 k/mm3 (150-375); Red Blood Count 2.93 M/mm3 (4.6-6.20); Red Cell Distribution Width 17.9 % (11.5-14.5); White Blood Count 6.5 K/mm3 (4.5-10.0)
[2022-06-07 05:27] LABS: Alanine Aminotransferase 52 U/L (6-50); Albumin Level 2.5 g/dL (3.5-5.1); Alkaline Phosphatase 186 U/L (38-126); Anion Gap 3 mmol/L (8-16); Aspartate Amino Transferase 83 U/L (17-59); Bilirubin,Total 0.6 mg/dL (0.2-1.3); Blood Urea Nitrogen 29 mg/dL (9-20); Carbon Dioxide 24 mmol/L (22-30); Chloride 96 mmol/L (98-107); Estimated CRCL calculation 37 ml/min; Estimated Glomerular Filt Rate 57; Glucose 132 mg/dL (65-110); Phosphorus 3.3 mg/dL (2.5-4.5); Potassium 4.1 mmol/L (3.4-5.0); Sodium 123 mmol/L (137-145)
[2022-06-07 06:00] LABS: Band Neutrophils Percent 6 % (0-6); Lymphocytes Absolute Manual 4.16 K/mm3 (1.1-4.5); Monocytes Absolute Manual 0.13 K/mm3 (0.1-0.90); Monocytes Percent Manual 2 % (3-9); Neutrophils Absolute Manual 2.21 K/mm3 (1.3-6.7); Neutrophils Percent Manual 28 % (46-73); Total Cells Counted 100
[2022-06-07 06:01] LABS: Hypochromasia 1+ (NORMAL); Large Platelets Present; Platelet Estimate Adequate (Adequate)
[2022-06-07 06:02] LABS: Anisocytosis 1+ (NORMAL); Atypical Lymphocytes Present; Poikilocytosis 1+ (NORMAL)
[2022-06-07] MEDS: ISOSORBIDE MONONITRATE 30 MG TAB.ER.24H PO (08:20)
[2022-06-07] MEDS: guaiFENesin 12 HR 600 MG TABCR PO ×2 (08:20→20:13)
[2022-06-07] MEDS: FERROUS SULFATE 324 MG TABLET PO (08:20)
[2022-06-07] MEDS: ATORVASTATIN 10 MG TABLET PO (08:20)
[2022-06-07] MEDS: ASPIRIN 81 MG CHEWABLE TABLET PO (08:20)
[2022-06-07] MEDS: FUROSEMIDE INJ 40 MG/4 ML VIAL 20 MG IV PUSH (08:20)
[2022-06-07] MEDS: carvediloL 6.25 MG TABLET PO ×2 (08:21→20:13)
[2022-06-07] MEDS: polyethylene glycoL 3350 17 GM POWD.PACK PO (08:55)
[2022-06-07 10:08] LABS: Sodium 128 mmol/L (137-145)
[2022-06-07 10:16] LABS: INR 5.6
[2022-06-07 13:50] LABS: Osmolality, Urine 516 mOsm/kg (50-1200)
--- NOTE | 2022-06-07 14:07 | PM.IMPN ---
Progress Note: A&P Assessment and Plan (1) Pneumonia: Code(s): J18.9 - Pneumonia, unspecified organism Status: Acute Assessment and Plan: He was started on ceftriaxone and azithromycin for presumed community-acquired pneumonia. Brayan added. Speech therapist saw for a bedside swallow evaluation and patient did well. BCx NGTD. Sputum culture ordered. Urinary antigens pending. Continue Mucinex. Encourage Cornet use. Good UOP with Lasix. Able to wean off O2. Contnue PT/OT. (2) Hyponatremia: Code(s): E87.1 - Hypo-osmolality and hyponatremia Status: Acute Assessment and Plan: Sodium last week was low mid 130s and was 126 on presentation. He received 2 L of normal saline and sodium dropped to 120 on repeat. Labs were drawn through his Port-A-Cath so possibly lab error. IV fluids stopped. Na at 123. Continue to monitor with serial Na. May improve with Lasix. (3) Combined systolic and diastolic congestive heart failure: Code(s): I50.40 - Unspecified combined systolic (congestive) and diastolic (congestive) heart failure Status: Acute Assessment and Plan: He has some edema of the extremities which he states to me that this is [place] [address]. IV fluids stopped. We held on diureses. Repeat CXR showing no change. Lasix once given with good UOP. Follow. (4) Chronic lymphocytic leukemia: Code(s): C91.10 - Chronic lymphocytic leukemia of B-cell type not having achieved remission Status: Acute Assessment and Plan: Patient is on rituximab infusion for CLL. This is on hold due to ongoing infection. 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 Some minor bleeding but nothing significnat. Daily INR (6) Paroxysmal atrial fibrillation: Code(s): I48.0 - Paroxysmal atrial fibrillation Status: Acute Assessment and Plan: Clinically appears to be in normal sinus rhythm. Continue Coreg. INR supratherapeutic so Coumadin remains on hold. (7) Chronic anemia: Code(s): D64.9 - Anemia, unspecified Status: Acute Assessment and Plan: Hemoglobin/hematocrit stable in the 9-10 range on review of previous labs. Related to above. (8) Hypertension: Code(s): I10 - Essential (primary) hypertension Status: Acute Assessment and Plan: Blood pressures were reviewed and they are reasonable. Continue antihypertensives and monitor. Plan DVT prophylaxis: INR therapeutic Code status: Full Diet: Regular Subjective Date/time seen: 06/07/22 14:07 Interval history: 86yo male with HTN, CHF, pAFib on anticoagualtion and CLL on Rituxan here for congestion, cough and fever. Shortness of breath is better. No chest pain or abdominal pain. Cough is much improved. He is off oxygen now. No nausea or vomiting. Eating well. Good urine output with the Lasix. Had epistaxis overnight. Complains of a little bit of bright red blood when wiping. Speech therapy did a bedside swallow and there were no issues. Exam Narrative: AF 96.7 130/82 91 18 95% ra Gen - NARD sitting up in a chair feeding himself lunch Chest -inspiratory and expiratory coarse rhonchi. CV - RRR S1/S2 Abd - Soft, NT/ND, Positive BS Ext - trace pedal edema Psych - Nml mood and affect Skin - Warm and dry Objective Data Vital Signs Vital Signs: Vital Signs - 24 hr 06/06/22 20:53 06/06/22 21:55 06/07/22 05:45 Temperature 96.6 F L 96.7 F L Pulse Rate 106 H 103 H 85 Respiratory Rate 20 18 Blood Pressure 130/77 130/82 Pulse Oximetry 96 100 Oxygen Delivery Oxygen Flow Rate 06/07/22 08:21 06/07/22 08:20 06/07/22 08:21 Temperature Pulse Rate 91 Respiratory Rate Blood Pressure Pulse Oximetry
--- NOTE | 2022-06-07 14:11 | PCSTNOTE ---
Patient fed self lunch consisting of regular texture food and thin liquids. Ate over 50% with no signs or symptoms of aspiration. Recommend continue current diet. Thank you for the referral of this patient.
[2022-06-07 18:00] LABS: Sodium 125 mmol/L (137-145)
--- NOTE | 2022-06-07 18:18 | PDONCCN ---
HPI - Date of Consult Date/Time: 06/07/22 18:18 Requesting Physician: Benny Ovalle MD Primary Care Provider: Miguel Baltazar, - Consult Narrative Reason for consult: Chronic lymphocytic leukemia Narrative: Trey Sargent is a 86 year old male with history of chronic lymphocytic leukemia status post chemotherapy in February of 2021. He restarted weekly treatment with Rituxan on May 02 for worsening of anemia. His last treatment was on May 30. He came into the hospital with generalized weakness along with cough and low-grade fever. He has been complaining of tiredness and fatigue and has lost more than 10 lb weight in last several months duration. Labs showed hemoglobin of 8.9 with normal WBC count and low platelet count of 026041. Sodium was low at 123. Calcium was also low at 7.0. Chest x-ray showed stable airspace opacity in the left lung consistent with pneumonia as well as opacities in the right mid and lower lung zone consistent with atelectasis versus pneumonia. He was started on Rocephin and Zithromax with some improvement. Review of Systems - Review of Systems All systems reviewed & are unremarkable except as noted in HPI and [facility] Medical History: Medical History (Last Updated 06/05/22 @ 14:18 by Sulma Tolbert PA-C) Arteriovenous malformation of colon Asbestos exposure Atrial fibrillation Cardiac arrest Onset Date: 2017 Chronic anemia Chronic lymphocytic leukemia Patient of Dr. Aashish Reynolds. Receives weekly rituximab infusions. Combined systolic and diastolic congestive heart failure Echocardiogram in January 2021 showed an EF of 40% with mild LV enlargement, mildly dilated aortic root, mild AR/MR, and grade 1 diastolic dysfunction. Coronary artery disease Cardiac catheterization 2018 showed multivessel CAD, treated medically. Current use of assisted anticoagulation Diet-controlled diabetes mellitus Erosive gastritis Hypercholesterolemia Hypertension Myocardial infarction Onset Date: 2018 Nonsustained ventricular tachycardia Single-chamber [employer] ICD. Paroxysmal atrial fibrillation Skin cancer Surgical History: Surgical History (Last Updated 06/05/22 @ 14:09 by Sulma Tolbert PA-C) History of implantable cardioverter-defibrillator (ICD) insertion [employer] single-chamber. History of local excision of skin lesion History of thoracentesis Family History: Family History (Last Reviewed 06/05/22 @ 14:09 by Sulma Tolbert PA-C) Father Pneumonia Mother Acute myocardial infarction Son No problems noted. - Social History Social History: Social History (Last Updated 06/05/22 @ 14:13 by Sulma Tolbert PA-C) Others: Spiritual care concerns: No Exam - Vital Signs Vital Signs - 24 hr 06/06/22 20:53 06/06/22 21:55 06/07/22 05:45 Temperature 35.9 C L 35.9 C L Pulse Rate 106 H 103 H 85 Respiratory Rate 20 18 Blood Pressure 130/77 130/82 Pulse Oximetry 96 100 Oxygen Delivery Oxygen Flow Rate 06/07/22 08:21 06/07/22 08:20 06/07/22 08:21 Temperature Pulse Rate 91 Respiratory Rate Blood Pressure Pulse Oximetry 95 Oxygen Delivery Nasal Cannula Nasal Cannula Oxygen Flow Rate 2 2 06/07/22 11:14 06/07/22 11:37 06/07/22 12:40 Temperature Pulse Rate Respiratory Rate Blood Pressure Pulse Oximetry 93 97 95 Oxygen Delivery Nasal Cannula Room Air Room Air Oxygen Flow Rate 2 06/07/22 14:17 06/07/22 14:00 Temperature 36.1 C L Pulse Rate 94 Respiratory Rate 22 H Blood Pressure 127/70 Pulse Oximetry 97 Oxygen Delivery Room Air Oxygen Flow Rate - Exam HEENT: EOMI, PERRLA, nares patent, sclera clear Neck: JVD, supple Lungs: clear to auscultation, normal air movement Heart: no murmurs, gallops, or rubs, regular rhythm, regular rate Abdomen: abdomen soft, non-distended, normal bowel sounds Extremities: normal pulses Integumentary: no abnormal
[2022-06-07 21:57] LABS: Pneumococcal Antigen Urine Not Detected (Not Detected)
[2022-06-07 22:33] LABS: Sodium 126 mmol/L (137-145)
[2022-06-07 22:36] LABS: Lactate Dehydrogenase 223 U/L (120-246)
[2022-06-07 22:44] LABS: Immunoglobulin A 166 mg/dL (70-400); Immunoglobulin G 724 mg/dL (700-1600); Immunoglobulin M 41 mg/dL (40-230)
[2022-06-07 23:34] LABS: Iron 29 ug/dL (49-181)
[2022-06-07 23:46] LABS: Folic Acid 7.1 ng/mL (2.76->20); Percent Iron Saturation 15 % (20-50); Vitamin B12 > 1000.0 pg/mL (239-931)
[2022-06-08] VITALS (7 sets, daily range): BP systolic 100–128; BP diastolic 53–80; PULSE 87–98; RESP 16–18; TEMP 36.6–37.3; O2SAT 94–98; BMI 24.7
[2022-06-08] MEDS: CENTRAL LINE FLUSH 10 ML IV PUSH ×3 (05:25→21:24)
[2022-06-08 05:49] LABS: Hematocrit 26.8 % (42.0-52.0); Hemoglobin 8.7 g/dL (14.0-18.0); Mean Corpuscular HGB Conc 32.5 g/dl (32-36); Mean Corpuscular Hemoglobin 30.4 pg (26-34); Mean Corpuscular Volume 93.7 fl (80-100); Mean Platelet Volume 9.7 fl (7.4-10.4); Platelet Count Result 145 k/mm3 (150-375); Red Blood Count 2.86 M/mm3 (4.6-6.20); Red Cell Distribution Width 17.5 % (11.5-14.5); White Blood Count 6.3 K/mm3 (4.5-10.0)
[2022-06-08 05:51] LABS: Prothrombin Time 47.7 Seconds (11.1-14.7)
[2022-06-08 05:57] LABS: Alanine Aminotransferase 56 U/L (6-50); Albumin Level 2.3 g/dL (3.5-5.1); Alkaline Phosphatase 183 U/L (38-126); Anion Gap 4 mmol/L (8-16); Aspartate Amino Transferase 78 U/L (17-59); Bilirubin,Total 0.8 mg/dL (0.2-1.3); Blood Urea Nitrogen 29 mg/dL (9-20); Carbon Dioxide 25 mmol/L (22-30); Chloride 100 mmol/L (98-107); Estimated CRCL calculation 44 ml/min; Estimated Glomerular Filt Rate > 60; Glucose 132 mg/dL (65-110); Potassium 3.5 mmol/L (3.4-5.0); Sodium 129 mmol/L (137-145)
[2022-06-08 06:23] LABS: INR 5.4
[2022-06-08] MEDS: ATORVASTATIN 10 MG TABLET PO (08:57)
[2022-06-08] MEDS: ASPIRIN 81 MG CHEWABLE TABLET PO (08:57)
[2022-06-08] MEDS: guaiFENesin 12 HR 600 MG TABCR PO ×2 (08:57→20:04)
[2022-06-08] MEDS: carvediloL 6.25 MG TABLET PO ×2 (08:57→20:04)
[2022-06-08] MEDS: FERROUS SULFATE 324 MG TABLET PO (08:57)
[2022-06-08] MEDS: ISOSORBIDE MONONITRATE 30 MG TAB.ER.24H PO (08:57)
--- NOTE | 2022-06-08 12:46 | PM.IMPN ---
Progress Note: A&P Assessment and Plan (1) Pneumonia: Code(s): J18.9 - Pneumonia, unspecified organism Status: Acute Assessment and Plan: He was started on ceftriaxone and azithromycin for presumed community-acquired pneumonia. Brayan added. Speech therapist saw for a bedside swallow evaluation and patient did well. BCx NGTD. Sputum culture NGTD. Urinary antigens pending. Continue Mucinex. Encourage Cornet use. Good UOP with Lasix. Able to wean off O2. Continue PT/OT. Repeat CXR. Home O2 evaluation. CXR showing increasing interstitial edema. Repeat lasix x1. (2) Hyponatremia: Code(s): E87.1 - Hypo-osmolality and hyponatremia Status: Acute Assessment and Plan: Sodium last week was low mid 130s and was 126 on presentation. He received 2 L of normal saline and sodium dropped to 120 on repeat. Labs were drawn through his Port-A-Cath so possibly lab error. IV fluids stopped. Na improved and even better after Lasix. Continue to monitor. (3) Combined systolic and diastolic congestive heart failure: Code(s): I50.40 - Unspecified combined systolic (congestive) and diastolic (congestive) heart failure Status: Acute Assessment and Plan: He has some edema of the extremities which he states [place] [address]. IV fluids stopped. We held on diureses initially but did receive Lasix x1 yesteray with good UOP. Clinically much better. Repeat CXR today. Consider repeating low dose Lasix. (4) Chronic lymphocytic leukemia: Code(s): C91.10 - Chronic lymphocytic leukemia of B-cell type not having achieved remission Status: Acute Assessment and Plan: Patient is on rituximab infusion for CLL. This is on hold due to ongoing infection. 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 Will continue to hold warfarin. Daily INR (6) Paroxysmal atrial fibrillation: Code(s): I48.0 - Paroxysmal atrial fibrillation Status: Acute Assessment and Plan: Clinically appears to be in normal sinus rhythm. Continue Coreg. INR supratherapeutic so Coumadin remains on hold. (7) Chronic anemia: Code(s): D64.9 - Anemia, unspecified Status: Acute Assessment and Plan: Hemoglobin/hematocrit stable in the 9-10 range on review of previous labs. hgb 8.7 today. Related to above? Continue to follow. (8) Hypertension: Code(s): I10 - Essential (primary) hypertension Status: Acute Assessment and Plan: Blood pressures were reviewed and are reasonable. Continue antihypertensives and monitor. Plan DVT prophylaxis: INR therapeutic Code status: Full Diet: Regular Subjective Date/time seen: 06/08/22 12:46 Interval history: 86yo male with HTN, CHF, pAFib on anticoagualtion and CLL on Rituxan here for congestion, cough and fever. Did well with therapy today. He has been walking in the room to the door way. Eating well. Cough is improving. Cough is productive of clear sputum. Mild hypoxia noted with ambulation. Exam Narrative: AF 99.1 128/79 98 18 96% ra Gen - NARD sitting up in a chair Chest -mildly coarse inspiratory and expiratory breath sounds. Normal respiratory rate. No conversational dyspnea CV - RRR S1/S2 Abd - Soft, NT/ND, Positive BS Ext - trace pedal edema Psych - Nml mood and affect Skin - Warm and dry Objective Data Vital Signs Vital Signs: Vital Signs - 24 hr 06/07/22 14:17 06/07/22 14:00 06/07/22 20:13 Temperature 96.9 F L Pulse Rate 94 86 Respiratory Rate 22 H Blood Pressure 127/70 Pulse Oximetry 97 Oxygen Delivery Room Air Oxygen Flow Rate 06/07/22 20:00 06/07/22 22:00 06/07/22 21:25 Temperature 98.9 F Pulse Rate 72 Respiratory Rate 17 Blood Pressure 115/66 Pu
[2022-06-08] MEDS: AZITHROMYCIN 250 MG TABLET PO (17:21)
[2022-06-08] MEDS: FUROSEMIDE INJ 40 MG/4 ML VIAL 20 MG IV PUSH (17:55)
[2022-06-09] VITALS (7 sets, daily range): BP systolic 109–130; BP diastolic 68–73; PULSE 82–105; RESP 16–18; TEMP 36.4–36.9; O2SAT 94–98
[2022-06-09 05:00] LABS: Legionella pneumophila Ag Ur Not Detected (Not Detected)
[2022-06-09] MEDS: CENTRAL LINE FLUSH 10 ML IV PUSH ×3 (05:10→20:50)
[2022-06-09 05:21] LABS: Basophils Percent Auto 0.3 % (0.2-1.2); Eosinophils Percent Auto 0.5 % (0-4.4); Hematocrit 26.7 % (42.0-52.0); Hemoglobin 8.5 g/dL (14.0-18.0); Immature Granulocyte Absolute 0.26 K/mm3 (0.00-0.031); Lymphocytes Absolute Auto 4.67 K/mm3 (0.9-3.2); Mean Corpuscular HGB Conc 31.8 g/dl (32-36); Mean Corpuscular Hemoglobin 30.5 pg (26-34); Mean Corpuscular Volume 95.7 fl (80-100); Monocytes Absolute Auto 0.4 K/mm3 (0.1-0.6); Monocytes Percent Auto 5.7 % (2.6-8.5); Neutrophils Absolute Auto 1.1 K/mm3 (1.3-6.7); Neutrophils Percent Auto 17.5 % (45.5-73.1); Platelet Count Result 149 k/mm3 (150-375); Red Blood Count 2.79 M/mm3 (4.6-6.20); Red Cell Distribution Width 17.6 % (11.5-14.5); White Blood Count 6.5 K/mm3 (4.5-10.0)
[2022-06-09 05:34] LABS: INR 3.7; Prothrombin Time 35.8 Seconds (11.1-14.7)
[2022-06-09 05:37] LABS: Alanine Aminotransferase 82 U/L (6-50); Albumin Level 2.3 g/dL (3.5-5.1); Alkaline Phosphatase 248 U/L (38-126); Anion Gap 5 mmol/L (8-16); Aspartate Amino Transferase 112 U/L (17-59); Bilirubin,Total 0.8 mg/dL (0.2-1.3); Blood Urea Nitrogen 38 mg/dL (9-20); Calcium 7.8 mg/dL (8.4-10.2); Carbon Dioxide 30 mmol/L (22-30); Chloride 97 mmol/L (98-107); Estimated CRCL calculation 40 ml/min; Estimated Glomerular Filt Rate > 60; Glucose 131 mg/dL (65-110); Potassium 3.4 mmol/L (3.4-5.0); Sodium 132 mmol/L (137-145)
[2022-06-09] MEDS: FUROSEMIDE INJ 40 MG/4 ML VIAL 20 MG IV PUSH ×2 (08:31→17:28)
[2022-06-09] MEDS: carvediloL 6.25 MG TABLET PO ×2 (08:32→20:49)
[2022-06-09] MEDS: ISOSORBIDE MONONITRATE 30 MG TAB.ER.24H PO (08:32)
[2022-06-09] MEDS: ASPIRIN 81 MG CHEWABLE TABLET PO (08:33)
[2022-06-09] MEDS: ATORVASTATIN 10 MG TABLET PO (08:33)
[2022-06-09] MEDS: FERROUS SULFATE 324 MG TABLET PO (08:33)
[2022-06-09] MEDS: guaiFENesin 12 HR 600 MG TABCR PO ×2 (08:33→20:49)
[2022-06-09] MEDS: POTASSIUM CHLORIDE 20 MEQ TABLET PO (10:11)
--- NOTE | 2022-06-09 11:08 | PCRCNOTE ---
Home O2 evaluation done. Pt does not require home oxygen at this time.
--- NOTE | 2022-06-09 16:41 | PM.IMPN ---
Progress Note: A&P Assessment and Plan (1) Pneumonia: Code(s): J18.9 - Pneumonia, unspecified organism Status: Acute Assessment and Plan: He was started on ceftriaxone and azithromycin for presumed community-acquired pneumonia. Brayan added. Speech therapist saw for a bedside swallow evaluation and patient did well. BCx NGTD. Sputum culture NGTD. Urinary antigens negative. CXR showing increasing interstitial edema. Lasix IV started. Continue Mucinex. Encourage Cornet use. Good UOP with Lasix. Able to wean off O2. Continue PT/OT. Change to oral lasix tomorrow. Change to Doxycycline. Continue Rocephin for now. (2) Hyponatremia: Code(s): E87.1 - Hypo-osmolality and hyponatremia Status: Acute Assessment and Plan: Sodium was 126 on presentation. He received 2 L of normal saline and sodium dropped to 120 on repeat. Labs were drawn through his Port-A-Cath so possibly lab error. IV fluids stopped. Na improving with Lasix. Continue to monitor. (3) Combined systolic and diastolic congestive heart failure: Code(s): I50.40 - Unspecified combined systolic (congestive) and diastolic (congestive) heart failure Status: Acute Assessment and Plan: He has some edema of the extremities which he states [place] [address]. IV fluids stopped. We initially held on diureses. Low dose Lasix was started with good UOP and renal function tolerating this. Clinically much better but the repeat CXR 06/08 showing worsening pulmonary interstitial edema. Continue Lasix. Probably home with low dose Lasix or Lasix prn. (4) Chronic lymphocytic leukemia: Code(s): C91.10 - Chronic lymphocytic leukemia of B-cell type not having achieved remission Status: Acute Assessment and Plan: Patient is on rituximab infusion for CLL. This is on hold due to ongoing infection. 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 Will resume warfarin today. Continue daily INR (6) Paroxysmal atrial fibrillation: Code(s): I48.0 - Paroxysmal atrial fibrillation Status: Acute Assessment and Plan: Clinically appears to be in normal sinus rhythm. Continue Coreg. INR supratherapeutic but better so will resume Coumadin. Contineu daily INR (7) Chronic anemia: Code(s): D64.9 - Anemia, unspecified Status: Acute Assessment and Plan: Hemoglobin/hematocrit stable in the 9-10 range on review of previous labs. hgb 8.5 today (related to his treatments?). Continue to follow. (8) Hypertension: Code(s): I10 - Essential (primary) hypertension Status: Acute Assessment and Plan: Blood pressures were reviewed and are reasonable. Continue antihypertensives and monitor. Plan Elevatd LFTs - LFTs worse today. Related to hepatic congestion? or from sepsis?. Hep B surface Ag and Ab negative. Will follow for now. Check HepC. DVT prophylaxis: INR therapeutic Code status: Full Diet: Regular Subjective Date/time seen: 06/09/22 16:41 Interval history: 86yo male with HTN, CHF, pAFib on anticoagualtion and CLL on Rituxan here for congestion, cough and fever. Patient did have an episode of black sputum which he has had in the past. Walking today with therapy in the room. He is passing flatus. No nausea or vomiting. Eating okay. Voiding well. Exam Narrative: AF 98.2 115/71 94 16 98% ra Gen - NARD sitting up in a chair Chest - BS less course today. CV - RRR S1/S2 Abd - Soft, NT/ND, Positive BS Ext - trace periankle edema Psych - Nml mood and affect. Neuro - speech is clearer Skin - Warm and dry Objective Data Vital Signs Vital Signs: Vital Signs - 24 hr 06/08/22 20:04 06/08/22 20:00 06/08/22 21:36 Temperature Pulse Rate
[2022-06-09] MEDS: AZITHROMYCIN 250 MG TABLET PO (17:29)
[2022-06-09] MEDS: WARFARIN (*PBKC) 2 MG TABLET PO (17:38)
[2022-06-09] MEDS: DOXYCYCLINE HYCLATE 100 MG TABLET PO (20:50)
[2022-06-10] MEDS: CENTRAL LINE FLUSH 10 ML IV PUSH ×3 (04:52→21:37)
[2022-06-10 05:10] LABS: Basophils Percent Auto 0.2 % (0.2-1.2); Eosinophils Absolute Auto 0.1 K/mm3 (0-0.3); Eosinophils Percent Auto 0.6 % (0-4.4); Hematocrit 28.1 % (42.0-52.0); Hemoglobin 8.9 g/dL (14.0-18.0); Immature Granulocyte Absolute 0.19 K/mm3 (0.00-0.031); Immature Granulocyte Percent A 2.3 % (0-0.5); Lymphocytes Absolute Auto 5.77 K/mm3 (0.9-3.2); Lymphocytes Percent Auto 71.1 % (18.3-44.2); Mean Corpuscular HGB Conc 31.7 g/dl (32-36); Mean Corpuscular Hemoglobin 30.3 pg (26-34); Mean Corpuscular Volume 95.6 fl (80-100); Mean Platelet Volume 9.9 fl (7.4-10.4); Monocytes Absolute Auto 0.8 K/mm3 (0.1-0.6); Monocytes Percent Auto 9.6 % (2.6-8.5); Neutrophils Absolute Auto 1.3 K/mm3 (1.3-6.7); Neutrophils Percent Auto 16.2 % (45.5-73.1); Platelet Count Result 161 k/mm3 (150-375); Red Blood Count 2.94 M/mm3 (4.6-6.20); Red Cell Distribution Width 17.9 % (11.5-14.5); White Blood Count 8.1 K/mm3 (4.5-10.0)
[2022-06-10 05:17] LABS: INR 2.8; Prothrombin Time 28.4 Seconds (11.1-14.7)
[2022-06-10 05:32] LABS: Alanine Aminotransferase 88 U/L (6-50); Albumin Level 2.4 g/dL (3.5-5.1); Alkaline Phosphatase 294 U/L (38-126); Anion Gap 4 mmol/L (8-16); Aspartate Amino Transferase 125 U/L (17-59); Bilirubin,Total 0.8 mg/dL (0.2-1.3); Blood Urea Nitrogen 42 mg/dL (9-20); Calcium 8.1 mg/dL (8.4-10.2); Carbon Dioxide 33 mmol/L (22-30); Chloride 93 mmol/L (98-107); Estimated CRCL calculation 34 ml/min; Estimated Glomerular Filt Rate 52; Glucose 134 mg/dL (65-110); Potassium 3.5 mmol/L (3.4-5.0); Sodium 130 mmol/L (137-145)
[2022-06-10 06:00] VITALS: BP 105/73; PULSE 95; RESP 20; TEMP 36.4; O2SAT 96
[2022-06-10 06:07] LABS: HAV RESULT Negative (Negative)
[2022-06-10 06:20] LABS: Hepatitis C Virus Antibody Negative (Negative)
[2022-06-10] MEDS: guaiFENesin 12 HR 600 MG TABCR PO ×2 (08:10→21:37)
[2022-06-10] MEDS: ASPIRIN 81 MG CHEWABLE TABLET PO (08:10)
[2022-06-10] MEDS: ATORVASTATIN 10 MG TABLET PO (08:10)
[2022-06-10] MEDS: DOXYCYCLINE HYCLATE 100 MG TABLET PO ×2 (08:10→21:37)
[2022-06-10 08:11] VITALS: PULSE 84
[2022-06-10] MEDS: carvediloL 6.25 MG TABLET PO ×2 (08:11→21:37)
[2022-06-10] MEDS: ISOSORBIDE MONONITRATE 30 MG TAB.ER.24H PO (08:11)
[2022-06-10] MEDS: FUROSEMIDE 20 MG TABLET PO (08:15)
[2022-06-10] MEDS: polyethylene glycoL 3350 17 GM POWD.PACK PO (11:10)
[2022-06-10] MEDS: FERROUS SULFATE 324 MG TABLET PO (11:55)
--- NOTE | 2022-06-10 12:05 | PM.IMPN ---
Progress Note: A&P Assessment and Plan (1) Pneumonia: Code(s): J18.9 - Pneumonia, unspecified organism Status: Acute Assessment and Plan: He was started on ceftriaxone and azithromycin for presumed community-acquired pneumonia. Brayan added. Speech therapist saw for a bedside swallow evaluation and patient did well. BCx NGTD. Sputum culture NGTD. Urinary antigens negative. CXR showing increasing interstitial edema. Lasix IV started. He completed Azithro. Continue Mucinex. Encourage Cornet use. Good UOP with Lasix. Able to wean off O2. Continue PT/OT. Change to oral lasix. Continue Rocephin for now with plans for home with Doxy monotherapy. (2) Hyponatremia: Code(s): E87.1 - Hypo-osmolality and hyponatremia Status: Acute Assessment and Plan: Sodium was 126 on presentation. He received 2 L of normal saline and sodium dropped to 120 on repeat. Labs were drawn through his Port-A-Cath so possibly lab error. IV fluids stopped. Na improved to the low 130's with Lasix. Continue to monitor. (3) Combined systolic and diastolic congestive heart failure: Code(s): I50.40 - Unspecified combined systolic (congestive) and diastolic (congestive) heart failure Status: Acute Assessment and Plan: He has some edema of the extremities which he states [place] [address]. IV fluids stopped. Clinically much better but the repeat CXR 06/08 showing worsening pulmonary interstitial edema. Low dose Lasix was eventually started with good UOP and renal function tolerated this. Continue Lasix and change to oral. Probably home with low dose Lasix or Lasix prn. (4) Chronic lymphocytic leukemia: Code(s): C91.10 - Chronic lymphocytic leukemia of B-cell type not having achieved remission Status: Acute Assessment and Plan: Patient is on rituximab infusion for CLL. This is on hold due to ongoing infection. 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 INR dropped to 3.7 and warfarin resumed. INR 2.8 today. Continue daily INR (6) Paroxysmal atrial fibrillation: Code(s): I48.0 - Paroxysmal atrial fibrillation Status: Acute Assessment and Plan: Clinically appears to be in normal sinus rhythm. Continue Coreg. INR therapeutic now. Continue Coumadin. Continue daily INR (7) Chronic anemia: Code(s): D64.9 - Anemia, unspecified Status: Acute Assessment and Plan: Hemoglobin/hematocrit stable in the 9-10 range on review of previous labs. hgb 8.9 today (related to his treatments?). Continue to follow. (8) Hypertension: Code(s): I10 - Essential (primary) hypertension Status: Acute Assessment and Plan: Blood pressures were reviewed on 06/10 and are reasonable. Continue antihypertensives and monitor. Plan Elevatd LFTs - LFTs worse today. Related to hepatic congestion? or from sepsis?. Hep B surface Ag and Ab negative. HepC and HepA negative. Possibly from Rituxan?. RUQ US ordered. Home if levels are flat. DVT prophylaxis: INR therapeutic Code status: Full Diet: Regular Subjective Date/time seen: 06/10/22 12:05 Interval history: 86yo male with HTN, CHF, pAFib on anticoagualtion and CLL on Rituxan here for congestion, cough and fever. Patient is voiding normally. Denies any shortness of breath or chest pain. Cough is better. He is up walking to the bathroom. No abdominal pain. Exam Narrative: AF 97.5 105/73 84 20 96% ra Gen - NARD Chest -few basilar crackles. Improved air exchange. Right upper chest Port-A-Cath access. CV - RRR S1/S2 Abd - Soft, NT/ND, Positive BS Ext - trace periankle edema Psych - Nml mood and affect. Skin - Warm and dry Objective Data Vital Signs Vital Signs: Vital Signs - 24 hr
[2022-06-10 12:57] LABS: Lipase 141 U/L (23-300)
[2022-06-10 14:00] VITALS: BP 100/61; PULSE 82; RESP 16; TEMP 36.3; O2SAT 98
[2022-06-10] MEDS: WARFARIN (*PBKC) 4 MG TABLET PO (17:20)
[2022-06-10 21:37] VITALS: PULSE 74
[2022-06-10] MEDS: MENTHOL 10% / METHYL SALICYLATE 15% 57 GM TUBE 1 APPLIC TOPICAL (21:38)
[2022-06-10 22:00] VITALS: BP 125/83; PULSE 100; RESP 18; TEMP 36.2; O2SAT 97
[2022-06-11] MEDS: CENTRAL LINE FLUSH 10 ML IV PUSH (05:35)
[2022-06-11 06:00] VITALS: BP 122/68; PULSE 89; RESP 16; TEMP 36.5; O2SAT 97
[2022-06-11 06:02] LABS: Basophils Percent Auto 0.3 % (0.2-1.2); Eosinophils Absolute Auto 0.1 K/mm3 (0-0.3); Eosinophils Percent Auto 0.9 % (0-4.4); Hematocrit 27.6 % (42.0-52.0); Hemoglobin 8.8 g/dL (14.0-18.0); Immature Granulocyte Absolute 0.24 K/mm3 (0.00-0.031); Immature Granulocyte Percent A 3.5 % (0-0.5); Lymphocytes Absolute Auto 4.89 K/mm3 (0.9-3.2); Lymphocytes Percent Auto 71.9 % (18.3-44.2); Mean Corpuscular HGB Conc 31.9 g/dl (32-36); Mean Corpuscular Hemoglobin 30.8 pg (26-34); Mean Corpuscular Volume 96.5 fl (80-100); Mean Platelet Volume 10.4 fl (7.4-10.4); Monocytes Absolute Auto 0.6 K/mm3 (0.1-0.6); Monocytes Percent Auto 9.1 % (2.6-8.5); Neutrophils Percent Auto 14.3 % (45.5-73.1); Platelet Count Result 155 k/mm3 (150-375); Red Blood Count 2.86 M/mm3 (4.6-6.20); White Blood Count 6.8 K/mm3 (4.5-10.0)
[2022-06-11 06:11] LABS: Alanine Aminotransferase 76 U/L (6-50); Albumin Level 2.3 g/dL (3.5-5.1); Alkaline Phosphatase 269 U/L (38-126); Anion Gap 12 mmol/L (8-16); Aspartate Amino Transferase 83 U/L (17-59); Bilirubin,Total 0.7 mg/dL (0.2-1.3); Blood Urea Nitrogen 35 mg/dL (9-20); Calcium 7.8 mg/dL (8.4-10.2); Carbon Dioxide 31 mmol/L (22-30); Chloride 91 mmol/L (98-107); Estimated CRCL calculation 34 ml/min; Estimated Glomerular Filt Rate 52; Glucose 130 mg/dL (65-110); INR 2.8; Potassium 3.5 mmol/L (3.4-5.0); Prothrombin Time 28.4 Seconds (11.1-14.7); Sodium 134 mmol/L (137-145)
[2022-06-11 08:00] VITALS: O2SAT 97
--- NOTE | 2022-06-11 10:24 | PCNFU ---
Nutrition Follow-Up Complete: Suboptimal po intake related to reduced appetite as evidenced by pt report and charted varied intake of meals. Goal: PO intake 75% or greater for meals. Pt is meeting current goal. Continue with same goal Pt current nutrition is Regular, Ensure Enlive BID. Nutrition recommendation: Continue with current plan of care. Last recorded weight is 67.3 kg - stable at this time. Bowel Motility: +BM 06/11 Labs Reviewed: Hgb:8.8, HCT:27.6, Alb:2.3, NA:134, GFR:52, BUN:35, glu:130 Meds Noted: miralax, lipitor, coumadin, lasix Skin: Small open area to coccyx Additional Notes: Pt continues on regular diet, intake improved to 75-100%. Ensure Enlive in place BID. Agree with diet orders. Monitor intake, wt, skin, labs. Follow up in 7 days.
[2022-06-11] MEDS: ATORVASTATIN 10 MG TABLET PO (11:35)
[2022-06-11] MEDS: ASPIRIN 81 MG CHEWABLE TABLET PO (11:35)
[2022-06-11 11:36] VITALS: PULSE 80
[2022-06-11] MEDS: ISOSORBIDE MONONITRATE 30 MG TAB.ER.24H PO (11:36)
[2022-06-11] MEDS: DOXYCYCLINE HYCLATE 100 MG TABLET PO (11:36)
[2022-06-11] MEDS: guaiFENesin 12 HR 600 MG TABCR PO (11:36)
[2022-06-11] MEDS: FUROSEMIDE 20 MG TABLET PO (11:36)
[2022-06-11] MEDS: carvediloL 6.25 MG TABLET PO (11:36)
[2022-06-11] MEDS: polyethylene glycoL 3350 17 GM POWD.PACK PO (12:10)
--- NOTE | 2022-06-11 13:42 | PM.DS ---
DS: Admitting Diagnosis Discharge Date 06/11/22 Admitting Diagnosis Fever and cough DS: Discharge Diagnosis Discharge Diagnosis (1) Pneumonia: Code(s): J18.9 - Pneumonia, unspecified organism Status: Acute (2) Hyponatremia: Code(s): E87.1 - Hypo-osmolality and hyponatremia Status: Acute (3) Combined systolic and diastolic congestive heart failure: Code(s): I50.40 - Unspecified combined systolic (congestive) and diastolic (congestive) heart failure Status: Acute (4) Chronic lymphocytic leukemia: Code(s): C91.10 - Chronic lymphocytic leukemia of B-cell type not having achieved remission Status: Acute (5) 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 on anticoagulation and CLL on Rituxan here for congestion, cough and fever. Please see H&P for details Hospital Course: He was started on ceftriaxone and azithromycin for presumed community-acquired pneumonia. Brayan added. Speech therapist saw for a bedside swallow evaluation and patient did well. BCx negative Sputum culture NGTD. Urinary antigens negative. CXR showing increasing interstitial edema. Lasix IV started. He completed Azithro. Good UOP with Lasix. Able to wean off O2. He worked with PT/OT. Sodium was 126 on presentation. He received 2 L of normal saline and sodium dropped to 120 on repeat. Labs were drawn through his Port-A-Cath so possibly lab error. IV fluids stopped. Na improved to the low 130's with Lasix. He has some edema of the extremities which he states is new.? [place] [address]. Clinically much better but the repeat CXR 06/08 showing worsening pulmonary interstitial edema. Low dose Lasix was eventually started with good UOP and renal function tolerated this. Patient is on rituximab infusion for CLL.? This is on hold due to ongoing infection. INR was supratherapeutic and peaked at 5.6. Coumadiin held and INR dropped to 3.7; warfarin resumed.? INR 2.8 today. Heart rate remained stable. We continued Coreg.? Hemoglobin/hematocrit stable in the 9-10 range on review of previous labs. Hgb here was mostly in the 8 range felt related to treatments. Patient hald elevated LFTs. Related to hepatic congestion? or from sepsis?. Hep B surface Ag and Ab were negative. HepC Ab and HepA IgM also negative. Possibly from Rituxan. RUQ US showing cirrhosis. He was a heavy drinker when he was young but nothing since. This has been seen in the past. Liver enzymes trended downward. Patient overall did well was able be discharged home on 06/11/2022. Status at Discharge Cognitive/behavioral status at discharge: Stable Time Spent with Patient Time attestation: Total time spent providing and/or coordinating discharge services:35 minutes Time spent: Greater than 30 minutes Exam Narrative: AF 97.7 122/68 80 16 97% ra Gen - NARD Chest - mildly coarse BS. nml RR CV - RRR S1/S2 Abd - Soft, NT/ND, Positive BS Ext - trace periankle edema Psych - Nml mood and affect. Skin - Warm and dry DS: Data Data Completed and Pending Labs on day of discharge: Labs from last 24 hours 06/11/22 06/11/22 06/11/22 05:28 05:28 05:28 WBC 6.8 RBC 2.86 L Hgb 8.8 L Hct 27.6 L MCV 96.5 MCH 30.8 MCHC 31.9 L RDW 18.0 H Plt Count 155 MPV 10.4 Immature Gran % (Auto) 3.5 H Neut % (Auto) 14.3 L Lymph % (Auto) 71.9 H Blount % (Auto) 9.1 H Eos % (Auto) 0.9 Baso % (Auto) 0.3 Lymph # (Auto) 4.89 H Blount # (Auto) 0.6 Eos
[2022-06-11 14:00] VITALS: BP 115/63; PULSE 88; RESP 18; TEMP 36.6; O2SAT 100
--- NOTE | 2022-06-11 14:46 | PCWOUND ---
CWON NOTE Patient being discharged today. Spoke with patients RN Dayan who states patient has maceration/shearing to buttocks and has orders for antifungal barrier cream. No need to see patient.
[2022-06-11 21:03] LABS: Mycoplasma IgM Antibody Titer 0 U/mL (<770)
--- NOTE | 2022-06-13 07:21 | PC.NURSE ---
Mycoplasma is zero. Dr. Díaz aware.
== END 2022-06-11 15:53 | disposition home health service (06) | DRG 193 ==
LOC: ANHED 08:41 → ANH3MEDSUR 11:42
PROVIDERS: Internal Medicine Hematology & Oncology; Nurse Practitioner; Physician Assistant; Admitting Provider Family Medicine; Emergency Provider Emergency Medicine; PCP Internal Medicine; Visit Provider Internal Medicine
DX: J18.9 Pneumonia, unspecified organism (principal); I50.43 Acute on chronic combined systolic (congestive) and diastolic (congestive) heart failure; E87.1 Hypo-osmolality and hyponatremia; C91.10 Chronic lymphocytic leukemia of B-cell type not having achieved remission; I11.0 Hypertensive heart disease with heart failure; Z20.822 Contact with and (suspected) exposure to COVID-19; I48.0 Paroxysmal atrial fibrillation; D64.9 Anemia, unspecified; I25.10 Atherosclerotic heart disease of native coronary artery without angina pectoris; E11.9 Type 2 diabetes mellitus without complications; Z79.01 Long term (current) use of anticoagulants; Z87.891 Personal history of nicotine dependence; Z95.810 Presence of automatic (implantable) cardiac defibrillator; I25.2 Old myocardial infarction; Z85.828 Personal history of other malignant neoplasm of skin
CPT/HCPCS: 36415; 71045; 71046; 76705; 80048; 80053; 80202; 81001; 82565; 82570; 82607; 82728; 82746; 82784; 83540; 83550; 83605; 83615; 83690; 83735; 83880; 83930; 83935; 84100; 84145; 84295; 84300; 84443; 84484; 85025; 85027; 85610; 85730; 86140; 86709; 86738; 86803; 87040; 87070; 87205; 87449; 87899; 92610; 94618; 94667; 96365; 96367; 97110; 97116; 97161; 97165; 97530; 97535; 99285; A9270; C9803; J0456; J0696; J1642; J1940; J1956; J3370; J7030; U0003; U0005

== ENCOUNTER 2022-06-14 10:34 | Outpatient (CLI) | payer MEDICARE, SELFPAY ==
[2022-06-14 13:26] LABS: INR 3.3; Prothrombin Time 32.2 Seconds (11.1-14.7)
== END 2022-06-14 10:35 | disposition home or self-care (01) ==
LOC: ANHLAB 10:38
PROVIDERS: PCP Internal Medicine; Visit Provider Internal Medicine
DX: I48.0 Paroxysmal atrial fibrillation (principal)
CPT/HCPCS: 36415; 85610

== ENCOUNTER 2022-06-22 09:54 | Inpatient (IN) | payer MEDICARE, SELFPAY ==
[2022-06-22] VITALS (20 sets, daily range): BP systolic 106–162; BP diastolic 57–91; PULSE 78–112; RESP 16–20; TEMP 36.2–36.9; O2SAT 97–100; BMI 21.7
--- NOTE | ~2022-06-22 | XR_ITS ---
EXAM: XR abdomen/kub 1V DATE: 06/22/2022 17:16 HISTORY: constipation, . COMPARISON: CT chest abdomen and pelvis 01/20/2021. FINDINGS: Clear lung bases. Normal bowel gas pattern. No organomegaly. Granulomatous liver and splen ic calcifications. 8 mm left nephrolith. Pelvic phleboliths. Severe degenerative change in the lumbar spine. IMPRESSION: No radiographic evidence of obstruction or ileus. Reviewed, dictated and finalized at location K.
[2022-06-22 10:21] LABS: Basophils Percent Auto 0.4 % (0.2-1.2); Eosinophils Percent Auto 0.4 % (0-4.4); Hematocrit 33.1 % (42.0-52.0); Immature Granulocyte Absolute 0.59 K/mm3 (0.00-0.031); Immature Granulocyte Percent A 7.1 % (0-0.5); Lymphocytes Percent Auto 66.3 % (18.3-44.2); Mean Corpuscular HGB Conc 30.2 g/dl (32-36); Mean Corpuscular Hemoglobin 30.5 pg (26-34); Mean Corpuscular Volume 100.9 fl (80-100); Mean Platelet Volume 9.9 fl (7.4-10.4); Monocytes Absolute Auto 0.4 K/mm3 (0.1-0.6); Monocytes Percent Auto 4.9 % (2.6-8.5); Neutrophils Absolute Auto 1.7 K/mm3 (1.3-6.7); Neutrophils Percent Auto 20.9 % (45.5-73.1); Platelet Count Result 200 k/mm3 (150-375); Red Blood Count 3.28 M/mm3 (4.6-6.20); Red Cell Distribution Width 19.4 % (11.5-14.5); White Blood Count 8.3 K/mm3 (4.5-10.0)
[2022-06-22 10:32] LABS: Partial Thromboplastin Time 50.5 SECONDS (22.3-36.8); Prothrombin Time 44.8 Seconds (11.1-14.7)
[2022-06-22 10:34] LABS: Alanine Aminotransferase 34 U/L (6-50); Albumin Level 3.2 g/dL (3.5-5.1); Alkaline Phosphatase 193 U/L (38-126); Anion Gap 11 mmol/L (8-16); Aspartate Amino Transferase 47 U/L (17-59); Bilirubin,Total 1.1 mg/dL (0.2-1.3); Blood Urea Nitrogen 51 mg/dL (9-20); Carbon Dioxide 24 mmol/L (22-30); Chloride 96 mmol/L (98-107); Estimated CRCL calculation 26 ml/min; Estimated Glomerular Filt Rate 41; Glucose 151 mg/dL (65-110); Sodium 131 mmol/L (137-145)
[2022-06-22 10:36] LABS: Platelet Estimate Adequate (Adequate)
[2022-06-22 10:37] LABS: Anisocytosis 1+ (NORMAL); Hypochromasia 1+ (NORMAL); Ovalocytes 1+ (NORMAL); Poikilocytosis 1+ (NORMAL)
--- NOTE | 2022-06-22 10:49 | ED.GIBLEED ---
HPI - GI Bleed General Chief complaint: GI Bleed Stated complaint: rectal bleeding Time Seen by Provider: 06/22/22 10:21 Source: patient, family, RN notes reviewed and old records reviewed Mode of arrival: ambulatory Limitations: no limitations History of Present Illness HPI Narrative: This is an 86 year old male with history of afib, chronic anticoagulation, chronic anemia, and CHF who presents for evaluation of rectal bleeding. Patient's states patient has been straining to have bowel movement all morning since 430 am. Patient states his stools have been hard and he was able to get small amount out. He states he has been digging and trying to get stool out. His reports he has been having rectal bleeding. He takes coumadin, and his states it was high during his hospitalization over 1.5 weeks ago . He denies epistaxis , hemoptysis or hematuria. He denies abdominal pain, nausea, vomiting, weakness, abdominal pain pain. He does report abdominal pain. Related Data Home Medications Medication Instructions Recorded Confirmed aspirin 81 mg chewable tablet 81 mg PO DAILY 06/26/20 06/22/22 atorvastatin 10 mg tablet 10 mg PO DAILY 06/26/20 06/22/22 isosorbide mononitrate 30 mg 30 mg PO QAM 06/26/20 06/22/22 tablet,extended release 24 hr carvedilol 6.25 mg tablet 6.25 mg PO BID 01/20/21 06/22/22 ondansetron HCl 8 mg tablet 8 mg PO Q8H PRN Nausea 01/20/21 06/22/22 warfarin 3 mg tablet 3 mg PO 5XW 01/20/21 06/22/22 ferrous sulfate 324 mg (65 mg 324 mg PO 3XW 12/12/21 06/22/22 iron) tablet,delayed release warfarin 2 mg tablet 2 mg PO 2XW 06/22/22 06/22/22 Allergies Allergy/AdvReac Type Severity Reaction Status Date / Time Penicillins Allergy Hives Verified 06/22/22 14:58 Review of Systems Review of Systems: All systems reviewed & are unremarkable except as noted in HPI and below Constitutional: Constitutional: Denies chills, Denies fatigue and Denies fever(s) Cardiovascular: Cardiovascular: Denies chest pain Respiratory: Respiratory: Denies chest congestion and Denies cough Gastrointestinal: Gastrointestinal: Denies abdominal pain, Reports constipation, Denies nausea and Denies vomiting Genitourinary: Genitourinary: Denies hematuria [facility] Past Medical History Medical History (Updated 06/22/22 @ 18:07 by Rose Marie Coughlin MD) Arteriovenous malformation of colon Asbestos exposure Atrial fibrillation Cardiac arrest (2017) Chronic anemia Chronic hyponatremia Chronic kidney disease Stage 3. GFR ranges between the mid 40s to 50s. Chronic lymphocytic leukemia Patient of Dr. Aashish Reynolds. Receives weekly rituximab infusions. Cirrhosis Noted on RUQ ultrasound in . Combined systolic and diastolic congestive heart failure Echocardiogram in January 2021 showed an EF of 40% with mild LV enlargement, mildly dilated aortic root, mild AR/MR, and grade 1 diastolic dysfunction. Coronary artery disease Cardiac catheterization 2018 showed multivessel CAD, treated medically. Current use of director long term care anticoagulation Diet-controlled diabetes mellitus Erosive gastritis Hypercholesterolemia Hypertension Myocardial infarction (2018) Nonsustained ventricular tachycardia Single-chamber [employer] ICD. Paroxysmal atrial fibrillation Skin cancer Surgical History Surgical History History of implantable cardioverter-defibrillator (ICD) insertion [employer] single-chamber. History of local excision of skin lesion History of thoracentesis Family History Family History Father Pneumonia Mother Acute myocardial infarction Son No problems noted. Social History Social History (Updated 06/22/22 @ 17:33 by Sulma Tolbert PA-C) Social History: The patient lives in [place] with his . They have 2 children, a daughter and a son. 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
--- NOTE | 2022-06-22 12:14 | PC.NURSE ---
Right upper chest port accessed with 1 inch port needle/ kit, blood returned noted, sterile procedure used, pt tolerated procedure without difficulty.
[2022-06-22] MEDS: PHYTONADIONE 5 MG TABLET PO ×2 (12:29→13:34)
[2022-06-22 12:33] LABS: Hematocrit 28.3 % (42.0-52.0); Hemoglobin 8.9 g/dL (14.0-18.0)
--- NOTE | 2022-06-22 13:15 | PM.IMHP ---
H&P: HPI History of Present Illness Date/Time: 06/22/22 13:15 Chief Complaint: Rectal bleeding. Narrative: This is a very pleasant 86-year-old male with history of AV malformations of the colon, erosive gastritis, cirrhosis noted on recent RUQ ultrasound, chronic lymphocytic leukemia, coronary artery disease, paroxysmal atrial fibrillation on chronic anticoagulation, heart failure with reduced ejection fraction status post ICD implantation, hypertension, hyperlipidemia, chronic anemia, and chronic kidney disease who presented to the emergency department for evaluation of rectal bleeding. He was hospitalized several weeks ago with pneumonia and CHF and was discharged on 06/11/2022. He has not had a good bowel movement since discharge, reportedly passing only 1 small and hard stool several days ago. He has been on the toilet since 04:30, straining to have a bowel movement; he has even tried to manually disimpact without success. He is now noticing some bright red blood coming from the rectum and he came in for evaluation. Vital signs were stable on arrival to the emergency department. Hemoglobin and hematocrit were 8.9 and 28.3% respectively. INR was elevated at 5.0. Rectal exam performed by the ED physician showed a moderate amount of stool at the rectum covered with blood, some of which was able to be removed. There was no significant bleeding noted. at the time my evaluation he is feeling a bit better after having some stool removed from the rectal vault. He thinks the constipation may be due to iron pills so he is now only taking that 3 times a week. He has not tried stool softeners or laxatives. Of note he had a high INR with his last admission and INR today is 5.0. Aside from rectal bleeding he has not noticed any blood loss, he specifically denies epistaxis, hematemesis, hemoptysis, and hematuria. Review of Systems Review of Systems: Twelve systems were reviewed. No fever, chills, or sweats. No cold or flu symptoms. No sick contacts. No chest pain or shortness of breath. No cough. No nausea or vomiting. Except as documented, all other systems were reviewed and are negative. [facility] Past Medical History Medical History (Updated 06/22/22 @ 13:18 by Sulma Tolbert PA-C) Arteriovenous malformation of colon Asbestos exposure Atrial fibrillation Cardiac arrest (2018) Chronic anemia Chronic hyponatremia Chronic kidney disease Stage 3. GFR ranges between the mid 40s to 50s. Chronic lymphocytic leukemia Patient of Dr. Aashish Reynolds. Receives weekly rituximab infusions. Cirrhosis Noted on RUQ ultrasound in . Combined systolic and diastolic congestive heart failure Echocardiogram in January 2021 showed an EF of 40% with mild LV enlargement, mildly dilated aortic root, mild AR/MR, and grade 1 diastolic dysfunction. Coronary artery disease Cardiac catheterization 2018 showed multivessel CAD, treated medically. Current use of [facility] anticoagulation Diet-controlled diabetes mellitus Erosive gastritis Hypercholesterolemia Hypertension Myocardial infarction (2018) Nonsustained ventricular tachycardia Single-chamber [employer] ICD. Paroxysmal atrial fibrillation Skin cancer Surgical History Surgical History History of implantable cardioverter-defibrillator (ICD) insertion [employer] single-chamber. History of local excision of skin lesion History of thoracentesis Family History Family History Father Pneumonia Mother Acute myocardial infarction Son No problems noted. Social History Social History (Updated 06/22/22 @ 17:33 by Sulma Tolbert PA-C) Social History: The patient lives in [place] with his . They have 2 children, a daughter and a son. He is retired from working at a [employer]. Occasional pipe, cigar, or chewing tobacco prior to 1973. He has not had alcohol
--- NOTE | 2022-06-22 14:40 | ADMGEN ---
This patient, Trey Sargent, was admitted to Medical Room 348-01. Patient/family oriented to hospital policies and general routines including ID bracelet, bed and alarms, visiting hours, pain management, procedures, bathroom and other care routines, personal items, smoking policy, room service/diet, and visiting hours. Information on how to activate the Rapid Response Team has been discussed. Patient/Family are encouraged to report perceived risks to care and to ask questions if they do not understand what they are told or what they should do.
[2022-06-22 17:10] LABS: Hematocrit 26.9 % (42.0-52.0); Hemoglobin 8.5 g/dL (14.0-18.0)
[2022-06-22 17:42] LABS: Glucose Point of Care 137 mg/dl (65-105)
[2022-06-22] MEDS: carvediloL 6.25 MG TABLET PO (20:47)
[2022-06-22 22:54] LABS: Hematocrit 25.8 % (42.0-52.0); Hemoglobin 8.1 g/dL (14.0-18.0)
[2022-06-23] VITALS (12 sets, daily range): BP systolic 110–126; BP diastolic 60–70; PULSE 74–99; RESP 16; TEMP 36.4–36.9; O2SAT 97–98
[2022-06-23 04:29] LABS: Basophils Percent Auto 0.3 % (0.2-1.2); Eosinophils Percent Auto 0.5 % (0-4.4); Hemoglobin 8.2 g/dL (14.0-18.0); Immature Granulocyte Absolute 0.47 K/mm3 (0.00-0.031); Immature Granulocyte Percent A 7.7 % (0-0.5); Lymphocytes Absolute Auto 3.67 K/mm3 (0.9-3.2); Lymphocytes Percent Auto 60.3 % (18.3-44.2); Mean Corpuscular HGB Conc 31.5 g/dl (32-36); Mean Corpuscular Hemoglobin 30.9 pg (26-34); Mean Corpuscular Volume 98.1 fl (80-100); Mean Platelet Volume 9.8 fl (7.4-10.4); Monocytes Absolute Auto 0.3 K/mm3 (0.1-0.6); Monocytes Percent Auto 5.3 % (2.6-8.5); Neutrophils Absolute Auto 1.6 K/mm3 (1.3-6.7); Neutrophils Percent Auto 25.9 % (45.5-73.1); Platelet Count Result 150 k/mm3 (150-375); Red Blood Count 2.65 M/mm3 (4.6-6.20); Red Cell Distribution Width 19.9 % (11.5-14.5); White Blood Count 6.1 K/mm3 (4.5-10.0)
[2022-06-23 04:48] LABS: Anion Gap 5 mmol/L (8-16); Blood Urea Nitrogen 43 mg/dL (9-20); Calcium 8.1 mg/dL (8.4-10.2); Carbon Dioxide 29 mmol/L (22-30); Chloride 98 mmol/L (98-107); Estimated CRCL calculation 32 ml/min; Estimated Glomerular Filt Rate 52; Glucose 118 mg/dL (65-110); Potassium 3.6 mmol/L (3.4-5.0); Sodium 132 mmol/L (137-145)
[2022-06-23 05:09] LABS: Platelet Estimate Adequate (Adequate)
[2022-06-23 05:10] LABS: Tear Drop Cells 1+ (NORMAL)
[2022-06-23 05:11] LABS: Ovalocytes 1+ (NORMAL)
[2022-06-23 05:26] LABS: INR 4.2
[2022-06-23] MEDS: carvediloL 6.25 MG TABLET PO ×2 (08:36→20:09)
[2022-06-23] MEDS: TAMSULOSIN HCL 0.4 MG CAPSULE PO (08:36)
[2022-06-23] MEDS: ATORVASTATIN 10 MG TABLET PO (08:37)
[2022-06-23] MEDS: ISOSORBIDE MONONITRATE 30 MG TAB.ER.24H PO (08:37)
[2022-06-23] MEDS: polyethylene glycoL 3350 17 GM POWD.PACK PO (08:38)
--- NOTE | 2022-06-23 10:31 | WPDGICN ---
Assessment and Plan Assessment and plan (1) Hematochezia: Code(s): K92.1 - Melena Status: Acute Assessment and Plan: probably perianal in setting of straining with more constipation and also elevated inr no need of repeat colonoscopy (AVM normally will cause more chronic anemia) unless ongoing bleeding agree to hold coumadin for now since is supra therapeutic (by primary) (2) Constipation: Code(s): K59.00 - Constipation, unspecified Status: Acute Assessment and Plan: miralax, bowel management, avoid straining better (3) Supratherapeutic INR: Code(s): R79.1 - Abnormal coagulation profile Status: Acute (4) Chronic kidney disease: Code(s): N18.9 - Chronic kidney disease, unspecified Status: Acute (5) Chronic anemia: Code(s): D64.9 - Anemia, unspecified Status: Acute Assessment and Plan: continue to monitor (6) Chronic lymphocytic leukemia: Code(s): C91.10 - Chronic lymphocytic leukemia of B-cell type not having achieved remission Status: Acute (7) AVM (arteriovenous malformation) of colon: Code(s): K55.20 - Angiodysplasia of colon without hemorrhage Status: Acute GI Consult Note Consult date/time: 06/23/22 10:31 Reason for consult: fecal impaction/constipation, rectal bleeding HPI: Trey Sargent is a 86 year old male with history of AV malformations of the colon (found in 2020 when had colonoscopy when he presented with gib in setting of supratherapeutic inr, egd with erosive gastritis and 2 AVM in right colon treated with apc, also had diverticulosis and small polyp removed), cirrhosis noted on recent RUQ ultrasound, chronic lymphocytic leukemia, coronary artery disease, paroxysmal atrial fibrillation on chronic anticoagulation, heart failure with reduced ejection fraction status post ICD implantation, hypertension, hyperlipidemia, chronic anemia, and chronic kidney disease. Here with more constipation after recent hospitalization for pneumonia with hard stool several days ago. He spent long time in the toilet and was straining to have a bowel movement, even tried to manually disimpact without success and finally noted some bright red blood coming from the rectum. Hemoglobin and hematocrit were 8.9 and 28.3% respectively. INR was elevated at 5.0. Rectal exam performed by the ED physician showed a moderate amount of stool at the rectum covered with blood, some of which was able to be removed. There was no significant bleeding noted. Now he is eating without any problem and no more bleeding. Review of Systems Review of Systems: All systems reviewed & are unremarkable except as noted in HPI and below Constitutional: Constitutional: Denies chills, Denies fatigue and Denies fever(s) Eyes: Eyes: Denies blurry vision ENT: Denies dysphagia Cardiovascular: Cardiovascular: Denies chest pain Respiratory: Respiratory: Denies chest congestion and Denies cough Gastrointestinal: Gastrointestinal: Denies abdominal pain, Reports constipation, Denies nausea and Denies vomiting Genitourinary: Genitourinary: Denies hematuria Musculoskeletal: Musculoskeletal: Denies arthralgias Integumentary/Breasts: Skin/Breast: Denies rash Neurologic: Denies Abnormal speech present Psychiatric: Psychiatric: Denies behavioral changes [facility] Past Medical History Medical History (Updated 06/23/22 @ 10:36 by Nazario Son MD) Arteriovenous malformation of colon Asbestos exposure Atrial fibrillation Cardiac arrest (2017) Chronic anemia Chronic hyponatremia Chronic kidney disease Stage 3. GFR ranges between the mid 40s to 50s. Chronic lymphocytic leukemia Patient of Dr. Aashish Reynolds. Receives weekly rituximab infusions. Cirrhosis Noted on RUQ ultrasound in . Combined systolic and diastolic congestive heart failure Echocardiogram in January 2021 showed an EF of 40% with mild LV enlargement, mildly dilated aortic jackie
[2022-06-23] MEDS: ACETAMINOPHEN 325 MG TABLET 650 MG PO (11:21)
[2022-06-23 11:55] LABS: Hematocrit 23.9 % (42.0-52.0); Hemoglobin 7.5 g/dL (14.0-18.0)
--- NOTE | 2022-06-23 17:18 | PM.IMPN ---
Progress Note: A&P Assessment and Plan (1) Rectal bleeding: Code(s): K62.5 - Hemorrhage of anus and rectum Status: Acute Assessment and Plan: Per ED physician, stool in the rectal vault was coated with bright red blood though not in significant quantities. 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 Hemoglobin was 10 on admission but dropped to 8 range. Now down to 7.5. Still having streaks of blood in stool. Monitor HH closely. (2) Warfarin-induced coagulopathy: Code(s): D68.32 - Hemorrhagic disorder due to extrinsic circulating anticoagulants; T45.515A - Adverse effect of anticoagulants, initial encounter Status: Acute Assessment and Plan: INR was 5.0. INR was not reversed. INR better at 4.2. Continue to monitor. Resume Coumadin when INR better and rectal bleeding has stopped. (3) Urine retention: Code(s): R33.9 - Retention of urine, unspecified Status: Acute Assessment and Plan: Patient found to have urine retention overnight. Bladder scanner showed 713 cc. Remy catheter placed. Flomax started. Voiding trial in a few days. Your attention may be related to constipation. (4) Constipation: Code(s): K59.00 - Constipation, unspecified Status: Acute Assessment and Plan: Stool was able to be removed on rectal exam in the ER. He was started on MiraLax with good results. Constipation resolving. (5) Chronic anemia: Code(s): D64.9 - Anemia, unspecified Status: Acute Assessment and Plan: Madelyn has a chronic anemia related to the CLL. Baseline mostly in the 8-9 range. As above. (6) Chronic kidney disease: Code(s): N18.9 - Chronic kidney disease, unspecified Status: Acute Assessment and Plan: YAJAIRA on admission with Cr 1.6 but it has corrected quickly to 1.3 which is closer to his baseline. Monitor. (7) Chronic hyponatremia: Code(s): E87.1 - Hypo-osmolality and hyponatremia Status: Acute Assessment and Plan: Sodium is low but stable at 132. Follow. (8) Combined systolic and diastolic congestive heart failure: Code(s): I50.40 - Unspecified combined systolic (congestive) and diastolic (congestive) heart failure Status: Acute Assessment and Plan: He appears clinically compensated. Monitor volume status closely. Continue Coreg. (9) Hypertension: Code(s): I10 - Essential (primary) hypertension Status: Acute Assessment and Plan: Patient's blood pressure was reviewed on 06/23 Blood pressure remains well controlled. Will continue current medications. (10) Chronic lymphocytic leukemia: Code(s): C91.10 - Chronic lymphocytic leukemia of B-cell type not having achieved remission Status: Acute Assessment and Plan: Patient was on Rituxan for CLL. Subjective Date/time seen: 06/23/22 17:19 Interval history: 86yo male with CKD, HTN and CLL on Rituxan here for rectal bleeding. Patient is now having soft stools with streaks of blood. no Cp or SOB. productive cough but no hemoptysis. no n/v. Had difficulty voiding last night so Remy placed. Bladder scan showing 714cc Exam Narrative: AF 97.5 114/65 82 16 98% ra Gen - NARD Chest - lungs clear anteriorly andin the flanks, nml RR CV - irregularly irregular. Right chest port noted Abd - Soft, NT/ND, Positive BS - Remy secured draining clear yellow urine. Ext - No pedal edema Psych - Nml mood and affect Skin - Warm and dry Objective Data Vital Signs Vital Signs: Vital Signs - 24 hr 06/22/22 20:00 06/22/22 20:47 06/22/22 20:00 Temperature Pulse Rate 98 78 Respiratory Rate Blood Pressure Pulse Oximetry Oxygen Delivery Room Air 06/22/22 21:38 06/23/22 00:00 06/23/22 04:00 Temperature 98.
[2022-06-23 18:32] LABS: Hematocrit 24.9 % (42.0-52.0); Hemoglobin 7.8 g/dL (14.0-18.0)
[2022-06-23 23:09] LABS: Hemoglobin 7.4 g/dL (14.0-18.0)
[2022-06-24 05:49] LABS: Hematocrit 24.5 % (42.0-52.0); Hemoglobin 7.6 g/dL (14.0-18.0); Mean Corpuscular Hemoglobin 30.8 pg (26-34); Mean Corpuscular Volume 99.2 fl (80-100); Mean Platelet Volume 10.5 fl (7.4-10.4); Platelet Count Result 134 k/mm3 (150-375); Red Blood Count 2.47 M/mm3 (4.6-6.20); Red Cell Distribution Width 19.9 % (11.5-14.5); White Blood Count 5.7 K/mm3 (4.5-10.0)
[2022-06-24 06:00] VITALS: BP 106/60; PULSE 80; RESP 16; TEMP 36.7; O2SAT 98
[2022-06-24 06:06] LABS: Albumin Level 2.3 g/dL (3.5-5.1); Anion Gap 3 mmol/L (8-16); Blood Urea Nitrogen 33 mg/dL (9-20); Calcium 7.5 mg/dL (8.4-10.2); Carbon Dioxide 28 mmol/L (22-30); Chloride 96 mmol/L (98-107); Estimated CRCL calculation 34 ml/min; Estimated Glomerular Filt Rate 57; Glucose 114 mg/dL (65-110); Magnesium 1.9 mg/dL (1.6-2.3); Phosphorus 2.3 mg/dL (2.5-4.5); Potassium 3.9 mmol/L (3.4-5.0); Sodium 127 mmol/L (137-145)
[2022-06-24 06:55] LABS: Band Neutrophils Percent 6 % (0-6); Lymphocytes Absolute Manual 3.59 K/mm3 (1.1-4.5); Neutrophils Percent Manual 31 % (46-73); Platelet Estimate Adequate (Adequate); Total Cells Counted 100
[2022-06-24 06:56] LABS: Anisocytosis 1+ (NORMAL); Macrocytosis 1+ (NORMAL); Poikilocytosis 1+ (NORMAL); Smudge Cells PRESENT
[2022-06-24 08:55] VITALS: PULSE 94
[2022-06-24] MEDS: carvediloL 6.25 MG TABLET PO ×2 (08:55→21:54)
[2022-06-24] MEDS: ATORVASTATIN 10 MG TABLET PO (08:55)
[2022-06-24] MEDS: TAMSULOSIN HCL 0.4 MG CAPSULE PO (08:55)
[2022-06-24] MEDS: FERROUS SULFATE 324 MG TABLET PO (08:55)
[2022-06-24] MEDS: ISOSORBIDE MONONITRATE 30 MG TAB.ER.24H PO (08:55)
[2022-06-24] MEDS: polyethylene glycoL 3350 17 GM POWD.PACK PO (08:56)
[2022-06-24] MEDS: POTASSIUM/PHOSPHORUS/SODIUM 1.5 GM PACKET 1 PACKET PO (08:56)
[2022-06-24 10:28] LABS: INR 2.8; Prothrombin Time 28.7 Seconds (11.1-14.7)
[2022-06-24 10:47] VITALS: BMI 23.8
--- NOTE | 2022-06-24 12:21 | WPDGIPROGNO ---
Progress Note: A&P Assessment and Plan (1) Hematochezia: Code(s): K92.1 - Melena Status: Acute Assessment and Plan: probably this is in the setting of elevated INR with constipation that caused straining and rectal manipulation continue to monitor hb mid 7 defer colonoscopy unless more obvious bleeding, last time had only small AVM treated with apc (2) Supratherapeutic INR: Code(s): R79.1 - Abnormal coagulation profile Status: Acute Assessment and Plan: inr down to mid 2 (3) Constipation: Code(s): K59.00 - Constipation, unspecified Status: Acute Assessment and Plan: on meds (4) Chronic anemia: Code(s): D64.9 - Anemia, unspecified Status: Acute Subjective Date/time seen: 06/24/22 12:21 Interval history: he is comfortable, no pain, + cough Review of Systems Review of Systems: All systems reviewed & are unremarkable except as noted in HPI and below Exam Narrative: Gen - NARD, pleasant Chest - lungs clear anteriorly,, nml RR CV - irregularly irregular. Right chest port noted Abd - Soft, NT/ND, Positive BS - Remy secured draining clear yellow urine. Ext - No pedal edema Psych - Nml mood and affect Skin - Warm and dry Objective Data Vital Signs Vital Signs: Vital Signs - 24 hr 06/23/22 15:00 06/23/22 16:00 06/23/22 20:09 Temperature 97.5 F L Pulse Rate 82 86 74 Respiratory Rate 16 Blood Pressure 114/65 Pulse Oximetry 98 Oxygen Delivery 06/23/22 20:00 06/23/22 20:00 06/23/22 21:51 Temperature 98.0 F Pulse Rate 74 74 88 Respiratory Rate 16 16 16 Blood Pressure 114/65 110/60 Pulse Oximetry 98 98 98 Oxygen Delivery Room Air 06/24/22 06:00 06/24/22 08:55 Temperature 98.1 F Pulse Rate 80 94 Respiratory Rate 16 Blood Pressure 106/60 Pulse Oximetry 98 Oxygen Delivery Intake/Output Intake/Output: Intake & Output 06/21/22 06/22/22 06/23/22 06/24/22 23:59 23:59 23:59 23:59 Intake Total 240 720 240 Output Total 125 1400 1200 Balance 232 -730 -693 Meds/Results Medications: Active Medications Generic Name Dose Route Start Last Admin Trade Name Freq PRN Reason Stop Dose Admin Acetaminophen 650 mg 06/23/22 10:52 06/23/22 11:21 Acetaminophen 325 Mg Tablet PO 650 mg Q6H PRN Administration Mild Pain (1-3) or Fever Atorvastatin Calcium 10 mg 06/23/22 09:00 06/24/22 08:55 Atorvastatin 10 Mg Tablet PO 10 mg DAILY PRATIK Administration Carvedilol 6.25 mg 06/22/22 21:00 06/24/22 08:55 Carvedilol 6.25 Mg Tablet PO 6.25 mg Q12HR PRATIK Administration Ferrous Sulfate 324 mg 06/24/22 09:00 06/24/22 08:55 Ferrous Sulfate 324 Mg Tablet PO 324 mg [id number] [facility] Administration Isosorbide Mononitrate 30 mg 06/23/22 09:00 06/24/22 08:55 Isosorbide Mononitrate 30 Mg Tab.Er.24h PO 30 mg QAM [facility] Administration Miconazole Nitrate 1 applic 06/24/22 11:00 Miconazole 2% Antifungal Ointment 56 Gm TOPICAL Q12HR [facility] Ondansetron HCl 4 mg 06/22/22 12:08 Ondansetron Inj 4 Mg/2 Ml Vial IV PUSH Q4H PRN Nausea Polyethylene Glycol 17 gm 06/23/22 09:00 06/24/22 08:56 Polyethylene Glycol 3350 17 Gm Powd.Pack PO 17 gm QAM PRATIK Administration Tamsulosin HCl 0.4 mg 06/23/22 09:00 06/24/22 08:55 Tamsulosin Hcl 0.4 Mg Capsule PO 0.4 mg QAM [facility] Administration Radiology Results: ITS Impressions Abdomen X-Ray 06/22/22 17:21 IMPRESSION: No radiographic evidence of obstruction or ileus. Labs Labs: Laboratory Results - last 24 hr 06/23/22 06/23/22 06/24/22 17:57 23:04 05:11 WBC 5.7 RBC 2.47 L Hgb 7.8 L 7.4 L 7.6 L Hct 24.9 L 23.0 L 24.5 L MCV 99.2 MCH 30.8 MCHC 31.0 L RDW 19.9 H Plt Count 134 L MPV 10.5 H Immature Gran % (Auto) Not Reportable Neut % (Auto) Not Reportable Lymph % (Auto) Not Reportable Alfalfa % (Auto) Not Reportable Eos
[2022-06-24 14:00] VITALS: BP 127/58; PULSE 97; RESP 16; TEMP 36.2; O2SAT 99
--- NOTE | 2022-06-24 14:39 | PM.IMPN ---
Progress Note: A&P Assessment and Plan (1) Rectal bleeding: Code(s): K62.5 - Hemorrhage of anus and rectum Status: Acute Assessment and Plan: Per ED physician, stool in the rectal vault was coated with bright red blood though not in significant quantities. 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 Hemoglobin was 10 on admission but dropped to 7 range. Still having streaks of blood in stool. Monitor HH closely. Add Tucks for rectal pain. Continue Miralax (2) Warfarin-induced coagulopathy: Code(s): D68.32 - Hemorrhagic disorder due to extrinsic circulating anticoagulants; T45.515A - Adverse effect of anticoagulants, initial encounter Status: Acute Assessment and Plan: INR was 5.0. INR was not reversed. INR better at 2.8. Continue to monitor. Will resume Coumadin once bleeding has stopped. (3) Urine retention: Code(s): R33.9 - Retention of urine, unspecified Status: Acute Assessment and Plan: Patient found to have urine retention. Bladder scanner showed 713 cc. Remy catheter placed. Flomax started. Voiding trial in a few days. Urine retention may be related to constipation. (4) Constipation: Code(s): K59.00 - Constipation, unspecified Status: Acute Assessment and Plan: Stool was able to be removed on rectal exam in the ER. He was started on MiraLax with good results. Constipation resolving. As above. (5) Chronic anemia: Code(s): D64.9 - Anemia, unspecified Status: Acute Assessment and Plan: Madelyn has a chronic anemia related to the CLL. Baseline mostly in the 8-9 range. hgb now in the 7 range. Continue to hold Coumadin for now. As above. (6) Chronic kidney disease: Code(s): N18.9 - Chronic kidney disease, unspecified Status: Acute Assessment and Plan: YAJAIRA on admission with Cr 1.6 but it has corrected to 1.2 which is closer to his baseline. Monitor. (7) Chronic hyponatremia: Code(s): E87.1 - Hypo-osmolality and hyponatremia Status: Acute Assessment and Plan: Sodium has dropped to 127. Possibly SIADH related to pain. Follow. Check urine Na. (8) Combined systolic and diastolic congestive heart failure: Code(s): I50.40 - Unspecified combined systolic (congestive) and diastolic (congestive) heart failure Status: Acute Assessment and Plan: He appears clinically compensated. Monitor volume status closely. Continue Coreg. (9) Hypertension: Code(s): I10 - Essential (primary) hypertension Status: Acute Assessment and Plan: Patient's blood pressure was reviewed on 06/24 Blood pressure remains well controlled. Will continue current medications. (10) Chronic lymphocytic leukemia: Code(s): C91.10 - Chronic lymphocytic leukemia of B-cell type not having achieved remission Status: Acute Assessment and Plan: Patient was on Rituxan for CLL. Followed by Oncology. Subjective Date/time seen: 06/24/22 14:39 Interval history: 86yo male with CKD, HTN and CLL on Rituxan here for rectal bleeding. Still having BMs. Hasn't been up out of bed yet. Slept poorly. Having rectal pain still. Cough productive of clear sputum Exam Narrative: AF 98.1 106/60 94 16 98% ra Gen - NARD Chest - CTA bilaterally CV -RRR. Right chest port noted Abd - Soft, NT/ND, Positive BS - Remy secured draining clear yellow urine. Ext - No pedal edema Psych - Nml mood and affect Skin - Warm and dry Objective Data Vital Signs Vital Signs: Vital Signs - 24 hr 06/23/22 15:00 06/23/22 16:00 06/23/22 20:09 Temperature 97.5 F L Pulse Rate 82 86 74 Respiratory Rate 16 Blood Pressure 114/65 Pulse Oximetry 98 Oxygen Delivery 06/23/22 20:00 06/23/22 20:00 06/23/22 21:51 Te
[2022-06-24 16:00] VITALS: BP 110/81
[2022-06-24 16:01] VITALS: BP 104/54; BP 91/75
[2022-06-24 16:46] LABS: Creatinine Urine 59.2 mg/dL
[2022-06-24 16:51] LABS: Sodium Urine Random 19 meq/L
[2022-06-24 16:57] LABS: Hematocrit 25.6 % (42.0-52.0)
[2022-06-24 21:54] VITALS: PULSE 90
[2022-06-24] MEDS: HYDROCORTISONE ACETATE 25 MG SUPPOSITORY RECTAL (21:54)
[2022-06-25 00:40] VITALS: BP 103/64; PULSE 90; RESP 18; TEMP 36.6; O2SAT 99
[2022-06-25 04:16] VITALS: BP 130/78; PULSE 83; RESP 18; TEMP 36.5; O2SAT 100
[2022-06-25 07:50] LABS: Hematocrit 23.9 % (42.0-52.0); Hemoglobin 7.6 g/dL (14.0-18.0); Mean Corpuscular HGB Conc 31.8 g/dl (32-36); Mean Corpuscular Hemoglobin 31.4 pg (26-34); Mean Corpuscular Volume 98.8 fl (80-100); Mean Platelet Volume 9.2 fl (7.4-10.4); Platelet Count Result 122 k/mm3 (150-375); Red Blood Count 2.42 M/mm3 (4.6-6.20); Red Cell Distribution Width 19.6 % (11.5-14.5); White Blood Count 5.8 K/mm3 (4.5-10.0)
[2022-06-25 07:59] LABS: Albumin Level 2.3 g/dL (3.5-5.1); Anion Gap 5 mmol/L (8-16); Blood Urea Nitrogen 29 mg/dL (9-20); Calcium 7.5 mg/dL (8.4-10.2); Carbon Dioxide 28 mmol/L (22-30); Chloride 95 mmol/L (98-107); Estimated CRCL calculation 38 ml/min; Estimated Glomerular Filt Rate > 60; Glucose 112 mg/dL (65-110); Phosphorus 2.6 mg/dL (2.5-4.5); Potassium 3.9 mmol/L (3.4-5.0); Sodium 128 mmol/L (137-145)
[2022-06-25 08:00] VITALS: BP 113/58; PULSE 78; RESP 18; O2SAT 100
[2022-06-25 08:09] LABS: INR 2.2
[2022-06-25] MEDS: ISOSORBIDE MONONITRATE 30 MG TAB.ER.24H PO (08:20)
[2022-06-25] MEDS: ATORVASTATIN 10 MG TABLET PO (08:20)
[2022-06-25] MEDS: TAMSULOSIN HCL 0.4 MG CAPSULE PO (08:21)
[2022-06-25] MEDS: HYDROCORTISONE ACETATE 25 MG SUPPOSITORY RECTAL (08:21)
[2022-06-25] MEDS: polyethylene glycoL 3350 17 GM POWD.PACK PO (08:21)
[2022-06-25 08:59] VITALS: PULSE 78
[2022-06-25] MEDS: carvediloL 6.25 MG TABLET PO (08:59)
[2022-06-25 09:43] VITALS: BP 100/41; BP 101/54
--- NOTE | 2022-06-25 11:00 | PC.NURSE ---
On 06/25/22, the student, Sonia Dinh, provided care and completed [facility] documentation on this patient. I have reviewed the student's documentation and agree with the findings.
--- NOTE | 2022-06-25 13:41 | WPDGIPROGNO ---
Progress Note: A&P Assessment and Plan (1) Hematochezia: Code(s): K92.1 - Melena Status: Acute Assessment and Plan: probably this is in the setting of elevated INR with constipation that caused straining and rectal manipulation continue to monitor hb mid 7 and stable defer colonoscopy unless more obvious bleeding, last time had only small AVM treated with apc will follow from afar (2) Supratherapeutic INR: Code(s): R79.1 - Abnormal coagulation profile Status: Acute Assessment and Plan: inr down to 2.2 (3) Constipation: Code(s): K59.00 - Constipation, unspecified Status: Acute Assessment and Plan: on meds (4) Chronic anemia: Code(s): D64.9 - Anemia, unspecified Status: Acute Subjective Date/time seen: 06/25/22 13:41 Interval history: no new events, mild rectal pain Review of Systems Review of Systems: All systems reviewed & are unremarkable except as noted in HPI and below Exam Narrative: Gen - NARD, pleasant Chest - lungs clear anteriorly,, nml RR CV - irregularly irregular. Right chest port noted Abd - Soft, NT/ND, Positive BS - Remy secured draining clear yellow urine. Ext - No pedal edema Psych - Nml mood and affect Skin - Warm and dry Objective Data Vital Signs Vital Signs: Vital Signs - 24 hr 06/24/22 14:00 06/24/22 16:00 06/24/22 16:01 Temperature 97.2 F L Pulse Rate 97 Respiratory Rate 16 Blood Pressure 127/58 L 110/81 104/54 L Pulse Oximetry 99 Oxygen Delivery 06/24/22 16:01 06/24/22 21:54 06/25/22 00:40 Temperature 98 F Pulse Rate 90 90 Respiratory Rate 18 Blood Pressure 91/75 L 103/64 Pulse Oximetry 99 Oxygen Delivery 06/24/22 20:00 06/25/22 04:16 06/25/22 08:59 Temperature 97.7 F Pulse Rate 83 78 Respiratory Rate 18 Blood Pressure 130/78 Pulse Oximetry 100 Oxygen Delivery Room Air 06/25/22 09:31 06/25/22 08:00 06/25/22 09:43 Temperature Pulse Rate Respiratory Rate Blood Pressure 113/58 L 101/54 L Pulse Oximetry Oxygen Delivery Room Air 06/25/22 09:43 06/25/22 08:00 06/25/22 10:20 Temperature Pulse Rate 78 Respiratory Rate 18 Blood Pressure 100/41 L Pulse Oximetry 100 Oxygen Delivery Room Air Room Air Intake/Output Intake/Output: Intake & Output 06/22/22 06/23/22 06/24/22 06/25/22 23:59 23:59 23:59 23:59 Intake Total 240 830 119 7270 Output Total 125 1400 1600 2050 Balance 960 -963 -880 -833 Meds/Results Medications: Active Medications Generic Name Dose Route Start Last Admin Trade Name Freq PRN Reason Stop Dose Admin Acetaminophen 650 mg 06/23/22 10:52 06/23/22 11:21 Acetaminophen 325 Mg Tablet PO 650 mg Q6H PRN Administration Mild Pain (1-3) or Fever Atorvastatin Calcium 10 mg 06/23/22 09:00 06/25/22 08:20 Atorvastatin 10 Mg Tablet PO 10 mg DAILY PRATIK Administration Carvedilol 6.25 mg 06/22/22 21:00 06/25/22 08:59 Carvedilol 6.25 Mg Tablet PO 6.25 mg Q12HR PRATIK Administration Ferrous Sulfate 324 mg 06/24/22 09:00 06/24/22 08:55 Ferrous Sulfate 324 Mg Tablet PO 324 mg [id number] PRATIK Administration Hydrocortisone Acetate 25 mg 06/24/22 21:00 06/25/22 08:21 Hydrocortisone Acetate 25 Mg Suppository RECTAL 25 mg Q12HR PRATIK Administration Isosorbide Mononitrate 30 mg 06/23/22 09:00 06/25/22 08:20 Isosorbide Mononitrate 30 Mg Tab.Er.24h PO 30 mg QAM PRATIK Administration Miconazole Nitrate 1 applic 06/24/22 11:00 06/25/22 08:21 Miconazole 2% Antifungal Ointment 56 Gm TOPICAL 1 applic Q12HR PRATIK Administration Ondansetron HCl 4 mg 06/22/22 12:08 Ondansetron Inj 4 Mg/2 Ml Vial IV PUSH Q4H PRN Nausea Polyethylene Glycol 17 gm 06/23/22 09:00 06/25/22 08:21 Polyethylene Glycol 3350 17 Gm Powd.Pack PO 17 gm QAM PRATIK Administration Tamsulosin HCl 0.4 mg 06/23/22 09:00 06/25/22 08:21 Ta
[2022-06-25 14:00] VITALS: BP 103/61; PULSE 87; RESP 18; TEMP 36.8; O2SAT 98
--- NOTE | 2022-06-25 15:05 | PM.DS ---
DS: Admitting Diagnosis Discharge Date 06/25/22 Admitting Diagnosis Rectal bleeding DS: Discharge Diagnosis Discharge Diagnosis (1) Rectal bleeding: Code(s): K62.5 - Hemorrhage of anus and rectum Status: Acute (2) Warfarin-induced coagulopathy: Code(s): D68.32 - Hemorrhagic disorder due to extrinsic circulating anticoagulants; T45.515A - Adverse effect of anticoagulants, initial encounter Status: Acute (3) Urine retention: Code(s): R33.9 - Retention of urine, unspecified Status: Acute (4) Constipation: Code(s): K59.00 - Constipation, unspecified Status: Acute (5) Chronic anemia: Code(s): D64.9 - Anemia, unspecified Status: Acute (6) Chronic kidney disease: Code(s): N18.9 - Chronic kidney disease, unspecified Status: Acute (7) Chronic hyponatremia: Code(s): E87.1 - Hypo-osmolality and hyponatremia Status: Acute (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 Please see H&P for details Hospital Course: Per ED physician, stool in the rectal vault was coated with bright red blood though not in significant quantities. 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 GI was consulted but colonoscopy was deferred because again felt patient was having rectal bleeding related to straining. Hemoglobin was 10 on admission but dropped to 7 range. We added Tucks for rectal pain. Started Miralax as well. INR was 5.0. INR was not reversed. INR better at 2.2. We resumed Coumadin at discharge at lower dose. Patient found to have urine retention.? Bladder scanner showed 713 cc.? Remy catheter placed.? Flomax started.?Plan for him to follow up with Urology for voiding trial. Patient has a chronic anemia related to the CLL. Baseline mostly in the 8-9 range. Hgb now in the 7 range and stable. YAJAIRA on admission with Cr 1.6 but it has corrected to 1.1 which is closer to his baseline. Sodium had dropped to 127. Possibly SIADH related to pain. Repeat Na 128. Patient's rectal pain is much improved. He has been up ambulating to the bathroom. Patient feels ready for discharge. He overall did well was able to discharged on 06/25/2022 Status at Discharge Cognitive/behavioral status at discharge: Stable Time Spent with Patient Time attestation: Total time spent providing and/or coordinating discharge services: 35 minutes Time spent: Greater than 30 minutes Exam Narrative: AF 98.2 103/61 87 18 98% ra Gen - NARD Chest - CTA bilaterally CV -RRR. S1/S2 Abd - Soft, NT/ND, Positive BS - Remy secured draining clear yellow urine. Ext - No pedal edema Psych - Nml mood and affect Skin - Warm and dry DS: Data Data Completed and Pending Labs on day of discharge: Labs from last 24 hours 06/25/22 06/25/22 06/25/22 07:44 07:39 07:39 WBC 5.8 RBC 2.42 L Hgb 7.6 L Hct 23.9 L MCV 98.8 MCH 31.4 MCHC 31.8 L RDW 19.6 H Plt Count 122 L MPV 9.2 PT 24.0 H INR 2.2 Sodium 128 L Potassium 3.9 Chloride 95 L Carbon Dioxide 28 Anion Gap 5 L BUN 29 H Creatinine 1.10 Estim Creat Clear Calc 38 Estimated GFR > 60 Glucose 112 H Calcium 7.5 L Phosphorus 2.6 Albumin 2.3 L Ur Random Sodium Urine Creatinine 06/24/2206/06
--- NOTE | 2022-06-25 18:02 | PC.NURSE ---
[employer] Hel[employer] removed port needle
== END 2022-06-25 18:00 | disposition home health service (06) | DRG 378 ==
LOC: ANHED 10:30 → ANH3MED 14:12
PROVIDERS: Physician Assistant; Admitting Provider Family Medicine; Emergency Provider General Practice; PCP Internal Medicine; Visit Provider Internal Medicine
DX: K62.5 Hemorrhage of anus and rectum (principal); C91.10 Chronic lymphocytic leukemia of B-cell type not having achieved remission; D68.32 Hemorrhagic disorder due to extrinsic circulating anticoagulants; I13.0 Hypertensive heart and chronic kidney disease with heart failure and stage 1 through stage 4 chronic kidney disease, or unspecified chronic kidney disease; I50.42 Chronic combined systolic (congestive) and diastolic (congestive) heart failure; E22.2 Syndrome of inappropriate secretion of antidiuretic hormone; T45.515A Adverse effect of anticoagulants, initial encounter; K59.00 Constipation, unspecified; N18.30 Chronic kidney disease, stage 3 unspecified; R33.9 Retention of urine, unspecified; D63.0 Anemia in neoplastic disease; I48.0 Paroxysmal atrial fibrillation; E78.5 Hyperlipidemia, unspecified; I48.91 Unspecified atrial fibrillation; R33.8 Other retention of urine; K55.20 Angiodysplasia of colon without hemorrhage; I25.10 Atherosclerotic heart disease of native coronary artery without angina pectoris; E11.22 Type 2 diabetes mellitus with diabetic chronic kidney disease; Z79.82 Long term (current) use of aspirin; I25.2 Old myocardial infarction; Z85.828 Personal history of other malignant neoplasm of skin; Z95.810 Presence of automatic (implantable) cardiac defibrillator
CPT/HCPCS: 36415; 74018; 80048; 80053; 80069; 82570; 82948; 83735; 84300; 85014; 85018; 85025; 85027; 85610; 85730; 86850; 86900; 86901; 97161; 97165; 99285; A9270; G0378

== ENCOUNTER 2022-07-11 15:38 | Outpatient (CLI) | payer MEDICARE, SELFPAY ==
[2022-07-11 15:02] LABS: INR 4.9; Prothrombin Time 44.4 Seconds (11.1-14.7)
== END 2022-07-11 15:39 | disposition home or self-care (01) ==
LOC: ANHLAB 15:40
PROVIDERS: PCP Internal Medicine; Visit Provider Internal Medicine Cardiovascular Disease
DX: I48.0 Paroxysmal atrial fibrillation (principal); Z79.01 Long term (current) use of anticoagulants
CPT/HCPCS: 85610